=== PATIENT | female | born 1935 | race Caucasian/White ===

== ENCOUNTER 2020-07-18 08:10 | Observation (INO) | payer OTHER ==
--- OUTSIDE RECORDS SUMMARY | 2020-07-18 08:29 | XMS REPORT | Continuity of Care Document ---
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 15 Helio rso of cheek of cheek 00:00: n 00 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 10-28 Anderso 00:00: n 00 Pigmented Pigmented Disease Active skin skin 10-28 Anderso lesion lesion 00:00: n 00 Arrhythmia Arrhythmia Disease Active M D 10-28 Anderso 00:00: n 00 TIA TIA Disease Active 5-04 Anderso 00:00: n 00 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) Sick sinus Sick sinus Disease Active Overview : syndrome syndrome permanent And erso pacemaker n Hypothyroi Hypothyroi Disease Active M D dism dism Anderso n Hypertensi Hypertensi Disease Active D on on Anderso n Hyperlipid Hyperlipid Disease Active D emia emia Anderso n Gastroesop Gastroesop Disease Active D hageal hageal Anderso reflux reflux n disease disease Basal cell Basal cell Disease Active D carcinoma carcinoma Helio rso of other of other n specified specified sites of sites of skin skin Allergic Allergic Disease Active rhinitis rhinitis Mckay o n Presence Presence Disease Active MD of cardiac of cardiac An derso pacemaker pacemaker n Allergies, Adverse Reactions, Alerts This patient has no known allergies or adverse reactions. Family History Family Member Diagnosis Comments Start Date Stop Date Source Maternal grandfather Hypertension MD Bailey Maternal grandmother Hypertension MD Bailey Maternal grandmother Stroke MD Amee cochran Natural mother Hypertension Cuong son Paternal aunt Diabetes MD Bailey Paternal grandfather Hypertension MD Bailey Paternal grandmother Heart disease Edilma Bailey Paternal grandmother Hypertension MD Bailey Paternal grandmother Stroke MD Amee cochran Family member -Melanoma MD Bailey Family member Coronary heart disease MD Bailey (CHD) Family member Venous thrombosis MD Amee cochran Social History Social Habit Start Date Stop Date Quantity Comments Source History of tobacco Current smoker MD Bailey use Sex Assigned At MD Bashir on Cigarettes smoked 2016-12-21 2016-12-21 MD Helio montemayor current (pack per 00:00:00 00:00:00 day) - Reported Cigarette pack-years 2016-12-21 2016-12-21 MD Amee cochran 00:00:00 00:00:00 Tobacco use and 2016-12-21 2016-12-21 Never used MD Bashir on exposure 00:00:00 00:00:00 Alcohol intake 2016-12-21 2016-12-21 Current drinker MD Monica steven 00:00:00 00:00:00 of alcohol (finding) Tobacco Comment 2016-11-02 2016-11-02 1-1.5 ppd MD Bashir on 00:00:00 00:00:00 Alcohol Comment 2016-11-02 2016-11-02 socially MD Bashir on 00:00:00 00:00:00 Smoking Status Start Date Stop Date Source Former smoker 2016-12-21 00:00:00 2016-12-21 00:00:00 Cuong son Medications Ordered Filled Start Stop Current Ordering Indication Dosage Frequency Signature Comments Components Source Medication Medication Date Date Medication? Clinician (SIG) Name Name thyroid Yes 30mg Take 30 mg (ARMOUR 12-30 by mouth Anderso THYROID) 30 19:35: daily. n mg tab 33 tablet cholecalcif Yes 1000U Take 1,000 juni, 12-30 Units by Anderso vitamin D3, 19:35: mouth n 1,000 units 33 daily. tablet Reported on 11/04/2016 VIT A/VIT 2017- Yes 1{tbl} Take 1 MD C/VIT 7-06 tablet by Anderso E/ZINC/MATHEW 19:35: mouth n ER 33 daily. (PRESERVISI Reported ON AREDS on ORAL) 11/04/2016 loratadine 2017- Yes 10mg Take 10 mg M D (CLARITIN) 7-06 by mouth Cuong so 10 mg 19:35: as needed n tablet 33 for allergies. Reported on 12/16/2016 CLOPIDOGREL 2016- Yes 1{tbl} Take 1 MD BISULFATE 7-06 tablet by Cuong so (PLAVIX 19:35: mouth n ORAL) 33 daily. Reported on 12/16/2016 ALPRAZolam Yes .5mg Take 0.5 MD (XANAX) 0.5 5-08 mg by Anderso mg tablet 00:00: mouth n 00 daily as needed for anxiety. Reported on 11/04/2016 pravastatin Yes 1{tbl} Take 1 MD (PRAVACHOL) 4-17 tablet by And erso 40 mg 00:00: mouth n tablet 00 daily. Reported on 11/04/2016 fluticasone Yes 2{spray Inhale 2 MD (FLONASE) 4-17 } sprays Anderso 50 00:00: into each n mcg/spray 00 nostril nasal spray daily. citalopram Yes 1{tbl} Take 1 MD (CeleXA) 40 4-10 tablet by And erso mg tablet 00:00: mouth n 00 daily. amLODIPine 2017 Yes 1{tbl} Take 1 MD (NORVASC) 4-10 tablet by Cuong so 2.5 mg 00:00: mouth n tablet 00 daily. pantoprazol 2017- Yes 1{tbl} Take 1 MD e 4-05 tablet by Anderso (PROTONIX) 00:00: mouth n 40 mg EC 00 daily. tablet metoprolol Yes 1{tbl} Take 1 MD succinate 3-31 tablet by Cuong so (TOPROL XL) 00:00: mouth at n 50 mg 24 hr 00 bedtime. tablet losartan 2017 Yes 1{tbl} Take 1 MD (COZAAR) 2-13 tablet by Mckay o 100 mg 00:00: mouth n tablet 00 daily. Reported on 11/04/2016 mirtazapine 2017-0 Yes 15mg Take 15 mg MD MANCINI) 1-06 by mouth Mckay o 15 mg 00:00: daily as n tablet 00 needed for sleep. Reported on 12/16/2016 Procedures This patient has no known procedures. Encounters Start End Encounter Admission Attending Care Care Encounter Source Date/Time Date/Time Type Type Clinicians Facility Department ID 2020-04-15 2020-04-15 Cell Technician 2, Adc Lab [facility] [id number] 13:42:56 13:57:56 Visit Hugo [id number] [place] [id number] Tony [id number] [address] 2020-04-15 2020-04-15 Orders Doctor CORIE [id number] 00:00:00 00:00:00 Only Unassigned, [place] [id number] [place] [facility] [id number] Results This patient has no known results.
[2020-07-18 08:52] VITALS: BMI 30.4
[2020-07-18] MEDS ORDERED: ALBUTEROL 2.5 MG/3 ML NEB SOL NEB PRN (10:41)
[2020-07-18 10:48] LABS: Protime INR 1.06
[2020-07-18 10:51] LABS: Absolute Lymphocytes (CBC) 1.1 K/uL (0.7-4.9); Basophils % 0.6 % (0-1.3); Lymphocytes % 21.4 % (15.3-44.8); MPV 8.5 fL (7.6-11.3); RBC Red Blood Cell Count 2.21 M/uL (3.86-4.86)
[2020-07-18 10:58] LABS: ALT/SGPT 21 U/L (12-78); AST/SGOT 19 U/L (15-37); Alkaline Phosphatase 54 U/L (45-117); BUN Blood Urea Nitrogen 24 mg/dL (7-18); Bicarbonate 29 mmol/L (21-32); Bilirubin Direct < 0.1 mg/dL (0-0.2); Bilirubin Total 0.2 mg/dL (0.2-1.0); Ferritin 32.6 ng/mL (8-388); Glucose Level 94 mg/dL (74-106); Potassium 4.5 mmol/L (3.5-5.1); Protein, Total 5.8 g/dL (6.4-8.2); Sodium Level 141 mmol/L (136-145); Transferrin 230 mg/dL (200-360)
[2020-07-18] MEDS ORDERED: ACETAMINOPHEN 325 MG TABLET PO PRN (11:00)
[2020-07-18] MEDS ORDERED: NACHLORIDE 0.45% 1,000 ML IV SCH (11:00)
[2020-07-18] MEDS ORDERED: ONDANSETRON 4 MG (ODT) TAB PO PRN (11:00)
[2020-07-18] MEDS ORDERED: POLYETHYL GLY 3350 17 GM/DOSE PO PRN (11:00)
[2020-07-18] MEDS ORDERED: ONDANSETRON 4 MG/2 ML VIAL IV PRN (11:00)
[2020-07-18] MEDS ORDERED: LOPERAMIDE HCL 2 MG CAPSULE PO PRN (11:00)
[2020-07-18] MEDS ORDERED: DIPHENHYDRAMINE 25 MG TAB/CAP PO PRN (11:00)
[2020-07-18] MEDS ORDERED: ALPRAZOLAM 0.5 MG TABLET PO PRN (12:40)
[2020-07-18] MEDS ORDERED: TRAMADOL HCL 50 MG TAB PO PRN (12:40)
[2020-07-18 12:43] LABS: Blood Morphology Comment NOT SEEN (NOT SEEN); Platelet Estimate ADEQ
[2020-07-18] MEDS ORDERED: NA CHLORIDE 0.9% 250 ML ONE ×2 (13:58→17:16)
[2020-07-18] MEDS: LEVALBUTEROL 1.25 MG/3 ML NEB IH SCH ×2 (15:54→20:30)
[2020-07-18] MEDS: IPRATROPIUM BROM 0.5MG/2.5ML IH SCH ×2 (15:54→20:30)
--- NOTE | 2020-07-18 16:15 | P.SSS ---
Patient History Date of Service: 07/18/20 Reason for admission: FATIGUE History of Present Illness: [facility] CALLED ME LAST NIGHT WITH HG REPORT OF 7.1. SHE HAS NO SYMPTOMS OF BLEEDING BUT IS JUST FATIGUED. SHE HAD COVID INFECTION ABOUT A MONTH AGO. SHE HAS FULLY RECOVERED FROM IT. Allergies diazepam [From Valium] Allergy (Verified 12/21/16 14:57) Unknown sulfamethoxazole [From Bactrim] Allergy (Verified 12/21/16 14:57) Hives trimethoprim [From Bactrim] Allergy (Verified 12/21/16 14:57) Hives Home Medications: Alprazolam [Xanax] 0.5 mg PO BEDTIME PRN 07/18/20 Amlodipine Besylate [Norvasc] 2.5 mg PO DAILY 07/18/20 Citalopram Hydrobromide [Celexa] 40 mg PO DAILY 07/18/20 Ferrous Fumarate/Folic Acid [Hematinic-Folic Acid Tablet] 1 tab PO DAILY 07/18/20 Losartan Potassium [Cozaar] 100 mg PO DAILY 07/18/20 Metoprolol Succinate 50 mg PO DAILY 07/18/20 Mirtazapine [Remeron*] 1 tab PO BEDTIME 07/18/20 Pantoprazole [Protonix Tab*] 40 mg PO DAILY 07/18/20 Pravastatin Sodium 40 mg PO DAILY AT SUPPER 07/18/20 Thyroid Tab [[place] Thyroid*] 30 mg PO DAILY 07/18/20 Tizanidine [Zanaflex*] 1 tab PO BEDTIME 07/18/20 Tramadol HCl [Ultram] 50 mg PO BID PRN 07/18/20 - Past Medical/Surgical History Has patient received pneumonia vaccine in the past: Yes Diabetic: No -: emphysema -: arthritis -: hemorrhoids -: pacemaker -: stomach ulcers -: melanoma -: right finger amputation -: HTN -: HYpothyroid -: hernia repair -: thyroid removal -: tonsillectomy -: Pacemaker placement - Family History Mother -: Cancer Notes: Colon Cancer - Social History Smoking Status: Former smoker Alcohol use: No CD- Drugs: No Caffeine use: Yes Place of Residence: Home Review of Systems 10-point ROS is otherwise unremarkable General: Weakness Physical Examination - Vital Signs Temperature: 97.3 F Blood Pressure: 144/65 Pulse: 79 Respirations: 20 Pulse Ox (%): 96 - Physical Exam General: Alert, In no apparent distress HEENT: Atraumatic, PERRLA, Mucous membr. moist/pink, EOMI, Sclerae nonicteric Neck: Supple, 2+ carotid pulse no bruit, No LAD, Without JVD or thyroid abnormality Respiratory: Clear to auscultation bilaterally, Normal air movement Cardiovascular: Regular rate/rhythm, Normal S1 S2 Gastrointestinal: Normal bowel sounds, No tenderness Musculoskeletal: No tenderness Integumentary: No rashes Neurological: Normal gait, Normal speech, Normal strength at 5/5 x4 extr, Normal tone, Normal affect Lymphatics: No axilla or inguinal lymphadenopathy - Studies Laboratory Data (last 24 hrs) 07/18/20 09:55: Sodium 141, Potassium 4.5, BUN 24 H, Creatinine 0.87, Glucose 94, Total Bilirubin 0.2, AST 19, ALT 21, Alkaline Phosphatase 54 07/18/20 09:55: PT 12.5, INR 1.06, APTT 28.0 07/18/20 09:55: WBC 5.0, Hgb 6.8 L*, Hct 21.0 L, Plt Count 195 - Diagnosis (Problem(s)) (1) Acute anemia Current Visit: Yes Status: Acute Plan: SHE HAS NORMAL FERRITIN WILL CHECK GUAIAC START PROTONIX THERE IS NO GI DOCTOR AVAILABLE AT THIS HOSPITAL. PATIENT CAN FGO HOME AFTER HG COOMES UP MORE THAN 8 GM FU WITH HER GI DOCTOR. (2) Fibrotic lung diseases Current Visit: Yes Status: Acute - Disposition Disposition: ROUTINE DISCHARGE
[2020-07-18] MEDS ORDERED: ATORVASTATIN 10 MG TAB PO SCH (17:00)
[2020-07-18] MEDS ORDERED: TIZANIDINE 4 MG TABLET PO SCH (21:00)
[2020-07-18] MEDS ORDERED: MIRTAZAPINE 15 MG TAB PO SCH (21:00)
[2020-07-18 22:01] LABS: Hematocrit 26.2 % (36.0-45.0)
[2020-07-19] MEDS: IPRATROPIUM BROM 0.5MG/2.5ML IH SCH ×2 (02:35→08:35)
[2020-07-19] MEDS: LEVALBUTEROL 1.25 MG/3 ML NEB IH SCH ×2 (02:35→08:35)
[2020-07-19 03:37] LABS: Absolute Lymphocytes (CBC) 2.1 K/uL (0.7-4.9); Basophils % 0.7 % (0-1.3); Lymphocytes % 34.7 % (15.3-44.8); MPV 8.6 fL (7.6-11.3); RBC Red Blood Cell Count 2.93 M/uL (3.86-4.86)
[2020-07-19 03:52] LABS: Magnesium 2.1 mg/dL (1.8-2.4); Potassium 4.6 mmol/L (3.5-5.1)
[2020-07-19 08:20] VITALS: BP 146/67
[2020-07-19 08:58] VITALS: TEMP 98.2
[2020-07-19] MEDS ORDERED: CITALOPRAM 10 MG TABLET PO SCH (09:00)
[2020-07-19] MEDS ORDERED: HOME MED 1 EA UNK (Citalopram Hydrobromide [Celexa] 40 MG Tablet) PO SCH (09:00)
[2020-07-19] MEDS ORDERED: PANTOPRAZOLE 40MG TABLET PO SCH (09:00)
[2020-07-19] MEDS ORDERED: LOSARTAN POTASSIUM 50 MG TABLET PO SCH (09:00)
[2020-07-19] MEDS ORDERED: THYROID 30 MG TAB PO SCH (09:00)
[2020-07-19] MEDS ORDERED: METOPROLOL XL 50 MG TAB PO SCH (09:00)
[2020-07-19] MEDS ORDERED: AMLODIPINE 2.5 MG TAB PO SCH (09:00)
[2020-07-19 11:26] VITALS: O2SAT 94
[2020-07-21 18:38] LABS: Albumin, (SPE) 3.3 g/dL (3.8-4.8); Alpha-1-Globulins 0.3 g/dL (0.2-0.3); Alpha-2-Globulins 0.7 g/dL (0.5-0.9); Gamma Globulins 0.4 g/dL (0.8-1.7); INTERPRETATION Consistent with
== END 2020-07-19 12:20 | disposition home or self-care (01) ==
LOC: 2ND 08:10 → 4TH 13:40
PROVIDERS: ADMIT Internal Medicine; ATTEND Internal Medicine
DX: D64.9 Anemia, unspecified (principal); J84.10 Pulmonary fibrosis, unspecified; I10 Essential (primary) hypertension; J43.9 Emphysema, unspecified; E89.0 Postprocedural hypothyroidism; M19.90 Unspecified osteoarthritis, unspecified site; K25.9 Gastric ulcer, unspecified as acute or chronic, without hemorrhage or perforation; Z86.16 Personal history of COVID-19; Z95.0 Presence of cardiac pacemaker; Z88.2 Allergy status to sulfonamides; Z88.8 Allergy status to other drugs, medicaments and biological substances; Z85.820 Personal history of malignant melanoma of skin; Z87.891 Personal history of nicotine dependence; Z80.0 Family history of malignant neoplasm of digestive organs
CPT/HCPCS: 36430; 85025 ×2; 80048 ×2; 36415 ×2; 86900; 83735; 86850; 85610; 85044; 86901; 80076; 85730; 85018; 85014; 82728; 82607; 83540; 84466; 84165; 94640; U0003; G0378 ×2; P9016 ×2; J7050 ×2

== ENCOUNTER 2021-05-27 06:32 | Day surgery (SDC) | payer OTHER ==
--- NOTE | 2021-05-26 16:30 | RAD REPORT ---
EXAM DESCRIPTION: RAD - Chest Pa And Lat (2 Views) - 05/26/2021 4:00 pm CLINICAL HISTORY: Pre op, pending soft tissue mass removal COMPARISON: March 2020 TECHNIQUE: Frontal and lateral views of the chest were obtained. FINDINGS: The lungs are scattered fibrotic lung change present. No peripheral mass or consolidation. Right-sided diaphragmatic eventration again noted. Pacemaker is in place. No failure or volume overl oad finding. Prominent interstitial pattern is stable. Heart size is normal and central vasculature is within normal limits. No pleural effusion or pneu mothorax seen. No acute bony finding noted. No aortic abnormality. IMPRESSION: No acute cardiopulmonary process. No significant change from comparison study.
[2021-05-26 16:40] LABS: Absolute Lymphocytes (CBC) 1.9 K/uL (0.7-4.9); Basophils % 0.6 % (0-1.3); Hematocrit 33.4 % (36.0-45.0); Lymphocytes % 27.9 % (15.3-44.8); MPV 9.2 fL (7.6-11.3); RBC Red Blood Cell Count 3.64 M/uL (3.86-4.86)
[2021-05-26 16:44] LABS: Potassium 4.1 mmol/L (3.5-5.1)
[2021-05-27] MEDS ORDERED: propofoL 200 MG/20 ML VIAL IV ONE (07:11)
[2021-05-27] MEDS ORDERED: FENTANYL CITR 100 MCG/2 ML ONE (07:11)
[2021-05-27] MEDS ORDERED: LIDOCAINE 2% MPF 5 ML VIAL ONE (07:11)
[2021-05-27] MEDS ORDERED: BUPIVACAINE 0.5% PF 10 ML VIAL ONE (07:13)
[2021-05-27] MEDS ORDERED: CEFAZOLIN/NS 1gm 1 GM/50 ML BAG ONE (07:14)
[2021-05-27] MEDS ORDERED: Ringers Lactate 1,000 ML IV ONE (07:14)
[2021-05-27] MEDS ORDERED: EPHEDRINE SULF 50 MG/ML VIAL ONE (08:01)
[2021-05-27] MEDS ORDERED: ONDANSETRON 4 MG/2 ML VIAL ONE (08:04)
[2021-05-27] MEDS ORDERED: Mastisol Adhesive Liq ONE (08:28)
[2021-05-27] MEDS ORDERED: KETOROLAC 30 MG/ML INJ ONE (08:47)
--- NOTE | 2021-05-27 10:01 | OP ---
Date of Procedure: 05/27/2021 Surgeon: Daniel De La Cruz MD Carbon Paper Coating Machine Setter: Catracho Alvarado, surgical technologist. Preoperative Diagnosis: Bilateral arm masses. Postoperative Diagnosis: Bilateral arm masses. Procedures: 1.Wide excision, left arm mass 6 x 3 cm with layered closure. 2.Wide excision, right arm mass 5 x 2 cm with layered closure. Estimated Blood Loss: Minimal. Specimen: Left arm mass, squamous cell carcinoma, margins free. Right arm mass, actinic keratosis, seborrheic keratosis. Finding: As above. Anesthesia: General. Complications: None. Disposition: The patient tolerated the procedure in stable condition and taken to Recovery in good g eneral condition. Procedure In Detail: The patient was brought to the OR and placed in supine position. General anest hesia was begun. The patient was prepped and draped in the usual sterile fashion. Marcaine 0.5% was infiltrated locally for postop pain control. Then, 15 blade was used to make a 5 x 2 cm incision on the right forearm. Subcutaneous tissue was divided, and entire raised mass which was approximately 1.5 cm was excised and sent to Pathology where a frozen section revealed actinic keratosis and seborr heic keratosis with solar elastosis. No evidence of malignancy. The wound was irrigated and bleedin g controlled with cautery. Flaps created and then 4-0 chromic used to reapproximate the subcutaneous tissue and because the patient's skin was very thin and fragile. I used Dermabond to close the skin and sterile dressing was applied. Then, the left forearm near the elbow a 2.5 cm raised mass was th ere with central ulceration. This was excised with incision 6 x 3 cm. Subcutaneous tissue was divid ed. The entire mass was excised. Frozen section revealed squamous cell carcinoma. Margins were teja e. Wound was irrigated. Bleeding controlled with cautery and 4-0 chromic used to approximate the young bcutaneous tissue, and Dermabond used to close the skin. Sterile dressing was applied. The patient was awakened and taken to Recovery in good general condition. Discharge Note: The patient will go to Day Surgery and home when stable. Disposition: Home. Condition: Stable. Discharge Instructions: Resume home medications and diet. Activity as tolerated. No heavy lifting. Keep dressing clean and dry. Sponge bathe only. Cover dressing with plastic when showering. Tyle nol No. 3 one tablet p.o. q.4 p.r.n. pain. Follow up in my office in a week. Call for appointment. XAVIER/KALEN Voice ID: [id number] Report ID: [id number]
[2021-05-27] MEDS ORDERED: CODEINE 30MG/APAP 300MG TAB PO ONE (10:07)
[2021-05-27 10:47] VITALS: BP 157/57; TEMP 98; O2SAT 95
--- NOTE | 2021-05-27 16:23 | EKG ---
Test Date: 2021-05-26 Test Time: 15:36:39 Sales Performance Manager: TYRONE MEASUREMENT RESULTS: Intervals: Rate: 91 VA: 174 QRSD: 202 QT: 458 QTc: 563 [place]: P: 65 VA: 174 QRS: -68 T: 93 INTERPRETIVE STATEMENTS: Electronic ventricular pacemaker Compared to ECG 12/21/2016 15:56:49 No significant changes Electronically Signed On 05-27-21 16:21:27 CLASSIFICATION INSPECTOR by Colton Mathew
== END 2021-05-27 10:30 | disposition home or self-care (01) ==
LOC: OR 06:32
PROVIDERS: ATTEND Surgery
PROC: 0JBG0ZZ Excision of Right Lower Arm Subcutaneous Tissue and Fascia, Open Approach (ICD-10-PCS; 2021-05-27)
PROC: 0JBH0ZZ Excision of Left Lower Arm Subcutaneous Tissue and Fascia, Open Approach (ICD-10-PCS; principal; 2021-05-27 07:30)
DX: C44.629 Squamous cell carcinoma of skin of left upper limb, including shoulder (principal); L57.0 Actinic keratosis; L82.1 Other seborrheic keratosis; Z20.822 Contact with and (suspected) exposure to COVID-19
CPT/HCPCS: 93005; 85025; 80048; 36415; 88331; 88332; 88305; 71046; 11606; 11406; U0003; J2704; J3010; J0690; J7120; J2405

== ENCOUNTER 2021-12-01 09:07 | Inpatient (IN) | payer OTHER ==
--- OUTSIDE RECORDS SUMMARY | 2021-12-01 09:10 | XMS REPORT | Clinical Summary ---
:1935 Author Organization [facility] Address [address] [place] [address] Care Team Providers Name Role Phone Sudheer Benson MD Unavailable MD Gila Primary Care Provider Allergies Active Allergy Reactions Severity Noted Date Comments Sulfamethoxazole-Trimethoprim Rash Low 10/28/2016 Diazepam Other (See Comments) 10/28/2016 Hyperac tivty Medications Medication Sig Dispensed Refills Start Date End Date Status citalopram (CeleXA) 40 Take 1 tablet by 0 10/04/2016 Active mg tablet mouth daily. amLODIPine (NORVASC) Take 1 tablet by 0 10/04/2016 Active 2.5 mg tablet mouth daily. losartan (COZAAR) 100 Take 1 tablet by 0 08/09/2016 Active mg tablet mouth daily. Reported on 11/04/2016 metoprolol succinate Take 1 tablet by 0 09/24/2016 Active (TOPROL XL) 50 mg 24 mouth at bedtime. hr tablet pantoprazole Take 1 tablet by 0 09/29/2016 Active (PROTONIX) 40 mg EC mouth daily. tablet pravastatin Take 1 tablet by 0 10/11/2016 Active (PRAVACHOL) 40 mg mouth daily. tablet Reported on 11/04/2016 thyroid (ARMOUR Take 30 mg by 0 Active THYROID) 30 mg tab mouth daily. tablet cholecalciferol, Take 1,000 Units 0 Active vitamin D3, 1,000 by mouth daily. units tablet Reported on 11/04/2016 VIT A/VIT C/VIT Take 1 tablet by 0 Active E/ZINC/COPPER mouth daily. (PRESERVISION AREDS Reported on ORAL) 11/04/2016 loratadine (CLARITIN) Take 10 mg by 0 Active 10 mg tablet mouth as needed for allergies. Reported on 12/16/2016 mirtazapine (REMERON) Take 15 mg by 1 07/02/2016 Active 15 mg tablet mouth daily as needed for sleep. Reported on 12/16/2016 ALPRAZolam (XANAX) 0.5 Take 0.5 mg by 0 11/01/2016 Active mg tablet mouth daily as needed for anxiety. Reported on 11/04/2016 fluticasone (FLONASE) Inhale 2 sprays 2 10/11/2016 Active 50 mcg/spray nasal into each nostril spray daily. CLOPIDOGREL BISULFATE Take 1 tablet by 0 Active (PLAVIX ORAL) mouth daily. Reported on 12/16/2016 Active Problems Problem Noted Date Acquired deformity of nose 11/29/2016 Basal cell carcinoma of cheek 11/08/2016 Melanoma in situ 10/28/2016 Pigmented skin lesion 10/28/2016 Arrhythmia 10/28/2016 TIA 10/28/2016 Squamous cell carcinoma of skin (aka Cutaneous squamou s cell carcinoma) Sick sinus syndrome Overview: permanent pacemaker Hypothyroidism Hypertension Hyperlipidemia Gastroesophageal reflux disease Basal cell carcinoma of other specified sites of skin Allergic rhinitis Presence of cardiac pacemaker Surgical History Surgery Date Site/Laterality Comments CARDIAC PACEMAKER 09/01/2011 PLACEMENT FINGER AMPUTATION 11/26/2015 - right 5th digi t 12/25/2015 EGD 09/25/2016 - 10/24/2016 CATARACT EXTRACTION, BILATERAL WI EXC SKIN MALIG <0.5 CM 11/08/2016 Right Proced ure: EXCISION OF FACE,FACIAL MALIGNANT LESION OF NOSE; Surgeon: Sharad Uriostegui MD; Location: MAIN OR; Servic e: HN - HEAD & NECK SURG DEVIN WI REMOVE EYELID LESN (NOT 11/08/2016 Right Proce dure: EXCISION OF CHALAZION) LESION OF CHEEK; Surgeon: Sharad chua MD; Location: MAIN O R; Service: HN - HE AD & NECK SURGERY WI ADJ TISS XFER 11/12/2016 Right Procedure: REAR RANGEMENT HEAD,FAC,HAND <10 SQCM OF ADJACE NT TISSUE FOR REPAIR OF DEFECT OF NOSE; Surgeon: Ney Ovalle MD; Location: [facility]; Service: PLS - P LASTIC SURGERY WI FLAP ISLAND PEDICLE 11/12/2016 Nose/Right Procedure : FORMATION OF ANATOMIC NAMED AXIAL ISLAND PEDI ELYSSA FLAP GRAFT; ARTERY Surgeon: Irlanda Ovalle MD; Location: [facility] OR; Service: PLS - P LAST SURGERY WI REMV TISSUE FOR GRAFT 11/12/2016 Nose/Right Procedu re: EAR CARTILAGE OTHR GRAFT AND FULL T HICKNESS SKIN GRAFT ; Lema rgeon: Edilma Clements; Location: O R; Service: PLS - P LAST SURGERY THYROIDECTOMY, PARTIAL TONSILLECTOMY HERNIA REPAIR x's 2 right groi n OTHER SURGICAL HISTORY ruptured ulcer WI DELAY/SECTN FLAP 12/17/2016 Face/Right Procedure: D IVISION OF LID,NOS,EAR,LIP NASAL FLAP; Darek geon: Edilma Clements; Location: O R; Service: PLS - P LAST SURGERY Medical History Medical History Date Comments Hypothyroidism Allergic rhinitis Sick sinus syndrome 08/2011 pt denies syncope. sp pacemaker. Hypertension 2011 pt does not check BP at home. 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 pt was sta rted on Plavix Deep vein thrombosis of right lower 2007 ques tionable dx. pt reports that extremity she had a "blood dawna t in the vein" of her right leg shayy t caused edema. pt reports that she does not recall being treated on ant icoagulation. Chronic obstructive pulmonary disease pt does not use MDI or nebulizers Family History Medical History Relation Name Comments Hypertension Maternal Grandfather Hypertension Maternal Grandmother Stroke Maternal Grandmother of str iraida at 82 Hypertension Mother Diabetes Paternal Aunt Hypertension Paternal Grandfather Heart disease Paternal Grandmother "heart dise ase" Hypertension Paternal Grandmother Stroke Paternal Grandmother of str iraida at 87 -Melanoma Neg Hx Coronary heart disease (CHD) Neg Hx Venous thrombosis Neg Hx Relation Name Status Comments Maternal Grandfather Maternal Grandmother Mother Paternal Aunt Paternal Grandfather Paternal Grandmother Social History Tobacco Use Types Packs/Day Years Used Date Former Smoker Cigarettes 1.25 40 Quit: 1996 Smokeless Tobacco: Never Used Comments: 1-1.5 ppd Alcohol Use Standard Drinks/Week Comments Yes 0 (1 standard drink = 0.6 oz pure alcoho l) socially Alcohol Habits Answer Date Recorded How often do you have a drink containing alcohol? Not asked How many drinks containing alcohol do you have on a typical Not asked day when you are drinking? How often do you have six or more drinks on one occasion? No t asked Comment: socially 11/02/2016 Sex Assigned at Date Recorded Not on file Obstetrics History Last Filed Vital Signs Not on file Plan of Treatment Health Maintenance Due Date Last Done Comments COVID-19 Vaccination (1) 02/26/1940 Medical Devices Implanted Type Area Staffing Clerk Device Shelf Model / Identifier Expiration Date Ser ial / Lot [employer] Pacemaker Medical Results Not on fileafter 12/01/2020 Insurance Payer Benefit Plan / Subscriber ID Effective Dates Phone Addre ss Type Group MEDICARE MEDICARE PART [id number] 2000-[place] [phone] [place] Medicare A AND B t 2 SOLUTIONS [address] [place] [address] GENERIC GENERIC [id number] 2000-Presen [phone] [phone] [place] [address] Advance Directives Code Status Date Activated Date Inactivated Comments Full Code 12/17/2016 7:14 AM 12/17/2016 12:24 PM Full Code 11/12/2016 1:43 PM 11/12/2016 8:42 PM Care Teams Cotton Gin Yard Supervisor Relationship Specialty Start Date End Date Sudheer Benson MD PCP - External Referring 10/21/16 [facility] [place] [address] Sharad Uriostegui, MARY - General Head and Neck Surgery [facility] [place] [address]
--- OUTSIDE RECORDS SUMMARY | 2021-12-01 09:10 | XMS REPORT | Continuity of Care Document ---
:1935 Author Organization [facility] t Address [facility] [address] [place] [address] Care Team Providers Name Role Phone ATTAR Attending Clinician Unavailable ATTAR Attending Clinician Unavailable 2, Lab Attending Clinician Unavailable Attar MD Attending Clinician Doctor Unassigned, Name Attending Clinician Unavailable ATTAR Admitting Clinician Unavailable Payers Payer Name Policy Type Policy Number Effective Date Expiration Date Chelly he MEDICARE PART A [id number] 2000 \T\ B 00:00:00 Problems This patient has no known problems. Allergies, Adverse Reactions, Alerts Allergy Allergy Status Severity Reaction(s) Onset Inactive Treating Comm ents Source Name Type Date Date Clinician NO KNOWN Drug Active [facility] Social History Social Habit Start Date Stop Date Quantity Comments Source Sex [facility] to [facility]2 [facility] sure [facility] Smoking Status Start Date Stop Date Source Unknown if ever smoked [facility] Medications This patient has no known medications. Procedures Procedure Date / Time Performed Performing Clinician Sour e N-TERMINAL PRO-BNP 2020-04-15 18:47:00 Navin Reyes [facility] PHYSICIAN ORDERS 2020-04-15 05:01:00 Doctor Unassigned, No Unive rsity [facility] Name Medical Branch Encounters Start End Encounter Admission Attending Care Care Encounter Source Date/Time Date/Time Type Type Clinicians Facility Department ID 2020-12-19 2020-12-19 Outpatient RUIZ [facility] [id number] [place] 00:00:00 00:00:[address] 2020-04-15 2020-04-15 Outpatient R [facility] [id number] [facility] 14:45:00 14:45:00 ity [facility] 2020-04-15 2020-04-15 Outpatient R [facility] [id number] Univers 14:45:00 14:45:00 NAVIN itcielo ryan f [facility] 2020-04-15 2020-04-15 Air Control Electronics Operator 2, Adc Lab [facility] [id number] 13:42:56 13:57:56 Visit Hugo [id number] [place] [id number] Professio [id number] [address] 2020-04-15 2020-04-15 Air Control Electronics Operator 2, Adc Lab [facility] [id number] Univers 13:42:56 13:57:56 Visit AttNavin [place] [id number] ity [facility] [id number] [place] Profess[place] [phone] Co dical [address] 2020-04-15 2020-04-15 Orders Doctor CORIE [id number] 00:00:00 00:00:00 Only Unassigned, [place] [id number] [facility] [id number] [facility] 2020-04-15 2020-04-15 Orders Doctor CORIE [id number] Univers 00:00:00 00:00:00 Only Unassigned, [place] [id number] ity of [facility] [id number] Arun as [phone] [address] Results Test Description Test Time Test Comments Results Result Comments Source N-TERMINAL PRO-BNP 2020-04-15 19:25:00 Test Item Value Reference Range Interpretation Comme nts NT-proBNP (test code = 519 pg/mL See_Comment H [Aut omated message] The [id number]) system which ge nerated this result tra nsmitted reference range : <=450. The reference r jeff was not used to int erpret this result as favian l/abnormal. DANAE (test code = DANAE) Biotin has been reported to cause a negative bias, interpret results relative to patient's use of biotin. Lab Interpretation (test Abnormal code = 45310-8) [facility]
[2021-12-01 09:52] LABS: Absolute Lymphocytes (CBC) 1.1 K/uL (0.7-4.9); Hematocrit 21.9 % (36.0-45.0); Lymphocytes % 10.1 % (15.3-44.8); MCV 87.4 fL (80-100); MPV 8.1 fL (7.6-11.3); RBC Red Blood Cell Count 2.51 M/uL (3.86-4.86)
[2021-12-01 09:54] LABS: Protime INR 1.05
--- NOTE | 2021-12-01 10:06 | ER ---
Nurse's Notes [facility] Name: Elsa Mckeon Age: 86 yrs Sex: Female : 1935 Arrival Date: 12/01/2021 Time: 09:08 Bed 13 Private MD: Chato Werner V Diagnosis: GI Bleed/ Gastrointestinal hemorrhage, unspecified;Anemia, unspecified Presentation: 12/01 09:16 Chief complaint: Patient states: she has been having "stomach issues" for a few weeks ap3 now. Patients daughter states that it was initially abdominal pain and diarrhea, but is now abdominal pain and nausea. Patients daughter reports having seen her PCP, and has been trying to get into see Dr. Aviles, however has been getting the run around on cardiac clearance for further testing. Patients daughter reports the patient needs an endoscopy and colonoscopy, but that while waiting for approval and scheduling, the patients symptoms have been getting worse. Coronavirus screen: At this time, the client does not indicate any symptoms associated with coronavirus-19. Ebola Screen: No symptoms or risks identified at this time. Initial Sepsis Screen: Does the patient meet any 2 criteria?. Initial Sepsis Screen: Does the patient have a suspected source of infection? No. Patient's initial sepsis screen is negative. Risk Assessment: Do you want to hurt yourself or someone else? Patient reports no desire to harm self or others. Onset of symptoms was October 2021. 09:16 Method Of Arrival: Ambulatory ap3 09:16 Acuity: TATIANA 3 ap3 Triage Assessment: 09:21 General: Appears uncomfortable, Behavior is calm. Pain: Complains of pain in abdomen. ap3 Neuro: Level of Consciousness is awake, alert, obeys commands, Oriented to person, place, time, situation, Speech is normal. Cardiovascular: Patient's skin is warm and dry. Respiratory: Reports shortness of breath on exertion Airway is patent Respiratory effort is even, unlabored. GI: Reports lower abdominal pain, upper abdominal pain, nausea. Historical: - Allergies: 09:20 Valium; ap3 09:20 Bactrim; ap3 - PMHx: 09:20 Hyperlipidemia; Hypertension; Hypothyroidism; stroke-like episode; ap3 - PSHx: 09:20 pacemaker; ap3 - Immunization history:: Client reports receiving the 2nd dose of the Covid vaccine. - Social history:: Smoking status: Patient denies any tobacco usage or history of. - Family history:: not pertinent. - Hospitalizations: : No recent hospitalization is reported. Screenin:22 Abuse screen: Denies threats or abuse. Nutritional screening: No deficits noted. ap3 Tuberculosis screening: No symptoms or risk factors identified. Assessment: 11:28 General: Appears in no apparent distress. comfortable, Behavior is calm, cooperative. jh6 Pain: Complains of pain in diaphragm Pain currently is 0 out of 10 on a pain scale. Quality of pain is described as burning. GI: Bowel sounds present X 4 quads. Abd is soft and non tender X 4 quads. 12:15 Reassessment: Patient and/or family updated on plan of care and expected duration. Pain jh6 level reassessed. Patient denies pain at this time. Patient states symptoms have improved. Vital Signs: 09:16 Pulse 97; Resp 17; Temp 99(TE); Pulse Ox 99% on R/A; Weight 72.57 kg; Height 5 ft. 1 ap3 in. (154.94 cm); 09:16 BP 117 / 59; ap3 12:15 BP 132 / 49; Pulse 95; Resp 18; Pulse Ox 100% ; Pain 0/10; jh6 09:16 Body Mass Index 30.23 (72.57 kg, 154.94 cm) ap3 ED Course: 09:08 Patient arrived in ED. as 09:09 Chato Werner MD is Private Physician. as 09:12 Abel Harry MD is Attending Physician. rn 09:20 Triage completed. ap3 09:22 Arm band placed on left wrist. ap3 09:23 Pema Schneider RN is Primary Nurse. jh6 10:00 Bed in low position. Call light in reach. Side rails up X 1. Adult w/ patient. jh6 10:05 Chato Werner MD is Hospitalizing Provider. rn 10:44 CT Abd/Pelvis - IV Contrast Only In Process Unspecified. EDMS Administered Medications: 10:50 Drug: Zofran (Ondansetron) 4 mg Route: IVP; Site: right antecubital; jh6 10:50 Drug: ProTONIX (pantoprazole) 40 mg Route: IVP; Site: right antecubital; jh6 12:57 Drug: ProTONIX (pantoprazole) 8 mg/hr Route: IV; Rate: 25 ml/hr; Site: right [facility] antecubital; 13:55 Drug: Zosyn (piperacillin-tazobactam) 3.375 grams Route: IVPB; Infused Over: 60 mins; [facility] Site: left antecubital; Outcome: 10:06 Decision to Hospitalize by Provider. rn 17:27 Admitted to Tele accompanied by tech, via wheelchair, room 206. [facility] 17:27 Condition: good 17:27 Discharge instructions given to patient. 17:28 Patient left the ED. [facility] Signatures: Dispatcher [employer] Sheela Schuster Roman, MD MD rn Prokisch, Amanda, RN RN Pema Nunez RN RN 6
--- NOTE | 2021-12-01 10:07 | EDPHYS ---
Physician Documentation [facility] Name: Elsa Mckeon Age: 86 yrs Sex: Female : 1935 Arrival Date: 12/01/2021 Time: 09:08 Bed 13 Private MD: Chato Werner V ED Physician Abel Harry HPI: 12/01 09:51 This 86 yrs old Female presents to ER via Ambulatory with complaints of Abdominal Pain, rn Back Pain, Nausea, Decreased Appetite. 09:51 The patient presents with abdominal pain in the epigastric area. Onset: The rn symptoms/episode began/occurred 3 week(s) ago. The symptoms do not radiate. Associated signs and symptoms: Pertinent positives: anorexia, nausea, Pertinent negatives: blood in stools, chest pain, fever. The symptoms are described as crampy. Modifying factors: The symptoms are alleviated by nothing, the symptoms are aggravated by food, touching the area. Severity of pain: At its worst the pain was moderate in the emergency department the pain is unchanged. The patient has experienced similar episodes in the past. The patient has been recently seen by a physician:. Pt reports 3 weeks of upper abd pain, nausea, decreased appetite, fatigue, and weight loss. Told to f/u with GI for endoscopy after bloodwork showed anemia and blood in stool with Dr. Werner. Has had GI bleed in past with ulcer, and has had ulcer perforation in past. States compliant with antacids. . Historical: - Allergies: 09:20 Valium; ap3 09:20 Bactrim; ap3 - PMHx: 09:20 Hyperlipidemia; Hypertension; Hypothyroidism; stroke-like episode; ap3 - PSHx: 09:20 pacemaker; ap3 - Immunization history:: Client reports receiving the 2nd dose of the Covid vaccine. - Social history:: Smoking status: Patient denies any tobacco usage or history of. - Family history:: not pertinent. - Hospitalizations: : No recent hospitalization is reported. ROS: 09:51 Constitutional: Negative for fever, chills, + weight loss Eyes: Negative for injury, rn pain, redness, and discharge, Neck: Negative for injury, pain, and swelling, Cardiovascular: Negative for chest pain, palpitations, and edema, Respiratory: Negative for shortness of breath, cough, wheezing, and pleuritic chest pain, Abdomen/GI: + epigastric abd pain and nausea/vomiting MS/Extremity: Negative for injury and deformity, Skin: Negative for injury, rash, and discoloration, Neuro: + generalized weakness and fatigue Exam: 09:51 Constitutional: This is a well developed, well nourished patient who is awake, alert, return agent to bed without assistance from walker Head/Face: Normocephalic, atraumatic. Cardiovascular: Regular rate and rhythm. No pulse deficits. Respiratory: No increased work of breathing, no retractions or nasal flaring. Abdomen/GI: soft, + epigastric tenderness, no rebound, no distension Skin: Warm, dry MS/ Extremity: Pulses equal, no cyanosis. Neuro: Awake and alert, GCS 15 Vital Signs: 09:16 Pulse 97; Resp 17; Temp 99(TE); Pulse Ox 99% on R/A; Weight 72.57 kg; Height 5 ft. 1 ap3 in. (154.94 cm); 09:16 BP 117 / 59; ap3 12:15 BP 132 / 49; Pulse 95; Resp 18; Pulse Ox 100% ; Pain 0/10; jh6 09:16 Body Mass Index 30.23 (72.57 kg, 154.94 cm) ap3 MDM: 09:12 Patient medically screened. rn 10:05 Differential diagnosis: diverticulitis, gastritis, gastroesophageal reflux disease, GI rn Bleed, Peptic Ulcer Disease, Perf. Duodenal Ulcer, Perf. Gastric Ulcer. Data reviewed: vital signs, nurses notes, lab test result(s), and as a result, I will admit patient. Counseling: I had a detailed discussion with the patient and/or guardian regarding: the historical points, exam findings, and any diagnostic results supporting the discharge/admit diagnosis, lab results, the need for further work-up and treatment in the hospital. Admission orders: after a detailed discussion of the patient's condition and case, the admit orders are written by me. 11:31 ED course: Consulted with Dr. Pritchard, will consult on patient when admitted, rn recommends abx, GI consult, and colonoscopy for now, does not recommend surgery at this point.. 12/01 09:33 Order name: CBC with Diff; Complete Time: 10:03 rn 12/01 09:33 Order name: CMP; Complete Time: 10:25 rn 12/01 09:33 Order name: Lipase; Complete Time: 10:25 rn 12/01 09:33 Order name: Protime (+inr); Complete Time: 10:03 rn 12/01 09:33 Order name: Ptt, Activated; Complete Time: 10:03 rn 12/01 09:33 Order name: Type And Screen rn 12/01 09:33 Order name: CT Abd/Pelvis - IV Contrast Only; Complete Time: 11:19 rn 12/01 10:06 Order name: SARS-COV-2 RT PCR (Document "Date of Onset" if Symptomatic); Complete Time: rn 11:12/01 10:10 Order name: Bb Add On bd 12/01 10:22 Order name: Packed RBC Leukored EDMS 12/01 09:33 Order name: IV Saline Lock; Complete Time: 09:49 rn 12/01 09:33 Order name: Labs collected and sent; Complete Time: 09:50 rn Administered Medications: 10:50 Drug: Zofran (Ondansetron) 4 mg Route: IVP; Site: right antecubital; [facility] 10:50 Drug: ProTONIX (pantoprazole) 40 mg Route: IVP; Site: right antecubital; [facility] 12:57 Drug: ProTONIX (pantoprazole) 8 mg/hr Route: IV; Rate: 25 ml/hr; Site: right 6 antecubital; 13:55 Drug: Zosyn (piperacillin-tazobactam) 3.375 grams Route: IVPB; Infused Over: 60 mins; [facility] Site: left antecubital; Disposition Summary: 12/01/21 10:06 Hospitalization Ordered Hospitalization Status: Inpatient Admission rn Provider: Chato Werner rn Location: Telemetry/[facility] (Inpatient) rn Condition: Stable rn Problem: new rn Symptoms: have worsened rn Bed/Room Type: Standard rn Room Assignment: 206(12/01/21 15:47) dw Diagnosis - GI Bleed/ Gastrointestinal hemorrhage, unspecified rn - Anemia, unspecified rn Forms: - Medication Reconciliation Form rn - SBAR form rn Signatures: Dispatcher [employer] Tamara Pace RN RN dw Nieto, Roman, MD MD rn Prokisch, Amanda, RN RN 3 Pema Schneider RN RN 6 Corrections: (The following items were deleted from the chart) 15:47 10:06 rn dw
[2021-12-01 10:11] LABS: Albumin 3.1 g/dL (3.4-5.0); Bilirubin Total 0.2 mg/dL (0.2-1.0); Potassium 4.1 mmol/L (3.5-5.1); Protein, Total 6.8 g/dL (6.4-8.2)
[2021-12-01] MEDS ORDERED: PANTOPRAZOLE 40 MG INJ ONE (10:40)
[2021-12-01] MEDS ORDERED: ONDANSETRON 4 MG/2 ML VIAL ONE ×2 (10:40→13:36)
--- NOTE | 2021-12-01 11:15 | RAD REPORT ---
EXAM DESCRIPTION: CT - Abdomen Pelvis W Contrast - 12/01/2021 10:43 am CLINICAL HISTORY: abdominal pain, not localized, vomiting COMPARISON: Abdomen Pelvis W Contrast dated 12/20/2016 TECHNIQUE: Biphasic, helical CT imaging of the abdomen and pelvis was performed following 100 ml non -ionic IV contrast. No oral contrast administered. All CT scans are performed using dose optimization technique as appropriate and may include automated exposure control or mA/KV adjustment according to patient size. FINDINGS: No suspicious findings in the lung bases. No pericardial thickening or effusion. A 2 centi meter diameter low-density or fluid attenuation perispinal mass is present at T9. This is unchanged f rom 2017. The liver and spleen show no suspicious findings. No portal vein abnormality. No gallbladder or bilia ry tree abnormality seen. Numerous calcifications are present within or along the peripheral margins of the pancreatic head an d uncinate process. A few calcifications are seen adjacent to the body of the pancreas. No active per ipancreatic fat stranding seen. No discrete pancreatic mass or adjacent abnormal lymphadenopathy. Symmetric renal function is seen with no hydronephrosis or suspicious renal mass. No pyelonephritis o r acute parenchymal process. A 2.8 centimeter lateral simple cyst mid right kidney a 12 millimeter lo w-density capsular mass anterior mid left kidney unchanged from 2017. No adrenal abnormalities. Parti ally filled urinary bladder shows no suspicious findings. Uterus and ovaries show no suspicious findi ngs. No gastric dilatation or gastric wall thickening. No small bowel abnormality identifiable. Tortuous a nd redundant sigmoid colon is seen with minimal diverticulosis. No acute diverticulitis findings. In the right-side mesenteries a right lower quadrant a 3.7 centimeter diameter rounded masses present with central low density (27 Hounsfield units) and irregular or spiculated margins. No air or calcif ication in this mass. There is a minimal amount of stranding or edema in the adjacent fat. The termin al ileum and ileocecal valve along the right lateral margin of this mass are unremarkable. A normal a ppendix is not identified. There is a tubular structure that is believed to be the appendix that exte nds towards this mass. No other central mesenteric mass or abnormal lymphadenopathy. The mass is potentially an abscess related to contained perforated appendicitis. Appendix origin is t he primary consideration. An appendix related malignancy is possible. A non appendiceal mesenteric ma lignant process is possible. Due to surrounding bowel, the mass is not amenable to percutaneous drain age or tissue sampling. There is no free air or pneumatosis. No other area of inflammatory stranding. Left-side fat filled he rnia is unchanged. No suspicious bony findings. IMPRESSION: Irregularly marginated 3.7 centimeter low-density mass in the right lower quadrant in pr oximity to the tip of the cecum and expected location of the appendix. Abscess from contained perforated appendicitis would be a consideration. Appendix or mesenteric malig nant process also considerations. The right lower quadrant mass is surrounded by bowel and is not amenable to percutaneous drainage or tissue sampling. Chronic pancreatitis changes are evident with no acute pancreatic process.
[2021-12-01] MEDS ORDERED: PANTOPRAZOLE INJ 80 MG in NA CHLORIDE 0.9% 250 ML IV ONE (12:45)
[2021-12-01] MEDS ORDERED: PIPERACIL/TAZO 3.375 GM VIAL IV ONE (13:13)
[2021-12-01] MEDS ORDERED: NA CHLORIDE 0.9% 100 ML ONE (13:13)
[2021-12-01] MEDS: D5.45NS W/KCL 20MEQ 1,000 ML IV SCH ×2 (13:24→23:24)
[2021-12-01] MEDS ORDERED: MORPHINE 2 MG/ML SYR ONE (13:35)
[2021-12-01] MEDS ORDERED: D5 0.45 NS 1,000 ML IV ONE (13:36)
[2021-12-01] MEDS: MORPHINE 2 MG/ML SYR IV PRN ×2 (13:58→21:23)
[2021-12-01] MEDS: ONDANSETRON 4 MG/2 ML VIAL IV PRN (13:59)
[2021-12-01 18:57] VITALS: BMI 30.2
[2021-12-01] MEDS: PIPER TAZO 3.375 GM in NA CHLORIDE 0.9% 100 ML IV SCH (21:08)
[2021-12-01] MEDS ORDERED: ALPRAZOLAM 0.5 MG TABLET PO PRN (21:44)
--- NOTE | 2021-12-01 21:55 | P.HP ---
Certification for Inpatient Patient admitted to: Inpatient With expected LOS: >2 Midnights Practitioner: I am a practitioner with admitting privileges, knowledge of patient current condition, hospital course, and medical plan of care. Services: Services provided to patient in accordance with Admission requirements found in Title 42 Section 412.3 of the Code of Federal Regulations Patient History Date of Service: 12/01/21 Reason for admission: WEAKNESS History of Present Illness: MICHAEL IS 86 YEARS OLD PATIENT WITH COPD, HAD ANEMIA OF 9 GM IN OCTOBER. I DID GUAIAC STOOL AND IT WAS POSITIVE. SHE SAW DR. MORGAN BUT WAITING FOR DR. MELCHOR'S APPROVAL FOR EGD AND COLONOSCOPY TOOK 3 WEEKS. DAUGHTER CALLED ME TO ADMIT HER. I ASKED HER TO GO TO ER IF SHE IS WORSE AND IF HG IS LOW WE CAN ADMIT HER. HER HG IS DOWN TO 6.9. ON CT SCAN THERE IS A LESION NEAR APPENDIX AND CECUM ABOUT3 CM. THIS CAN BE INFECTION OR MASS PER RADIOLOGIST. SHE DOES NOT HAVE MUCH PAIN IN ABDOMEN. Allergies diazepam [From Valium] Allergy (Verified 05/27/21 08:13) Hyperactive sulfamethoxazole [From Bactrim] Allergy (Verified 05/27/21 08:13) Hives trimethoprim [From Bactrim] Allergy (Verified 05/27/21 08:13) Hives Home Medications: Alprazolam [Xanax] 0.5 mg PO PRN PRN 07/18/20 Losartan Potassium [Cozaar] 100 mg PO DAILY 07/18/20 Metoprolol Succinate 50 mg PO DAILY 07/18/20 Mirtazapine [Remeron*] 1 tab PO BEDTIME 07/18/20 Pantoprazole [Protonix Tab*] 40 mg PO DAILY 07/18/20 Pravastatin Sodium 40 mg PO DAILY 07/18/20 Tizanidine [Zanaflex*] 1 tab PO BEDTIME 07/18/20 Aspirin [Aspirin EC 81 MG] 81 mg PO BEDTIME 05/26/21 Ferrous Sulfate [Feosol] 325 mg PO BEDTIME 05/26/21 Levothyroxine [Synthroid] 50 mcg PO [id number] 05/26/21 Loratadine [Claritin] 10 mg PO DAILY 05/26/21 - Past Medical/Surgical History Has patient received pneumonia vaccine in the past: Yes Diabetic: No -: emphysema -: arthritis -: hemorrhoids -: pacemaker -: stomach ulcers -: melanoma -: right finger amputation -: HTN -: HYpothyroid -: hernia repair -: thyroid removal -: tonsillectomy -: Pacemaker placement - Family History Mother -: Cancer Notes: Colon Cancer - Social History Smoking Status: Former smoker Alcohol use: No CD- Drugs: No Caffeine use: No Place of Residence: Home Review of Systems 10-point ROS is otherwise unremarkable General: Weakness Physical Examination - Vital Signs Temperature: 99 F Blood Pressure: 132/49 Pulse: 95 Respirations: 17 Pulse Ox (%): 99 - Physical Exam General: Alert, Mild distress HEENT: Atraumatic, PERRLA, Mucous membr. moist/pink, EOMI, Sclerae nonicteric Neck: Supple, 2+ carotid pulse no bruit, No LAD, Without JVD or thyroid abnormality Respiratory: Clear to auscultation bilaterally, Normal air movement Cardiovascular: Regular rate/rhythm, Normal S1 S2 Gastrointestinal: Normal bowel sounds, No tenderness, Tenderness (MILD DIFFUSE MORE ON R SIDE. NO REBOUND. ) Musculoskeletal: No tenderness Integumentary: No rashes Neurological: Normal gait, Normal speech, Normal strength at 5/5 x4 extr, Normal tone, Normal affect Lymphatics: No axilla or inguinal lymphadenopathy - Studies Laboratory Data (last 24 hrs) 12/01/21 09:30: PT 11.6, INR 1.05, APTT 27.8 12/01/21 09:30: Sodium 135 L, Potassium 4.1, BUN 23 H, Creatinine 1.00, Glucose 148 H, Total Bilirubin 0.2, AST 10 L, ALT 16, Alkaline Phosphatase 66, Lipase 379 12/01/21 09:30: WBC 10.8, Hgb 6.9 L*, Hct 21.9 L, Plt Count 394 Assessment and Plan - Problems (Diagnosis) (1) Severe anemia Current Visit: Yes Status: Acute Plan: AGREE WITH IV PROTONIX. EGD AND DR. OTERO CONSULTED FOR APPENDIX REGION LESION. I CALLED DR. MORGAN TO GET EGD DONEIN AM SO WE DO NOT HAVE EXCESSIVE DELAY. 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 IT IS NEAR APPENDIX. RADIOLOGIST SAYS IT MAY BE CONCEALED APPENDIX PERFORATION OR MASS. DR. OTERO MAY HAVE TO DO SURGERY. SHE IS COPD WITH CAD AND MODERATE TO HIGH RISK FOR SURGERY. - Advance Directives Does patient have a Living Will: Yes Does patient have a Durable POA for Healthcare: Yes
[2021-12-01] MEDS: METOCLOPRAMIDE 10 MG/2mL INJ IV SCH (22:18)
[2021-12-01] MEDS ORDERED: PANTOPRAZOLE INJ 80 MG in NA CHLORIDE 0.9% 250 ML IV SCH (23:00)
[2021-12-01] MEDS ORDERED: GOLYTELY 4000 ML PO SCH (23:00)
[2021-12-01] MEDS ORDERED: MAGNESIUM CITRATE 300 ML BOT PO SCH (23:00)
[2021-12-02] MEDS ORDERED: NA CHLORIDE 0.9% 250 ML ONE (00:25)
[2021-12-02] MEDS: PIPER TAZO 3.375 GM in NA CHLORIDE 0.9% 100 ML IV SCH ×3 (01:50→20:03)
[2021-12-02] MEDS: METOCLOPRAMIDE 10 MG/2mL INJ IV SCH ×2 (06:24→12:20)
[2021-12-02] MEDS: LEVOTHYROXINE SOD 0.05 MG TABLET PO SCH (06:24)
[2021-12-02 07:19] LABS: Absolute Lymphocytes (CBC) 1.2 K/uL (0.7-4.9); Hematocrit 24.6 % (36.0-45.0); MCV 82.4 fL (80-100); MPV 7.7 fL (7.6-11.3); RBC Red Blood Cell Count 2.99 M/uL (3.86-4.86)
[2021-12-02 07:28] LABS: Potassium 3.8 mmol/L (3.5-5.1)
[2021-12-02] MEDS ORDERED: Ringers Lactate 1,000 ML IV ONE (08:35)
[2021-12-02] MEDS ORDERED: propofoL 200 MG/20 ML VIAL IV ONE ×3 (10:25→11:07)
[2021-12-02] MEDS ORDERED: LIDOCAINE 1% MPF 5 ML VIAL ONE (10:26)
--- NOTE | 2021-12-02 10:49 | ENDO RPT ---
[address], [address] EGD PROCEDURE REPORT EXAM DATE: 12/02/2021 PATIENT NAME: Elsa Mckeon MR#: [id number] BIRTHDATE: 1935 ATTENDING: Fish [address] STATUS: inpatient - [facility] SIMULATION SOFTWARE ENGINEER: Kathryn Quintanlila RN and Fay White INDICATIONS: The patient is a 86 yr old Female here for an EGD due to anemia, melenic bleeding, mid epigastric abdominal pain, nausea, and chronic unexplained diarrhea PROCEDURE PERFORMED: EGD with biopsy MEDICATIONS: Per Anesthesia. TOPICAL ANESTHETIC: none CONSENT: The patient understands the risks and benefits of the procedure and understands that these risks include, but are not limited to: sedation, allergic reaction, infection, perforation and/or bleeding. Alternative means of evaluation and treatment include, among others: physical exam, x-rays, and/or surgical intervention. The patient elects to proceed with this endoscopic procedure. DESCRIPTION OF PROCEDURE: During intra-op preparation period all mechanical medical equipment was checked for proper function. Hand hygiene and appropriate measures for infection prevention was taken. Procedure, possible complications, and alternatives including but not limited to the possibility of bleeding, perforation, tear, infection, sepsis, need for surgery, need for blood transfusion, and anesthesia related complications were explained to the patient. After the risks, benefits and alternatives of the procedure were thoroughly explained, Informed consent was verified, confirmed and timeout was successfully executed by the treatment team. The patient was placed in the left lateral position. The patient was anesthetized with topical anesthesia. Through the anesthetized oropharyngeal area, the scope was passed without any difficulty. The EC-3890Li ([id number]), EC-[id number] ([id number]), and EG-[id number] ([id number]) endoscope was introduced through the mouth and advanced to the third portion of the duodenum. Retroflexed views revealed a small hiatal hernia. The gastroscope was then slowly withdrawn and removed. 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 Mild gastritis was found in the antrum. Multiple biopsies were obtained and sent to pathology. Multiple erosions were found in the antrum. 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 ADVERSE EVENTS: There were no complications. IMPRESSIONS: 1. 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 Mild gastritis in the antrum, s/p biopsies 4. Multiple (3) erosions were found in the antrum 5. 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 await biopsy results 2. acid suppression therapy 3. endoscopy unit with functional APC REPEAT EXAM: Return in 1 week(s) for EGD. Fish [address] eSigned: Fish Orte[address] Dr 12/02/2021 10:49 AM cc: Chato Werner CPT CODES: ICD9 CODES: PATIENT NAME: Elsa Mckeon MR#: [id number]
[2021-12-02] MEDS ORDERED: SIMETHICONE 40 MG/ 0.6 ML ONE (11:07)
--- NOTE | 2021-12-02 11:22 | ENDO RPT ---
[facility] [address] [facility], [address] COLONOSCOPY PROCEDURE REPORT EXAM DATE: 12/02/2021 PATIENT NAME: Elsa Mckeon MR #: [id number] BIRTHDATE: 1935 ATTENDING: Fish [address] STATUS: inpatient - 7 ASSOC[employer]ATE PRODUCT INTEGRITY ENGINEER: Kathryn Quintanilla RN and Fay White INDICATIONS: The patient is a 86 yr old Female here for a colonoscopy due to hematochezia, RLQ/LLQ abdominal pain, anemia, hgb 6.9, and abnormal CT of abdomen -> revealing possible cecal mass 3.7 cm PROCEDURE PERFORMED: Colonoscopy MEDICATIONS: Per Anesthesia. ESTIMATED BLOOD LOSS: None CONSENT: The patient understands the risks and benefits of the procedure and understands that these risks include, but are not limited to: sedation, allergic reaction, infection, perforation and/or bleeding. Alternative means of evaluation and treatment include, among others: physical exam, x-rays, and/or surgical intervention. The patient elects to proceed with this endoscopic procedure. DESCRIPTION OF PROCEDURE: During intra-op preparation period all mechanical medical equipment was checked for proper function. Hand hygiene and appropriate measures for infection prevention was taken. Procedure, possible complications, alternatives including, but not limited to possibility of bleeding, perforation, tear, infection, sepsis, need for surgery, need for blood transfusion, were explained to the patient. After the risks, benefits and alternatives of the procedure were thoroughly explained, Informed consent was verified, confirmed and timeout was successfully executed by the treatment team. The patient was placed in the left lateral position. A digital rectal exam was performed and revealed several skin tags. After appropriate level of anesthesia, the scope was passed. The EC-[id number] ([id number]) endoscope was introduced through the anus and advanced to the cecum, which was identified by both the appendix and ileocecal valve. The quality of the prep was fair. The instrument was then slowly withdrawn as the colon was fully examined. Scope withdrawal time was 7 minutes. COLON FINDINGS: No mass identified in the cecum. Mild diverticulosis was noted in the sigmoid colon. No bleeding was noted from the diverticulosis. Small internal hemorrhoids were found. Retroflexed views revealed small hemorrhoids. The scope was then completely withdrawn from the patient and the procedure terminated. ADVERSE EVENTS: There were no complications. IMPRESSIONS: 1. No mass in the cecum 2. Mild diverticulosis in the sigmoid colon 2. Small internal hemorrhoids 3. Intubation to cecum RECOMMENDATIONS: surgery for evaluation of extraluminal RLQ 3.7 cm mass (noted on CT abdomen/pelvis) RECALL: None scheduled due to age 86 y[address] eSigned: Fish [address] Dr 12/02/2021 11:22 AM cc: Chato Werner CPT CODES: ICD9 CODES: PATIENT NAME: Elsa Mckeon MR#: [id number]
[2021-12-02] MEDS: D5.45NS W/KCL 20MEQ 1,000 ML IV SCH (12:18)
[2021-12-02] MEDS: PANTOPRAZOLE INJ 80 MG in NA CHLORIDE 0.9% 250 ML IV SCH (12:19)
[2021-12-02] MEDS: ATORVASTATIN 10 MG TAB PO SCH (12:21)
[2021-12-02] MEDS: LORATADINE 10 MG TAB PO SCH (12:21)
[2021-12-02] MEDS: METOPROLOL XL 50 MG TAB PO SCH (12:21)
[2021-12-02] MEDS: LOSARTAN POTASSIUM 50 MG TABLET PO SCH (12:22)
--- NOTE | 2021-12-02 12:52 | CON ---
Date of Consultation: 12/02/2021 Reason For Service: Intraabdominal mass. History Of Present Illness: This is the case of a female, who comes with history of guaiac positive and also anemia. Workup has been done. She is due for EGD and colonoscopy. They have been working for the last 3 weeks, trying to get her cardiac stable enough and clearance to proceed, but they have not done that yet. Now, she comes once again referred by the primary doctor, admitted to the [facility] and a workup has been done at this moment. She has chronic diarrhea. No dysuria, hematuria, mirian tochezia recently. The patient is not in distress at this moment. She has history of GI bleed in th e past with gastric ulcers and perforation. Allergies: VALIUM AND BACTRIM. Past Medical History: Hyperlipidemia, hypertension, hypothyroidism, stroke, also peptic ulcer diseas e. Past Surgical History: Includes pacemaker. Social History: She does not smoke at this moment. She does not drink alcohol. Family History: Noncontributory. Physical Examination: General: The patient is awake, alert. HEENT: Pupils are equal and reactive, anicteric. Neck: Supple. Chest: Clear. Abdomen: Soft and depressible. No guarding or rebound. No peritoneal signs. No tenderness at this moment. Extremities: Good capillary refill. Rectal: Deferred. Laboratory Data: CAT scan of the abdomen and pelvis interpreted by Dr. Jacobson as irregularly margin ated 3.7 cm low-density mass in the right lower quadrant in proximity to the tip of the cecum. Absce ss versus mass cannot be ruled out. Blood work shows a hemoglobin of 6.9, now 8.4 at this moment. W BC count of 11.8. INR is 1.05. Potassium 3.8. Assessment: This is an 86-year-old patient with anemia of unknown origin, now we have this mass on t he right lower quadrant, etiology of that is unknown. She is getting workup done to rule out a malig neeta as a source of that. If this is a malignancy, then she may need surgical intervention in that area. We are waiting for the GI evaluation to trying to get an idea where we are heading. From the surgical standpoint, we are going to keep her n.p.o. and checked H and H. HM/MODL Voice ID: [id number] Report ID: [id number]
[2021-12-02] MEDS: ACETAMINOPHEN 325 MG TABLET PO PRN (15:29)
--- NOTE | 2021-12-02 17:44 | P.PN ---
Subjective Date of Service: 12/02/21 Chief Complaint: WEAKNESS Subjective: Improving SHE GOT PACKED RBCS. I CALLED DR. MORGAN TO GET HER ON SCHEDULE FOR TODAY. AFTER SCOPE SHE HAD FEVER. NURSE CALLED. SHE IS ALREADY ON ZOSYN. SHE MAY HAVE ASPIRATION AT TIMES. Physical Examination - Vital Signs Temperature: 101.8 F Blood Pressure: 163/74 Pulse: 101 Respirations: 16 Pulse Ox (%): 96 - Physical Exam General: Oriented x3, Mild distress HEENT: Atraumatic, PERRLA, EOMI Neck: Supple, JVD not distended Respiratory: Clear to auscultation bilaterally, Normal air movement Cardiovascular: Regular rate/rhythm, Normal S1 S2 Gastrointestinal: Normal bowel sounds, No tenderness Musculoskeletal: No tenderness Integumentary: No rashes Neurological: Normal speech, Normal tone, Normal affect Lymphatics: No axilla or inguinal lymphadenopathy - Studies Medications List Reviewed: Yes Assessment And Plan - Current Problems (Diagnosis) (1) Severe anemia Current Visit: Yes Status: Acute Plan: AGREE WITH IV PROTONIX. EGD AND DR. OTERO CONSULTED FOR APPENDIX REGION LESION. I CALLED DR. MORGAN TO GET EGD DONEIN AM SO WE DO NOT HAVE EXCESSIVE DELAY. EGD A V MALFORMATION. COLONOSCOPY NEGATIVE. 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 IT IS NEAR APPENDIX. RADIOLOGIST SAYS IT MAY BE CONCEALED APPENDIX PERFORATION OR MASS. DR. OTERO MAY HAVE TO DO SURGERY. SHE IS COPD WITH CAD AND MODERATE TO HIGH RISK FOR SURGERY. DR. OTERO ON CASE. COLONOSCOPY NEG. GIVE ABX SOME TIME AND DO CT AGAIN.
[2021-12-02] MEDS: ONDANSETRON 4 MG/2 ML VIAL IV PRN (20:54)
[2021-12-02] MEDS ORDERED: TIZANIDINE 4 MG TABLET PO SCH (21:00)
[2021-12-02] MEDS ORDERED: MIRTAZAPINE 15 MG TAB PO SCH (21:00)
[2021-12-02] MEDS ORDERED: FERROUS SULFATE 325 MG TAB PO SCH (21:00)
[2021-12-03] MEDS: D5.45NS W/KCL 20MEQ 1,000 ML IV SCH (01:27)
[2021-12-03] MEDS: PANTOPRAZOLE INJ 80 MG in NA CHLORIDE 0.9% 250 ML IV SCH (01:28)
[2021-12-03] MEDS: PIPER TAZO 3.375 GM in NA CHLORIDE 0.9% 100 ML IV SCH ×2 (01:34→10:33)
[2021-12-03] MEDS: ACETAMINOPHEN 325 MG TABLET PO PRN ×2 (03:11→12:46)
--- NOTE | 2021-12-03 06:30 | EKG ---
Test Date: 2021-12-02 Test Time: 08:21:59 Compounding Scaler: ANUPAMA MEASUREMENT RESULTS: Intervals: Rate: 92 MA: 172 QRSD: 202 QT: 460 QTc: 568 [place]: P: 79 MA: 172 QRS: -61 T: 100 INTERPRETIVE STATEMENTS: Electronic ventricular pacemaker Compared to ECG 05/26/2021 15:36:39 No significant changes Electronically Signed On 12-03-21 06:27:46 CDT by Colton Mathew
[2021-12-03] MEDS: LEVOTHYROXINE SOD 0.05 MG TABLET PO SCH (07:40)
[2021-12-03 10:13] LABS: Absolute Lymphocytes (CBC) 1.4 K/uL (0.7-4.9); Hematocrit 26.7 % (36.0-45.0); Lymphocytes % 10.4 % (15.3-44.8); MPV 8.1 fL (7.6-11.3); RBC Red Blood Cell Count 3.18 M/uL (3.86-4.86)
[2021-12-03 10:29] LABS: Potassium 4.2 mmol/L (3.5-5.1)
[2021-12-03] MEDS: METOPROLOL XL 50 MG TAB PO SCH (10:32)
[2021-12-03] MEDS: LORATADINE 10 MG TAB PO SCH (10:32)
[2021-12-03] MEDS: ATORVASTATIN 10 MG TAB PO SCH (10:32)
[2021-12-03] MEDS: LOSARTAN POTASSIUM 50 MG TABLET PO SCH (10:32)
[2021-12-03 12:19] VITALS: BP 182/77
[2021-12-03 12:47] VITALS: TEMP 99.1
[2021-12-03 21:02] VITALS: O2SAT 98
--- NOTE | 2021-12-03 22:25 | P.DS ---
Admission Date: 12/01/21 Discharge Date: 12/03/21 Disposition: ROUTINE DISCHARGE Reason for Admission: WEAKNESS - Problems (1) Severe anemia Status: Acute (2) Fibrotic lung diseases Status: Chronic (3) Lesion of colon Status: Acute Brief History of Present Illness: MICHAEL IS 86 YEARS OLD PATIENT WITH COPD, HAD ANEMIA OF 9 GM IN OCTOBER. I DID GUAIAC STOOL AND IT WAS POSITIVE. SHE SAW DR. MORGAN BUT WAITING FOR DR. MELCHOR'S APPROVAL FOR EGD AND COLONOSCOPY TOOK 3 WEEKS. DAUGHTER CALLED ME TO ADMIT HER. I ASKED HER TO GO TO ER IF SHE IS WORSE AND IF HG IS LOW WE CAN ADMIT HER. HER HG IS DOWN TO 6.9. ON CT SCAN THERE IS A LESION NEAR APPENDIX AND CECUM ABOUT3 CM. THIS CAN BE INFECTION OR MASS PER RADIOLOGIST. SHE DOES NOT HAVE MUCH PAIN IN ABDOMEN. Hospital Course: MS WATT HAS SEVERE ANEMIA, SHE GOT TWO UNITS OF PACKED RBCS. HAD EGD THAT SHOWED ANGIODYSPLASIAS AND COLONOSCOPY WAS NEGATIVE. SHE IS STABLE TO GO HOME ON ABX. SHE WILL FU WITH DR. OTERO TO CHECK ON APPENDICULAR REGION LESION THAT IS ASYMPTOMATIC. SHE NEVER HAD ANY PAIN HERE AND MAY BE SHE WAS SLIGHTLY TENDER. THIS CAN BE A MASS BUT AGAIN SHEIS 86 WITH COMORBIDITIES AND HAS HIGH RISK OF SURGERY. DR. OTERO WILL DECIDE FURTHER WITH HER AFTER A FOLLOW UP CT SCAN. Vital Signs/Physical Exam: Temp Pulse Resp BP Pulse Ox 99.1 F 95 H 18 182/77 H 98 12/03/21 12:46 12/03/21 12:00 12/03/21 12:00 12/03/21 12:00 12/03/21 12:00 Laboratory Data at Discharge: WBC 13.8 K/uL (4.3-10.9) H D 12/03/21 09:57 Hgb 8.4 g/dL (12.0-15.0) L 12/03/21 09:57 Hct 26.7 % (36.0-45.0) L 12/03/21 09:57 Plt Count 299 K/uL (152-406) 12/03/21 09:57 PT 11.6 SECONDS (9.5-12.5) 12/01/21 09:30 INR 1.05 12/01/21 09:30 APTT 27.8 SECONDS (24.3-36.9) 12/01/21 09:30 Sodium 139 mmol/L (136-145) 12/03/21 09:57 Potassium 4.2 mmol/L (3.5-5.1) 12/03/21 09:57 BUN 6 mg/dL (7-18) L 12/03/21 09:57 Creatinine 0.87 mg/dL (0.55-1.3) 12/03/21 09:57 Glucose 109 mg/dL (74-106) H 12/03/21 09:57 Total Bilirubin 0.2 mg/dL (0.2-1.0) 12/01/21 09:30 AST 10 U/L (15-37) L 12/01/21 09:30 ALT 16 U/L (12-78) 12/01/21 09:30 Alkaline Phosphatase 66 U/L (45-117) 12/01/21 09:30 Lipase 379 U/L (73-393) 12/01/21 09:30 Home Medications: Alprazolam [Xanax] 0.5 mg PO PRN PRN 07/18/20 Losartan Potassium [Cozaar] 100 mg PO DAILY 07/18/20 Metoprolol Succinate 50 mg PO DAILY 07/18/20 Mirtazapine [Remeron*] 1 tab PO BEDTIME 07/18/20 Pantoprazole [Protonix Tab*] 40 mg PO DAILY 07/18/20 Pravastatin Sodium 40 mg PO DAILY 07/18/20 Tizanidine [Zanaflex*] 1 tab PO BEDTIME 07/18/20 Aspirin [Aspirin EC 81 MG] 81 mg PO BEDTIME 05/26/21 Ferrous Sulfate [Feosol] 325 mg PO BEDTIME 05/26/21 Levothyroxine [Synthroid] 50 mcg PO [id number] 05/26/21 Loratadine [Claritin] 10 mg PO DAILY 05/26/21 Ciprofloxacin HCl [Cipro] 250 mg PO BID 10 Days #20 tablet 12/03/21 metroNIDAZOLE [Flagyl] 500 mg PO Q8H 10 Days #30 tablet 12/03/21 New Medications: Ciprofloxacin HCl [Cipro] 250 mg PO BID 10 Days #20 tablet metroNIDAZOLE [Flagyl] 500 mg PO Q8H 10 Days #30 tablet Followup: Chato Werner MD [Primary Care Provider] - 1-2 Weeks (call to schedule an appointment ) To Otero MD [ACTIVE - CAN ADMIT] - 1-2 Weeks (call to schedule an a ppointment) Fish Morgan MD [ASSOCIATE-ACTIVE - CAN ADMIT] - 1-2 Weeks (call to schedule an appointment to follow up on need for another EGD.)
[2021-12-04] MEDS ORDERED: PANTOPRAZOLE 40MG TABLET PO SCH (06:30)
== END 2021-12-03 16:29 | disposition home or self-care (01) | DRG 378 ==
LOC: ER 09:07 → ERHOLD 12:53 → 2ND 16:02
PROVIDERS: ADMIT Internal Medicine; ATTEND Internal Medicine
PROC: 30233N1 Transfusion of Nonautologous Red Blood Cells into Peripheral Vein, Percutaneous Approach (ICD-10-PCS; 2021-12-02)
PROC: 0DB68ZX Excision of Stomach, Via Natural or Artificial Opening Endoscopic, Diagnostic (ICD-10-PCS; principal; 2021-12-02 09:45)
PROC: 0DJD8ZZ Inspection of Lower Intestinal Tract, Via Natural or Artificial Opening Endoscopic (ICD-10-PCS; 2021-12-02 09:45)
DX: K31.811 Angiodysplasia of stomach and duodenum with bleeding (principal); D62 Acute posthemorrhagic anemia; K25.4 Chronic or unspecified gastric ulcer with hemorrhage; K29.71 Gastritis, unspecified, with bleeding; J44.9 Chronic obstructive pulmonary disease, unspecified; J84.10 Pulmonary fibrosis, unspecified; K63.9 Disease of intestine, unspecified; I25.10 Atherosclerotic heart disease of native coronary artery without angina pectoris; E78.5 Hyperlipidemia, unspecified; I10 Essential (primary) hypertension; K64.8 Other hemorrhoids; E03.9 Hypothyroidism, unspecified; K57.30 Diverticulosis of large intestine without perforation or abscess without bleeding; Q27.39 Arteriovenous malformation, other site; K44.9 Diaphragmatic hernia without obstruction or gangrene; Z95.0 Presence of cardiac pacemaker; Z86.73 Personal history of transient ischemic attack (TIA), and cerebral infarction without residual deficits; Z20.822 Contact with and (suspected) exposure to COVID-19
CPT/HCPCS: 36415; 74177; 80048; 80053; 83690; 85025; 85610; 85730; 86850; 86900; 86901; 88305; 88312; 93005; 99285; C9113; J2270; J2405; J2543; J2704; J2765; J7050; J7120; J7799; P9016; Q9967; U0003

== ENCOUNTER 2024-02-29 10:19 | Inpatient (IN) | payer OTHER ==
--- OUTSIDE RECORDS SUMMARY | 2024-02-29 10:23 | XMS REPORT | Clinical Summary ---
Author Name Unknown Organization [facility] [place] Address [address] [place] [address] Care Team Providers Care Grease Packer Name Role Phone Sudheer Benson MD Unavailable [phone] Sharad Uriostegui MD Primary Care Provider [email or web address] Leobardo Ovalle MD Unavailable [phone] King Mccoy MD Unavailable Allergies Active Allergy Reactions Criticality Noted Date Comments Sulfamethoxazole-Trimethop rim Rash Low 10/28/2016 Diazepam Other (See Comments) 10/28/2016 Hyperactivty Medications Medication Sig Dispensed Refills Start Date End Date Status citalopram (CeleXA) 40 mg tablet Take 1 tablet by mouth daily. 10/04/2016 Active amLODIPine (NORVASC) 2.5 mg tablet Take 1 tablet by mouth daily. 10/04/2016 Active losartan (COZAAR) 100 mg tablet Take 1 tablet by mouth daily. Reported on 11/04/2016 08/09/2016 Active metoprolol succinate (TOPROL XL) 50 mg 24 hr tablet Take 1 tablet by mouth at bedtime. 09/24/2016 Active pantoprazole (PROTONIX) 40 mg EC tablet Take 1 tablet by mouth daily. 09/29/2016 Active pravastatin (PRAVACHOL) 40 mg tablet Take 1 tablet by mouth daily. Reported on 11/04/2016 10/11/2016 Active thyroid (ARMOUR THYROID) 30 mg tab tablet Take 30 mg by mouth daily. Active cholecalciferol, vitamin D3, 1,000 units tablet Take 1,000 Units by mouth daily. Reported on 11/04/2016 Active VIT A/VIT C/VIT E/ZINC/COPPER (PRESERVISION AREDS ORAL) Take 1 tablet by mouth daily. Reported on 11/04/2016 Active loratadine (CLARITIN) 10 mg tablet Take 10 mg by mouth as needed for allergies. Reported on 12/16/2016 Active mirtazapine (REMERON) 15 mg tablet Take 15 mg by mouth daily as needed for sleep. Reported on 12/16/2016 1 07/02/2016 Active ALPRAZolam (XANAX) 0.5 mg tablet Take 0.5 mg by mouth daily as needed for anxiety. Reported on 11/04/2016 11/01/2016 Active fluticasone (FLONASE) 50 mcg/spray nasal spray Inhale 2 sprays into each nostril daily. 2 10/11/2016 Active CLOPIDOGREL BISULFATE (PLAVIX ORAL) Take 1 tablet by mouth daily. 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) Sick sinus syndrome Overview: permanent pacemaker Hypothyroidism Hypertension Hyperlipidemia Gastroesophageal reflux disease Basal cell carcinoma of other specified sites of skin Allergic rhinitis Presence of cardiac pacemaker Surgical History Surgery Date Site/Laterality Comments CARDIAC PACEMAKER PLACEMENT 09/01/2011 FINGER AMPUTATION 11/26/2015 - 12/25/2015 right 5th digit EGD 09/25/2016 - 10/24/2016 CATARACT EXTRACTION, BILATERAL IL EXCISION MALIGNANT LESION F/E/E/N/L 0.5 CM/< 11/08/2016 Right Procedure: EXCISION OF MALIGNANT LESION OF NOSE; Surgeon: Sharad Uriostegui MD; Location: MAIN OR; Service: HN - HEAD & NECK SURGERY IL EXC LESION EYELID W/O CLSR/W/SIMPLE DIR CLOSURE 11/08/2016 Right Procedure: EXCISION OF LESION OF CHEEK; Surgeon: Sharad Uriostegui MD; Location: MAIN OR; Service: HN - HEAD & NECK SURGERY IL ADJT TIS TRNS/REARGMT F/C/C/M/N/A/G/H/F 10SQCM/< 11/12/2016 Right Procedure: REARRANGEMENT OF ADJACENT TISSUE FOR REPAIR OF DEFECT OF NOSE; Surgeon: Leobardo Ovalle MD; Location: [facility]; Service: PLS - PLASTIC SURGERY IL FLAP ISLAND PEDICLE ANATOMIC NAMED AXIAL ARTERY 11/12/2016 Nose/Right Procedure: FORMATION OF ISLAND PEDICLE FLAP GRAFT; Surgeon: Leobardo Ovalle MD; Location: [facility]; Service: PLS - PLASTIC SURGERY IL REMV TISSUE FOR GRAFT OTHR 11/12/2016 Nose/Right Procedure: EAR CARTILAGE GRAFT AND FULL THICKNESS SKIN GRAFT ; Surgeon: Leobardo Ovalle MD; Location: [facility]; Service: PLS - PLASTIC SURGERY THYROIDECTOMY, PARTIAL TONSILLECTOMY HERNIA REPAIR x's 2 right groin OTHER SURGICAL HISTORY ruptured ulcer IL DELAY FLAP/SCTJ FLAP EYELIDS NOSE EARS/LIPS 12/17/2016 Face/Right Procedure: DIVISION OF NASAL FLAP; Surgeon: Leobardo Ovalle MD; Location: [facility]; Service: PLS - PLASTIC SURGERY Medical History Medical History Date Comments Hypothyroidism Allergic rhinitis Sick sinus syndrome 08/2011 pt denies sy ncope. sp pacemaker. Hypertension 2011 pt does not chec k BP at home. 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 pt was started on Plavix Deep vein thrombosis of righ t lower extremity 2006 questionable dx. pt reports that she had a "blood clot in the vein" of her right leg that caused edema. pt reports that she does not recall being treated on anticoagulation. Chronic obstructive pulmonary disease pt does not use MDI or nebulizers Family History Medical History Relation Name Comments Hypertension Maternal Grandfather Hypertension Maternal Grandmother Stroke Maternal Grandmother of stroke at 82 Hypertension Mother Diabetes Paternal Aunt Hypertension Paternal Grandfather Heart disease Paternal Grandmother "heart disease" Hypertension Paternal Grandmother Stroke Paternal Grandmother of stroke at 87 -Melanoma Neg Hx Coronary heart disease (CHD) Neg Hx Venous thrombosis Neg Hx Relation Name Status Comments Maternal Grandfather Maternal Grandmother Mother Paternal Aunt Paternal Grandfather Paternal Grandmother Social History Tobacco Use Types Packs/Day Years Used Date Smoking Tobacco: Former Cigarettes 1.3 40 1 957 - 1996 Smokeless Tobacco: Never Comments:1-1.5 ppd Alcohol Use Standard Drinks/Week Comments Yes 0 (1 standard drink = 0.6 oz pur e alcohol) socially Sex and Gender Information Value Date Recorded Sex Assigned at Not on file Gender Identity Not on file Sexual Orientation Not on file Obstetrics History Plan of Treatment Health Maintenance Due Date Last Done Comments Pneumococcal Vaccine: 65+ Years (1 of 1 - PCV) 000 COVID-19 Vaccine (2022- season) 2024 Retired Influenza Vaccine 02/26/2024 Medical Devices Implanted Type Area Field Supervisor Seed Production Device Identifier Shelf Expiration Date Model / Serial / Lot [employer] Pacemaker Advance Directives * Full Code (Latest Code Status on File) Date Activated Date Inactivated Comments 12/17/2016 7:14 AM 12/17/2016 12:24 PM * Full Code Date Activated Date Inactivated Comments 11/12/2016 1:43 PM 11/12/2016 8:42 PM Care Teams Grease Packer Relationship Specialty Start Date End Date Sudheer Benson MD [address] [place] [place] [address] PCP - External Referring 10/21/16 Sharad Uriostegui MD [address] [place] [address] [place] [address] [email or web address] PCP - General Head and Neck Surgery 10/22/16 Leobardo Ovalle MD [address] [place] [email or web address] [email or web address] Physician Plastic and Reconstructive Surgery 11/04/16 King Mccoy MD [address] [place] [phone] [email or web address] Consulting Physician Internal Medicine 11/02/16
[2024-02-29 10:58] LABS: Absolute Eosinophils 0.1 K/uL (0-0.5); Absolute Lymphocytes (CBC) 0.6 K/uL (0.7-4.9); Absolute Monocytes 0.6 K/uL (0.1-1.3); Basophils % 0.3 % (0-1.3); Eosinophils % 0.4 % (0-4.4); Hematocrit 31.7 % (36.0-45.0); Hemoglobin 10.3 g/dL (12.0-15.0); Lymphocytes % 3.8 % (15.3-44.8); MCH 28.4 pg (27.0-35.0); MCHC 32.5 g/dL (32.0-36.0); MCV 87.3 fL (80-100); MPV 8.5 fL (7.6-11.3); Monocytes % 3.8 % (3.3-12.3); Neutrophils % 91.7 % (41.7-73.7); Platelets 254 thou/uL (152-406); RBC Red Blood Cell Count 3.63 M/uL (3.86-4.86); Red Cell Distribution Width 15.2 % (12.1-15.2)
[2024-02-29 11:08] LABS: SARS-CoV-2 Antigen CONTROL BLUE LINE VIS/BG OK; SARS-CoV-2 Antigen Rapid Res Negative (Negative)
[2024-02-29] MEDS ORDERED: LORazepam 2 MG/ML VIAL ONE (11:11)
[2024-02-29 11:14] LABS: Albumin 3.8 g/dL (3.4-5.0); Albumin/Globulin Ratio 1.3 (1.1-1.8); Anion Gap 13.6 mEq/L (5.0-15.0); Bilirubin Total 0.5 mg/dL (0.2-1.0); Magnesium 1.9 mg/dL (1.6-2.4); Potassium 3.6 mEq/L (3.5-5.1); Protein, Total 6.8 g/dL (6.4-8.2)
[2024-02-29 11:16] LABS: Troponin High Sensitivity 496.9 pg/mL (<58.9)
[2024-02-29] MEDS ORDERED: ASPIRIN 81 MG CHEWABLE TABLET ONE (11:56)
[2024-02-29] MEDS ORDERED: FUROSEMIDE 40 MG/4 ML VIAL ONE (11:57)
--- NOTE | 2024-02-29 12:05 | EDPHYS ---
Physician Documentation [facility] Name: Elsa Mckeon Age: 89 yrs Sex: Female : 1935 Arrival Date: 02/29/2024 Time: 10:19 Bed 6 Private MD: ED Physician Edel Wyman HPI: 02/28 10:33 This 89 yrs old Female presents to ER via Wheelchair with complaints of Shortness Of sd2 Breath, Anxiety. 10:33 89 yo F presents with CC of SOB and anxiety. Reports SOB ongoing for the past few weeks sd2 that she has been seeing her doctors for and anxiety since last night which she is on medication for. Reports she was at the lab today to have blood work drawn and urine testing and had to urinate very badly and they would not call her back to give her sample which made her have a panic attack causing her to come to the ER. Reports SOB and difficulty talking. No CP, fevers but reports a small cough and has been on steroids to help stimulate her appetite.. Historical: - Allergies: 10:33 Bactrim; kc6 10:33 Valium; kc6 - PMHx: 10:33 GI Bleed; Hyperlipidemia; Hypertension; Hypothyroidism; stroke-like episode; Anxiety; kc6 Congestive heart failure; Chronic obstructive lung disease; - PSHx: 10:33 pacemaker; kc6 - Immunization history:: Adult Immunizations up to date. - Infectious Disease History:: Denies. - Social history:: Smoking status: Patient/guardian denies using tobacco, but has a distant history of tobacco abuse, Smoking status: . ROS: 10:33 Constitutional: Negative for fever, chills, and weight loss, Eyes: Negative for injury, sd2 pain, redness, and discharge, Cardiovascular: Negative for chest pain, palpitations, and edema, 10:33 Abdomen/GI: Negative for abdominal pain, nausea, vomiting, diarrhea. MS/Extremity: Negative for injury and deformity, Skin: Negative for injury, rash, and discoloration, Neuro: Negative for headache, numbness and tingling. 10:33 Respiratory: Positive for cough, shortness of breath, Negative for wheezing, 10:33 Psych: Positive for anxiety, Negative for depression, suicidal ideation, Exam: 10:33 Constitutional: This is a well developed, well nourished patient who is awake, alert, sd2 and in no acute distress. Head/Face: Normocephalic, atraumatic. Eyes: EOMI, normal conjunctiva bilaterally Chest/axilla: Normal chest wall appearance and motion. Nontender with no deformity. Cardiovascular: Tachycardic rate and regular rhythm with a normal S1 and S2. No gallops, murmurs, or rubs. 2+ distal pulses. Respiratory: Lungs have equal breath sounds bilaterally, clear to auscultation and percussion. No rales, rhonchi or wheezes noted. No increased work of breathing, no retractions or nasal flaring. Abdomen/GI: Soft, non-tender, with normal bowel sounds. No guarding or rebound. No evidence of tenderness throughout. Skin: Warm, dry with normal turgor. Normal color with no rashes, no lesions, and no evidence of cellulitis. MS/ Extremity: Pulses equal, no cyanosis. Neurovascular intact. Full, normal range of motion. Psych: Awake, alert, with orientation to person, place and time. Behavior, mood, and affect are within normal limits. 13:37 ECG was reviewed by the Attending Physician. Ventricular paced rhythm, rate 110, no sd2 STEMI or Sgarbossa criteria Vital Signs: 10:32 BP 118 / 92; Pulse 118; Resp 25 S; Temp 98.4(O); Pulse Ox 98% on R/A; Weight 69.85 kg kc6 (M); Height 5 ft. 1 in. (R); 11:15 BP 140 / 70; Pulse 105; Resp 19; Pulse Ox 98% ; dd2 13:00 BP 156 / 81; Pulse 91; Resp 17; Pulse Ox 100% ; dd2 14:30 BP 146 / 75; Pulse 89; Resp 18; Pulse Ox 99% ; dd2 16:00 BP 140 / 69; Pulse 91; Resp 16; Pulse Ox 97% ; dd2 10:32 Body Mass Index 29.10 (69.85 kg, 154.94 cm) kc6 MDM: 10:24 Patient medically screened. sd2 10:33 Differential diagnosis: anxiety attack, ACS, CHF, COPD, PNA, URI among others. Data sd2 reviewed: vital signs, nurses notes, lab test result(s), EKG, radiologic studies. Historians other than the Patient: Daughter/Son: Daughter at reports HPI. Care significantly affected by the following chronic conditions: Hypertension, Congestive Heart Failure, Chronic Obstructive Pulmonary Disease. 12:04 Counseling: I had a detailed discussion with the patient and/or guardian regarding the sd2 historical points, exam findings, and any diagnostic results supporting the discharge/admit diagnosis, lab results, radiology results, the need for further work-up and treatment in the hospital. ED course: Discussed case with Dr. Werner, patient's PCP, who will admit the patient to the hospital. Requests Lasix 40 mg BID, potassium supplementation and Lovenox 40 mg daily as well. Will place orders and admit at this time.. 02/28 10:33 Order name: CBC with Diff; Complete Time: 16:34 sd2 02/28 10:33 Order name: CMP; Complete Time: 11:16 sd2 02/28 10:33 Order name: Magnesium; Complete Time: 11:16 sd2 02/28 10:33 Order name: Troponin High Sensitivity; Complete Time: 11:16 sd2 02/28 10:33 Order name: BNP; Complete Time: 11:16 sd2 02/28 10:33 Order name: SARS RAPID; Complete Time: 11:16 sd2 02/28 12:12 Order name: Basic Metabolic Panel EDMS 02/28 12:12 Order name: Basic Metabolic Panel EDMS 02/28 12:12 Order name: CBC with Automated Diff EDMS 02/28 12:12 Order name: CBC with Automated Diff EDMS 02/28 13:19 Order name: CBC Smear Scan; Complete Time: 16:34 EDMS 02/28 10:33 Order name: XRAY Chest (1 view); Complete Time: 16:34 sd2 02/28 17:02 Order name: CT; Complete Time: 19:39 EDMS 02/28 12:12 Order name: CONS Physician Consult EDMS 02/28 12:12 Order name: EKG Electrocardiogram EDMS 02/28 12:12 Order name: EKG Electrocardiogram EDMS 02/28 10:33 Order name: EKG - Nurse/Tech; Complete Time: 10:48 sd2 Administered Medications: 11:06 CANCELLED (Physician Discretion): ondansetron 4 mg IVP once; over 2 minutes sd2 11:13 Drug: Ativan IVP 0.5 mg IVP once Route: IVP; Site: left antecubital; dd2 11:28 Follow up: Response: No adverse reaction dd2 11:45 Drug: Aspirin PO Chewable Tablet 324 mg PO once; 81 mg tablets x 4 Route: PO; dd2 12:15 Follow up: Response: No adverse reaction dd2 11:45 Drug: Furosemide IVP 60 mg IVP once; give over 2 minutes Route: IVP; Site: left dd2 antecubital; 12:00 Follow up: Response: No adverse reaction dd2 Disposition Summary: 02/29/24 12:05 Hospitalization Ordered Notes: Hospitalization Status: Inpatient Admission sd2 Provider: Chato Werner sd2 Location: Telemetry/MedSurg (Inpatient) sd2 Condition: Stable sd2 Problem: an acute exacerbation sd2 Symptoms: have improved sd2 Bed/Room Type: Standard az2 Room Assignment: 203(02/29/24 16:24) ty Diagnosis - CHF Exacerbation sd2 - Elevated Troponin sd2 - Anxiety sd2 Forms: - Medication Reconciliation Form sd2 - SBAR form sd2 - Leadership Thank You Letter sd2 Signatures: Dispatcher [employer] EDMS Edel Wyman MD MD sd2 Shaina Mcfarland RN RN [id number] Bruno Munroe DIANA, RN RN dd2 Corrections: (The following items were deleted from the chart) 10:34 10:34 CBC+H.LAB.BRZ ordered. EDMS EDMS 10:34 10:34 COMPREHENSIVE METABOLIC PANEL+C.LAB.BRZ ordered. EDMS EDMS 10:34 10:34 MAGNESIUM+C.LAB.BRZ ordered. EDMS EDMS 10:34 10:34 Troponin High Sensitivity+C.LAB.BRZ ordered. EDMS EDMS 10:34 10:34 PROBNP+C.LAB.BRZ ordered. EDMS EDMS 10:34 10:34 SARS-COV-2 Antigen Rapid+I.LAB.BRZ ordered. EDMS EDMS 11:06 11:01 Ondansetron IVP 4 mg IVP once; over 2 minutes ordered. sd2 sd2 16:24 12:05 sd2 ty
--- NOTE | 2024-02-29 12:05 | ER ---
Nurse's Notes [facility] Name: Elsa Mckeon Age: 89 yrs Sex: Female : 1935 Arrival Date: 02/29/2024 Time: 10:19 Bed 6 Private MD: Diagnosis: CHF Exacerbation;Elevated Troponin;Anxiety Presentation: 02/28 10:32 Chief complaint: Patient's son or daughter states: anxiety since yesterday with SOB kc6 today. pt states she took her antianxiety medication this AM but can't remember the name of it. Coronavirus screen: At this time, the client does not indicate any symptoms associated with coronavirus-19. Ebola Screen: No symptoms or risks identified at this time. Initial Sepsis Screen: Does the patient meet any 2 criteria? RR > 20 per min. HR > 90 bpm. Does the patient have a suspected source of infection? No. Patient's initial sepsis screen is negative. Risk Assessment: Do you want to hurt yourself or someone else? Patient reports no desire to harm self or others. Onset of symptoms was February 28, 2024. 10:32 Method Of Arrival: Wheelchair kc6 10:32 Acuity: TATIANA 2 kc6 Triage Assessment: 10:33 General: Appears in no apparent distress. uncomfortable, well groomed, well developed, kc6 Behavior is anxious, restless. Pain: Denies pain. Respiratory: Reports shortness of breath at rest on exertion Airway is patent Trachea midline Respiratory effort is even, labored, with nasal flaring, pursed lip, using tripod position, Respiratory pattern is symmetrical, tachypnea Breath sounds with wheezes bilaterally. Onset: The symptoms/episode began/occurred this morning, the patient has moderate shortness of breath. Historical: - Allergies: 10:33 Bactrim; kc6 10:33 Valium; kc6 - PMHx: 10:33 GI Bleed; Hyperlipidemia; Hypertension; Hypothyroidism; stroke-like episode; Anxiety; kc6 Congestive heart failure; Chronic obstructive lung disease; - PSHx: 10:33 pacemaker; kc6 - Immunization history:: Adult Immunizations up to date. - Infectious Disease History:: Denies. - Social history:: Smoking status: Patient/guardian denies using tobacco, but has a distant history of tobacco abuse, Smoking status: . Screenin:15 [facility] ED Fall Risk Assessment (Adult) History of falling in the last 3 months, dd2 including since admission No falls in past 3 months (0 pts) Confusion or Disorientation No (0 pts) Intoxicated or Sedated No (0 pts) Impaired Gait Yes (1 pt) Mobility Assist Device Used No (0 pt) Altered Elimination No (0 pt) Score/Fall Risk Level 0 - 2 = Low Risk Oriented to surroundings, Maintained a safe environment, Educated pt \\T\\ family on fall prevention, incl call for assistance when getting out of bed, Hourly rounding (assess needs \\T\\ fall precautionary measures) done. Abuse screen: Denies threats or abuse. Nutritional screening: No deficits noted. Tuberculosis screening: No symptoms or risk factors identified. Assessment: 11:15 General: Appears uncomfortable, Behavior is cooperative, appropriate for age, anxious. dd2 Pain: Denies pain. Neuro: Level of Consciousness is awake, alert, obeys commands, Oriented to person, place, time, situation, Appropriate for age. Cardiovascular: Reports shortness of breath, Denies chest pain, Patient's skin is warm and dry. Rhythm is Respiratory: Reports shortness of breath at rest on exertion Airway is patent Respiratory effort is even, pursed lip, Respiratory pattern is regular, Breath sounds are clear bilaterally. GI: No deficits noted. No signs and/or symptoms were reported involving the gastrointestinal system. : No deficits noted. No signs and/or symptoms were reported regarding the genitourinary system. EENT: No deficits noted. No signs and/or symptoms were reported regarding the EENT system. Derm: No deficits noted. No signs and/or symptoms reported regarding the dermatologic system. Musculoskeletal: No deficits noted. No signs and/or symptoms reported regarding the musculoskeletal system. Vital Signs: 10:32 BP 118 / 92; Pulse 118; Resp 25 S; Temp 98.4(O); Pulse Ox 98% on R/A; Weight 69.85 kg kc6 (M); Height 5 ft. 1 in. (R); 11:15 BP 140 / 70; Pulse 105; Resp 19; Pulse Ox 98% ; dd2 13:00 BP 156 / 81; Pulse 91; Resp 17; Pulse Ox 100% ; dd2 14:30 BP 146 / 75; Pulse 89; Resp 18; Pulse Ox 99% ; dd2 16:00 BP 140 / 69; Pulse 91; Resp 16; Pulse Ox 97% ; dd2 10:32 Body Mass Index 29.10 (69.85 kg, 154.94 cm) 6 ED Course: 10:22 Patient arrived in ED. im 10:24 Edel Wyman MD is Attending Physician. sd2 10:24 RAFAELA IVEY, RN is Primary Nurse. dd2 10:33 Triage completed. kc6 10:33 Arm band placed on. kc6 10:48 EKG done, by ED staff, reviewed by Edel Wyman MD. ph 10:56 XRAY Chest (1 view) In Process Unspecified. EDMS 10:57 SARS RAPID Sent. dd2 10:57 BNP Sent. dd2 10:57 Troponin High Sensitivity Sent. dd2 10:57 Magnesium Sent. dd2 10:57 CMP Sent. dd2 10:57 CBC with Diff Sent. dd2 11:15 Patient has correct armband on for positive identification. Bed in low position. Call dd2 light in reach. Side rails up X 1. Provided Education on: Call light, labs, medications. Client placed on continuous cardiac and pulse oximetry monitoring. NIBP monitoring applied. vehicle monitor technician on. Door closed. Pillow given. Verbal reassurance given. 11:15 No provider procedures requiring assistance completed. Inserted saline lock: 20 gauge dd2 in left antecubital area, using aseptic technique. Blood collected. Flushed with 10 mL NS. 11:15 Initial lab(s) drawn, by me, sent to lab. COVID swab sent to lab. dd2 11:17 Notified ED physician of a critical lab result(s). Troponin 496.9. No verbal orders ll1 given. 12:05 Chato Werner MD is Hospitalizing Provider. sd2 13:05 CM met with patient at bedside in ED exam room. Patient identified by name and ane .Demographic sheet confirmed. Patient states she lives alone in a trailer but the trailer is in back of her daughter Jing's home. She also states her son lives next door. Dr. Werner is her PCP and she states she has an MPOA in place. Mrs Mueller reports prior to admission, she typically uses a walker to get around but right before admission, she became increasingly weak and SOB where she could not even use the walker to ambulate. She states she does not have HH, home oxygen or other DME in her home. When asked about HH, she mentioned that in the summer of 2022, she was diagnosed with "stomach cancer" and placed on Hospice, and states " ...and didn't ." and was taken off hospice. Mrs Mueller does not recall the name of the hospice service. Her preferred plan is to return home upon discharge and states her daughter Jing is able to transport her home. CM team will continue to follow and coordinate care. 16:44 Patient admitted, IV remains in place. dd2 Administered Medications: 11:06 CANCELLED (Physician Discretion): ondansetron 4 mg IVP once; over 2 minutes sd2 11:13 Drug: Ativan IVP 0.5 mg IVP once Route: IVP; Site: left antecubital; dd2 11:28 Follow up: Response: No adverse reaction dd2 11:45 Drug: Aspirin PO Chewable Tablet 324 mg PO once; 81 mg tablets x 4 Route: PO; dd2 12:15 Follow up: Response: No adverse reaction dd2 11:45 Drug: Furosemide IVP 60 mg IVP once; give over 2 minutes Route: IVP; Site: left dd2 antecubital; 12:00 Follow up: Response: No adverse reaction dd2 Medication: 11:15 VIS not applicable for this client. dd2 Outcome: 12:05 Decision to Hospitalize by Provider. sd2 16:00 Admitted to Med/surg accompanied by nurse, via wheelchair, with chart, dd2 16:00 Condition: stable 16:00 Instructed on the need for admit, 17:27 Patient left the ED. ko1 Signatures: Dispatcher [employer] EDMS Fay Otoole RN Danii Smith ph, RN RN ll1 Edel Wyman MD MD sd2 Shaina Mcfarland RN RN kc6 Baylee Vera RN RN ko1 Monse Brennan Andie, RN RN ane DAVIS, DIANA RN BLAISE dd2
[2024-02-29] MEDS ORDERED: ACETAMINOPHEN 500 MG TAB PO PRN (12:06)
[2024-02-29 13:05] VITALS: BMI 28.9
--- NOTE | 2024-02-29 13:10 | P.HP ---
Patient History Date of Service: 02/29/24 Reason for admission: DYSPNEA, ANXIETY History of Present Illness: MICHAEL CAME TO OFFICE FOR LABWORK. SHE WAS VISIBLY PANTING AND ANXIOUS. I ASKED HER TO GO TO ER. DR. KRISHNA FOUND HER TO HAVE CHF AND TROP ELEVATION. SHE IS ALSO VERY ANXIOUS. SHE IS NOW ADMITTED. Allergies diazepam [From Valium] Allergy (Verified 05/27/21 08:13) Hyperactive sulfamethoxazole [From Bactrim] Allergy (Verified 05/27/21 08:13) Hives trimethoprim [From Bactrim] Allergy (Verified 05/27/21 08:13) Hives Home medications list reviewed: Yes Home Medications: Alprazolam [Xanax] 0.5 mg PO DAILY PRN 07/18/20 Losartan Potassium [Cozaar] 100 mg PO DAILY 07/18/20 Metoprolol Succinate 50 mg PO DAILY 07/18/20 Mirtazapine [Remeron*] 1 tab PO BEDTIME 07/18/20 Pantoprazole [Protonix Tab*] 40 mg PO DAILY 07/18/20 Pravastatin Sodium 40 mg PO DAILY 07/18/20 Tizanidine [Zanaflex*] 1 tab PO BEDTIME 07/18/20 Aspirin [Aspirin EC 81 MG] 81 mg PO BEDTIME 05/26/21 Ferrous Sulfate [Ferrous Sulfate*] 325 mg PO BEDTIME 05/26/21 Levothyroxine [Synthroid*] 50 mcg PO [id number] 05/26/21 Loratadine [Claritin*] 10 mg PO DAILY 05/26/21 Venlafaxine HCl [Venlafaxine HCl ER] 75 mg PO BEDTIME 12/20/21 Vit A/Vit C/Vit E/Zinc/Copper [Preservision Areds Softgel] 1 tab PO BEDTIME 12/20/21 Albuterol Sulfate [Ventolin Hfa] 8 gm IH TID #1 hfa.aer.ad 12/25/21 levoFLOXacin [Levaquin*] 750 mg PO Q48H #5 tab 12/25/21 - Past Medical/Surgical History Diabetic: No -: emphysema -: arthritis -: hemorrhoids -: pacemaker Dual chamber RV/RA -: stomach ulcers -: melanoma -: right finger amputation -: HTN -: HYpothyroid -: hernia repair -: thyroid removal -: tonsillectomy -: Pacemaker placement - Family History Mother -: Cancer Notes: Colon Cancer - Social History Alcohol use: No CD- Drugs: No Caffeine use: No Review of Systems 10-point ROS is otherwise unremarkable General: Weakness Physical Examination - Physical Exam General: Oriented x3, Moderate distress HEENT: Atraumatic, PERRLA, Mucous membr. moist/pink, EOMI, Sclerae nonicteric Neck: Supple, 2+ carotid pulse no bruit, No LAD, Without JVD or thyroid abnormality Respiratory: Diminished Cardiovascular: Regular rate/rhythm, Normal S1 S2 Gastrointestinal: Normal bowel sounds, No tenderness Musculoskeletal: No tenderness Integumentary: No rashes Neurological: Normal gait, Normal speech, Normal strength at 5/5 x4 extr, Normal tone, Normal affect Lymphatics: No axilla or inguinal lymphadenopathy - Studies Laboratory Data (last 24 hrs) 02/29/24 02/29/24 10:46 10:46 WBC 16.40 H Hgb 10.3 L Hct 31.7 L Plt Count 254 Sodium 136 Potassium 3.6 BUN 36 H Creatinine 1.43 H Glucose 184 H Magnesium 1.9 Total Bilirubin 0.5 AST 21 ALT 26 Alkaline Phosphatase 69 Assessment and Plan - Problems (Diagnosis) (1) Diastolic heart failure Current Visit: Yes Status: Acute Plan: MOST LIKLEY BLAIR HEA FAILURE LASIX IV BID KCL PO BID. ECHO WITH DOPP CONSULT CARD TROP IS HIGH. MEDICAL MX. (2) Elevated troponin Current Visit: Yes Status: Acute Plan: ABOVE. (3) Anxiety disorder Current Visit: Yes Status: Acute Plan: SHE IS OXANAX AT HOME. SSRI IF NOT TAKEN. - Advance Directives Does patient have a Living Will: No Does patient have a Durable POA for Healthcare: No
[2024-02-29 13:19] LABS: Blood Morphology Comment NOT SEEN (NOT SEEN); Platelet Estimate ADEQ; White Blood Cell Scan OK (OK)
--- NOTE | 2024-02-29 16:33 | P.CNS ---
Date of Consult: 02/29/24 Chief Complaint: DYSPNEA, ANXIETY History of Present Illness: Patient with PMH of HTN, Pacemaker placement, heart murmur presented with worsening SOB for the last two weeks, she also mention having some chest pain but no pressure, abdominal pain and dizziness, no syncope. Allergies diazepam [From Valium] Allergy (Verified 05/27/21 08:13) Hyperactive sulfamethoxazole [From Bactrim] Allergy (Verified 05/27/21 08:13) Hives trimethoprim [From Bactrim] Allergy (Verified 05/27/21 08:13) Hives Home medications list reviewed: Yes Home Medications: Alprazolam [Xanax] 0.5 mg PO DAILY PRN 07/18/20 Losartan Potassium [Cozaar] 100 mg PO DAILY 07/18/20 Metoprolol Succinate 50 mg PO DAILY 07/18/20 Mirtazapine [Remeron*] 1 tab PO BEDTIME 07/18/20 Pantoprazole [Protonix Tab*] 40 mg PO DAILY 07/18/20 Pravastatin Sodium 40 mg PO DAILY 07/18/20 Tizanidine [Zanaflex*] 1 tab PO BEDTIME 07/18/20 Aspirin [Aspirin EC 81 MG] 81 mg PO BEDTIME 05/26/21 Ferrous Sulfate [Ferrous Sulfate*] 325 mg PO BEDTIME 05/26/21 Levothyroxine [Synthroid*] 50 mcg PO [id number] 05/26/21 Loratadine [Claritin*] 10 mg PO DAILY 05/26/21 Venlafaxine HCl [Venlafaxine HCl ER] 75 mg PO BEDTIME 12/20/21 Vit A/Vit C/Vit E/Zinc/Copper [Preservision Areds Softgel] 1 tab PO BEDTIME 12/20/21 Albuterol Sulfate [Ventolin Hfa] 8 gm IH TID #1 hfa.aer.ad 12/25/21 levoFLOXacin [Levaquin*] 750 mg PO Q48H #5 tab 12/25/21 - Past Medical/Surgical History Diabetic: No -: emphysema -: arthritis -: hemorrhoids -: pacemaker Dual chamber RV/RA -: stomach ulcers -: melanoma -: right finger amputation -: HTN -: HYpothyroid -: hernia repair -: thyroid removal -: tonsillectomy -: Pacemaker placement - Family History Mother Medical History: Cancer Notes: Colon Cancer - Social History Smoking Status: Unknown if ever smoked Alcohol use: No CD- Drugs: No Caffeine use: No Review of Systems 10-point ROS is otherwise unremarkable Physical Examination General: Alert, In no apparent distress HEENT: Atraumatic, PERRLA, Mucous membr. moist/pink, EOMI, Sclerae nonicteric Neck: Supple, 2+ carotid pulse no bruit, No LAD, Without JVD or thyroid abnormality Respiratory: Diminished, Crackles/rales Cardiovascular: Regular rate/rhythm, Normal S1 S2, Edema, Systolic murmur, Diastolic murmur Gastrointestinal: Normal bowel sounds, No tenderness Musculoskeletal: No tenderness Integumentary: No rashes Neurological: Normal gait, Normal speech, Normal tone, Normal affect Lymphatics: No axilla or inguinal lymphadenopathy Laboratory Data (last 24 hrs) 02/29/24 02/29/24 10:46 10:46 WBC 16.40 H Hgb 10.3 L Hct 31.7 L Plt Count 254 Sodium 136 Potassium 3.6 BUN 36 H Creatinine 1.43 H Glucose 184 H Magnesium 1.9 Total Bilirubin 0.5 AST 21 ALT 26 Alkaline Phosphatase 69 - Problems (1) Acute on chronic diastolic heart failure Current Visit: Yes Status: Acute Plan: Patient echo shows severe pulmonary hypertension and mild elevated RA filling pressure. Lasix 40 mg IV BID Continue to monitor input and output Monitor and correct electrolytes. (2) Mitral stenosis Current Visit: Yes Status: Acute Plan: explained to patient in details options of surgery vs medical management and she is not interested in any kind of intervention at this time and prefer medical management. start patient on metoprolol 25 mg po BID lower down losartan if BP is an issue. (3) Aortic stenosis Current Visit: Yes Status: Acute Plan: explained to patient in details options of surgery vs medical management and she is not interested in any kind of intervention at this time and prefer medical management. (4) NSTEMI (non-ST elevated myocardial infarction) Current Visit: Yes Status: Acute Plan: explained to patient in details options of coronary angiogram vs medical management and she is not interested in any kind of intervention at this time and prefer medical management. continue to trend cardiac enzymes, most likely type 2 CO from CHF, BERNARDO ASA 81 mg daily Lipitor 40 mg daily.
--- NOTE | 2024-02-29 16:33 | RAD REPORT ---
EXAM DESCRIPTION: RAD - Chest Single View - 02/29/2024 10:54 am CLINICAL HISTORY: SOB Chest pain. COMPARISON: Chest Pa And Lat (2 Views) dated 02/09/2024; Chest Single View dated 12/20/2021; Chest Pa And Lat (2 Views) dated 05/26/2021; Chest Pa And Lat (2 Views) dated 03/27/2020 FINDINGS: Portable technique limits examination quality. The lungs are grossly clear. Moderate cardiomegaly. Dual lead pacer device. No displaced fractures.Ao rtic atherosclerosis. IMPRESSION: No acute intrathoracic process suspected.
--- NOTE | 2024-02-29 17:02 | RAD REPORT ---
EXAM DESCRIPTION: CT - Chest For Pe Angio - 02/29/2024 1:31 pm CLINICAL HISTORY: Chest pain COMPARISON: 2010 TECHNIQUE: Dynamically enhanced axial 3 mm thick images of the chest were obtained during administra tion of 100 mL Isovue 370 IV contrast. Coronal and oblique reconstruction images were generated and r eviewed. Exam utilizes a protocol for optimal evaluation of pulmonary arterial tree. Maximum intensity projections 3D imaging was utilized All CT scans are performed using dose optimization technique as appropriate and may include automated exposure control or mA/KV adjustment according to patient size. FINDINGS: A pulmonary embolus is not seen. A thoracic aortic aneurysm is not noted. A pleural effusion is not seen. A pericardial effusion is not seen. Mild chronic area of atelectasis right middle lobe 2.3 centimeter mass right neural foramina lower thoracic spine mildly enlarged from 2010 Due to technical issues this exam could not dictated until now IMPRESSION: Negative for a pulmonary embolism. 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 Further e valuation with an enhanced MRI would be helpful for further evaluation
[2024-02-29] MEDS: FUROSEMIDE 40 MG/4 ML VIAL IV SCH (17:50)
[2024-02-29] MEDS ORDERED: ALPRAZOLAM 0.5 MG TABLET PO PRN ×2 (21:01→21:26)
[2024-02-29] MEDS: TIZANIDINE 4 MG TABLET PO SCH (21:03)
[2024-02-29] MEDS: VENLAFAXINE HCL XR 75 MG CAP PO SCH (21:03)
[2024-02-29] MEDS: POTASSIUM CL SA 10 MEQ TAB PO SCH (21:03)
[2024-02-29] MEDS: MIRTAZAPINE 15 MG TAB PO SCH (21:03)
[2024-03-01 04:37] LABS: Absolute Eosinophils 0.3 K/uL (0-0.5); Absolute Lymphocytes (CBC) 1.9 K/uL (0.7-4.9); Absolute Monocytes 1.3 K/uL (0.1-1.3); Absolute Neutrophil 9.4 K/uL (1.8-8.0); Basophils % 0.2 % (0-1.3); Hematocrit 30.6 % (36.0-45.0); Hemoglobin 10.1 g/dL (12.0-15.0); Lymphocytes % 14.4 % (15.3-44.8); MCH 28.6 pg (27.0-35.0); MCHC 33.1 g/dL (32.0-36.0); MCV 86.4 fL (80-100); Monocytes % 10.3 % (3.3-12.3); Neutrophils % 73.1 % (41.7-73.7); Platelets 250 thou/uL (152-406); RBC Red Blood Cell Count 3.54 M/uL (3.86-4.86); Red Cell Distribution Width 15.3 % (12.1-15.2)
[2024-03-01 04:54] LABS: Anion Gap 11.3 mEq/L (5.0-15.0); Potassium 3.3 mEq/L (3.5-5.1)
[2024-03-01] MEDS: LEVOTHYROXINE SOD 0.05 MG TABLET PO SCH (05:51)
--- NOTE | 2024-03-01 07:46 | ECHO ---
HEIGHT: 5 ft 1 in WEIGHT: 153 lb 0 oz DATE OF STUDY: 02/29/[address]: Chato Werner MD 2-DIMENSIONAL: YES M.MODE: YES DOPPLER: YES COLOR FLOW: YES TDS: PORTABLE: YES DEFINITY: BUBBLE STUDY: DIAGNOSIS: EDEMA/ DYSPNEA CARDIAC HISTORY: CATHERIZATION: SURGERY: PROSTHETIC VALVE: PACEMAKER: YES MEASUREMENTS (cm) DIASTOLIC (NORMALS) SYSTOLIC (NORMALS) IVSd 1.2 (0.6-1.2) LA Diam 4.8 (1.9-4.0) LVEF 60% LVIDd 6.2 (3.5-5.7) LVIDs 3.7 (2.0-3.5) %FS LVPWd 1.3 (0.6-1.2) Ao Diam 2.8 (2.0-3.7) 2 DIMENSIONAL ASSESSMENT: RIGHT ATRIUM: NORMAL LEFT ATRIUM: SEVERELY DILATED RIGHT VENTRICLE: NORMAL LEFT VENTRICLE: MODERATE DILATED TRICUSPID VALVE: MILD TO MODERATE TRICUSPID REGURGITATION MITRAL VALVE: SEVERE MITRAL ANNULAR CALCIFICATION PULMONIC VALVE: NORMAL AORTIC VALVE: SEVERELY CALCIFIED PERICARDIAL EFFUSION: NONE AORTIC ROOT: NORMAL LEFT VENTRICULAR WALL MOTION: NORMAL DOPPLER/COLOR FLOW: DIASTOLIC DYSFUNCTION COMMENTS: 1. MODERATELY DILATED LEFT VENTRICULAR CAVITY, MILD LEFT VENTRICULAR HYPERTROPHY 2. NORMAL LEFT VENTRICULAR SYSTOLIC FUNCTION, EJECTION FRACTION 60%. PARADOXICAL SEPTAL MOTION CONSISTENT WITH PACING. 3. DIASTOLIC DYSFUNCTION. 4. SEVERE MITRAL CALCIFICATION. SEVERE MITRAL STENOSIS WITH SEVERE MITRAL REGURGITATION. 5. SEVERE CALCIFIED AORTIC STENOSIS. AORTIC VALVE AREA 0.7 CENTIMETERS SQUARED. MEAN GRADIENT 50 mmHg. 6. SEVERELY DILATED LEFT ATRIUM. 7. SEVERE PULMONARY HYPERTENSION. RIGHT VENTRICULAR SYSTOLIC PRESSURE GREATER THAN 60 mmHg. 8. MILDLY ELEVATED FILLING PRESSURE. RIGHT ATRIUM 5-10 mmHg. TECHNOLOGIST: JOSE SWIFT [facility]
[2024-03-01 08:47] VITALS: BP 152/80; TEMP 97.5
[2024-03-01] MEDS ORDERED: predniSONE 20 MG TAB PO SCH (09:00)
[2024-03-01] MEDS ORDERED: PANTOPRAZOLE 40MG TABLET PO SCH (09:00)
[2024-03-01] MEDS ORDERED: HYDROXYZINE HCL 10 MG/5 ML SYRUP UD PO PRN (09:00)
[2024-03-01] MEDS ORDERED: SUCRALFATE 1 GM TABLET PO SCH (09:00)
[2024-03-01] MEDS ORDERED: LOSARTAN POTASSIUM 50 MG TABLET PO SCH (09:00)
[2024-03-01] MEDS ORDERED: SPIRONOLACTONE 25 MG TABLET PO SCH (09:00)
[2024-03-01] MEDS ORDERED: ENOXAPARIN 30 MG/0.3 ML SQ SCH (09:00)
[2024-03-01] MEDS ORDERED: METOPROLOL XL 50 MG TAB PO SCH (09:00)
[2024-03-01] MEDS ORDERED: levoFLOXacin 250 MG TAB PO SCH (09:00)
[2024-03-01 09:16] VITALS: O2SAT 98
--- NOTE | 2024-03-01 09:46 | P.PN ---
Subjective Date of Service: 03/01/24 Chief Complaint: DYSPNEA, ANXIETY Subjective: No new changes, No C/O voiced, Tolerating diet, Ambulating, Improving Review of Systems 10-point ROS is otherwise unremarkable Physical Examination - Vital Signs Temperature: 97.5 F Blood Pressure: 152/80 Pulse: 109 Respirations: 17 Pulse Ox (%): 96 - Physical Exam General: Alert, In no apparent distress HEENT: Atraumatic, PERRLA, EOMI Neck: Supple, JVD not distended Respiratory: Clear to auscultation bilaterally, Normal air movement Cardiovascular: Regular rate/rhythm, Normal S1 S2 Gastrointestinal: Normal bowel sounds, No tenderness Musculoskeletal: No tenderness Integumentary: No rashes Neurological: Normal speech, Normal tone, Normal affect Lymphatics: No axilla or inguinal lymphadenopathy - Studies Laboratory Data (last 24 hrs) 02/29/24 02/29/24 10:46 10:46 WBC 16.40 H Hgb 10.3 L Hct 31.7 L Plt Count 254 Sodium 136 Potassium 3.6 BUN 36 H Creatinine 1.43 H Glucose 184 H Magnesium 1.9 Total Bilirubin 0.5 AST 21 ALT 26 Alkaline Phosphatase 69 Medications List Reviewed: Yes Assessment And Plan - Current Problems (Diagnosis) (1) Acute on chronic diastolic heart failure Current Visit: Yes Status: Acute Plan: Patient echo shows severe pulmonary hypertension and mild elevated RA filling pressure. Patient wants to go home Toprol XL 50 mg daily Spirnolactone 25 mg daily Losartan 100 mg daily (2) Mitral stenosis Current Visit: Yes Status: Acute Plan: explained to patient in details options of surgery vs medical management and she is not interested in any kind of intervention at this time and prefer medical management. continue medications as above. (3) Aortic stenosis Current Visit: Yes Status: Acute Plan: explained to patient in details options of surgery vs medical management and she is not interested in any kind of intervention at this time and prefer medical management. (4) NSTEMI (non-ST elevated myocardial infarction) Current Visit: Yes Status: Acute Plan: explained to patient in details options of coronary angiogram vs medical management and she is not interested in any kind of intervention at this time and prefer medical management. continue to trend cardiac enzymes, most likely type 2 [place] from CHF, BERNARDO ASA 81 mg daily Lipitor 40 mg daily.
[2024-03-01] MEDS ORDERED: TIZANIDINE 4 MG TABLET PO SCH (21:00)
[2024-03-01] MEDS ORDERED: MIRTAZAPINE 15 MG TAB PO SCH (21:00)
--- NOTE | 2024-03-01 22:10 | P.DS ---
Admission Date: 02/29/24 Discharge Date: 03/01/24 Disposition: ROUTINE DISCHARGE Discharge Condition: FAIR Reason for Admission: DYSPNEA, ANXIETY - Problems (1) Diastolic heart failure Status: Acute (2) Elevated troponin Status: Acute (3) Anxiety disorder Status: Acute Brief History of Present Illness: MICHAEL CAME TO OFFICE FOR LABWORK. SHE WAS VISIBLY PANTING AND ANXIOUS. I ASKED HER TO GO TO ER. DR. KRISHNA FOUND HER TO HAVE CHF AND TROP ELEVATION. SHE IS ALSO VERY ANXIOUS. SHE IS NOW ADMITTED. Hospital Course: MICHAEL IS LOT BETTER SHE WANTS NOTHING DONE FOR POSSIBLE CAD SHE HAS NO SYMPTOMS ANXIETY IS LOT BETTER. SHE IS STABLE TO GO HOME. Vital Signs/Physical Exam: Temp Pulse Resp BP Pulse Ox 97.5 F 109 H 17 152/80 H 96 03/01/24 09:46 03/01/24 09:46 03/01/24 09:46 03/01/24 09:46 03/01/24 09:46 Laboratory Data at Discharge: WBC 12.90 thou/uL (4.3-10.9) H 03/01/24 04:21 Hgb 10.1 g/dL (12.0-15.0) L 03/01/24 04:21 Hct 30.6 % (36.0-45.0) L 03/01/24 04:21 Plt Count 250 thou/uL (152-406) 03/01/24 04:21 Sodium 137 mEq/L (136-145) 03/01/24 04:21 Potassium 3.3 mEq/L (3.5-5.1) L 03/01/24 04:21 BUN 42 mg/dL (7-18) H 03/01/24 04:21 Creatinine 1.64 mg/dL (0.55-1.02) H 03/01/24 04:21 Glucose 126 mg/dL (74-106) H 03/01/24 04:21 Magnesium 1.9 mg/dL (1.6-2.4) 02/29/24 10:46 Total Bilirubin 0.5 mg/dL (0.2-1.0) 02/29/24 10:46 AST 21 U/L (15-37) 02/29/24 10:46 ALT 26 U/L (13-56) 02/29/24 10:46 Alkaline Phosphatase 69 U/L (45-117) 02/29/24 10:46 Home Medications: Alprazolam [Xanax] 0.5 mg PO DAILY PRN 07/18/20 Metoprolol Succinate 50 mg PO DAILY 07/18/20 Mirtazapine [Remeron*] 15 mg PO BEDTIME 07/18/20 Pantoprazole [Protonix Tab*] 40 mg PO DAILY 07/18/20 Tizanidine [Zanaflex*] 4 mg PO BEDTIME 07/18/20 Levothyroxine [Synthroid*] 75 mcg PO [id number] 05/26/21 Venlafaxine HCl [Venlafaxine HCl ER] 75 mg PO DAILY 12/20/21 Vit A/Vit C/Vit E/Zinc/Copper [Preservision Areds Softgel] 1 tab PO BEDTIME 12/20/21 Curaphen 1 cap PO DAILY 02/29/24 Furosemide [Lasix*] 40 mg PO DAILY 02/29/24 Hydroxyzine HCl [Atarax] 10 mg PO DIRECTED PRN 02/29/24 Mitochondrial Energy Booster 1 tab PO DAILY 02/29/24 Spironolactone [Aldactone*] 25 mg PO DAILY 02/29/24 Sucralfate [Carafate] 1 gm PO DAILY 02/29/24 predniSONE [Prednisone*] 20 mg PO DAILY 02/29/24 Sertraline [Zoloft*] 25 mg PO DAILY #30 tab 03/01/24 New Medications: Sertraline [Zoloft*] 25 mg PO DAILY #30 tab Followup: Chato Werner MD [Primary Care Provider] - 1-2 Weeks
--- NOTE | 2024-03-02 14:13 | EKG ---
Test Date: 2024-02-29 Test Time: 10:45:27 Technician Telecommunication Systems: PH MEASUREMENT RESULTS: Intervals: Rate: 110 VT: QRSD: 212 QT: 486 QTc: 657 Nora: P: VT: QRS: -65 T: 104 INTERPRETIVE STATEMENTS: Ventricular-paced rhythm Abnormal ECG Compared to ECG 12/20/2021 12:08:25 No significant changes Electronically Signed On 03-02-24 14:08:14 CDT by Nasir Brock
== END 2024-03-01 10:21 | disposition home or self-care (01) | DRG 280 ==
LOC: ER 10:19 → ERHOLD 12:11 → 2ND 16:49
PROVIDERS: ADMIT Internal Medicine; ATTEND Internal Medicine
DX: I11.0 Hypertensive heart disease with heart failure (principal); I50.33 Acute on chronic diastolic (congestive) heart failure; I21.A1 Myocardial infarction type 2; J18.9 Pneumonia, unspecified organism; J44.0 Chronic obstructive pulmonary disease with (acute) lower respiratory infection; N17.9 Acute kidney failure, unspecified; E78.5 Hyperlipidemia, unspecified; F41.9 Anxiety disorder, unspecified; E03.9 Hypothyroidism, unspecified; I35.0 Nonrheumatic aortic (valve) stenosis; I05.0 Rheumatic mitral stenosis; I27.20 Pulmonary hypertension, unspecified; I25.10 Atherosclerotic heart disease of native coronary artery without angina pectoris; R79.89 Other specified abnormal findings of blood chemistry; Z95.0 Presence of cardiac pacemaker; Z88.1 Allergy status to other antibiotic agents; Z79.82 Long term (current) use of aspirin; Z89.021 Acquired absence of right finger(s); Z79.899 Other long term (current) drug therapy
CPT/HCPCS: 36415; 71045; 71275; 80048; 80053; 83735; 83880; 84484; 85025; 87811; 93005; 93306; 96374; 96375; 97161; 99285; J1650; J1940; J7512; Q9967

== ENCOUNTER 2024-06-28 12:38 | Emergency (ER) | payer OTHER ==
--- OUTSIDE RECORDS SUMMARY | 2024-06-28 12:41 | XMS REPORT | Clinical Summary ---
Author Name Unknown Organization [facility] Address [address] [place] [address] Care Team Providers Care Seat Nailer Name Role Phone Sudheer Benson MD Unavailable [phone] Sharad Uriostegui MD Primary Care Provider [email or web address] Leobardo Ovalle MD Unavailable [phone] King Mccoy MD Unavailable Allergies Active Allergy Reactions Criticality Noted Date Comments Sulfamethoxazole-Trimethop rim Rash Low 10/28/2016 Diazepam Other (See Comments) 10/28/2016 Hyperactivty Medications * This document contains information received from the source organization and may not represent a complete record from that organization. citalopram (CeleXA) 40 mg tablet Take 1 [...] Take 30 mg by mouth daily. Active cholecalciferol , vitamin D3, 1,000 units tablet Take 1,000 [...] Cutaneous squamous cell carcinoma) Sick sinus syndrome Overview (10/28/2016): permanent pacemaker Hypothyroidism Hypertension Hyperlipidemia Gastroesophageal reflux disease Basal cell carcinoma of other specified sites of skin Allergic rhinitis Presence of cardiac pacemaker Surgical History Surgery Date Site/Laterality Comments CARDIAC PACEMAKER PLACEMENT 09/01/2011 FINGER AMPUTATION 11/26/2015 - 12/25/2015 right 5th digit EGD 09/25/2016 - 10/24/2016 CATARACT EXTRACTION, BILATERAL WI EXCISION MALIGNANT LESION F/E/E/N/L 0.5 CM/< 11/08/2016 Right Procedure: EXCISION OF MALIGNANT LESION OF NOSE; Surgeon: Sharad Uriostegui MD; Location: MAIN OR; Service: HN - HEAD & NECK SURGERY WI EXC LESION EYELID W/O CLSR/W/SIMPLE DIR CLOSURE 11/08/2016 Right Procedure: EXCISION OF LESION OF CHEEK; Surgeon: Sharad Uriostegui MD; Location: MAIN OR; Service: HN - HEAD & NECK SURGERY WI ADJT TIS TRNS/REARGMT F/C/C/M/N/A/G/H/F 10SQCM/< 11/12/2016 Right Procedure: REARRANGEMENT OF ADJACENT TISSUE FOR REPAIR OF DEFECT OF NOSE; Surgeon: Leobardo Ovalle MD; Location: [facility]; Service: PLS - PLASTIC SURGERY WI FLAP ISLAND PEDICLE ANATOMIC NAMED AXIAL ARTERY 11/12/2016 Nose/Right Procedure: FORMATION OF ISLAND PEDICLE FLAP GRAFT; Surgeon: Leobardo Ovalle MD; Location: [facility]; Service: PLS - PLASTIC SURGERY WI REMV TISSUE FOR GRAFT OTHR 11/12/2016 Nose/Right Procedure: EAR CARTILAGE GRAFT AND FULL THICKNESS SKIN GRAFT ; Surgeon: Leobardo vOalle MD; Location: [facility]; Service: PLS - PLASTIC SURGERY THYROIDECTOMY, PARTIAL TONSILLECTOMY HERNIA REPAIR x's 2 right groin OTHER SURGICAL HISTORY ruptured ulcer WI DELAY FLAP/SCTJ FLAP EYELIDS NOSE EARS/LIPS 12/17/2016 [...] Former Cigarettes 1.3 40 1 957 - 1997 Smokeless Tobacco: Never Comments:1-1.5 ppd Alcohol Use Standard Drinks/Week Comments Yes 0 (1 standard drink = 0.6 oz pur e alcohol) socially Comments No Sex and Gender Information Value Date Recorded Sex Assigned at Not on file Legal Sex Female 3:14 PM CDT Gender Identity Not on file Sexual Orientation Not on file Occupation Industry Job Start Date Job End Date 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 Pacemaker Insurance GENERIC MEDICARE PART A AND B GENERIC GENERIC Advance Directives * Full Code (Latest Code Status on File) Date Activated Date Inactivated Comments 12/17/2016 7:14 AM 12/17/2016 12:24 PM * Full Code Date Activated Date Inactivated Comments 11/12/2016 1:43 PM 11/12/2016 8:42 PM Care Teams Seat Nailer Relationship Specialty Start Date End Date Sudheer Benson MD [address] [place] [address] PCP - External Referring 10/21/16 Sharad Uriostegui MD [address] [place] [address] [email or web address] PCP - General Head and Neck Surgery 10/22/16 Leobardo Ovalle MD [address] [place] [id number] [email or web address] Consulting Physician Plastic and Reconstructive Surgery 11/04/16 King Mccoy MD [address] [place] [phone] [email or web address] Consulting Physician Internal Medicine 11/02/16
--- NOTE | 2024-06-28 13:06 | RAD REPORT ---
EXAMINATION: ONE VIEW CHEST XR CLINICAL INDICATION: COUGH TECHNIQUE: Frontal chest projection is submitted. Examination is limited by patient positioning and t echnique. COMPARISON: 06/12/2024 FINDINGS: Moderate bilateral pulmonary opacities, greater on the right, potentially pneumonia or pulmonary riya a. The heart is moderately enlarged with dual lead pacer device. No displaced fractures identified. Aortic atherosclerosis.
[2024-06-28] MEDS ORDERED: ONDANSETRON 4 MG/2 ML VIAL ONE (13:25)
[2024-06-28] MEDS ORDERED: NA CHLORIDE 0.9% 1,000 ML ONE (13:25)
[2024-06-28] MEDS ORDERED: BISACODYL 10 MG RECTAL SUPP ONE (13:25)
[2024-06-28] MEDS ORDERED: LACTULOSE 20 GM/30 ML UCUP ONE ×2 (13:26→16:45)
[2024-06-28 13:29] LABS: Absolute Lymphocytes (CBC) 0.5 K/uL (0.7-4.9); Absolute Monocytes 0.7 K/uL (0.1-1.3); Absolute Neutrophil 9.4 K/uL (1.8-8.0); Basophils % 0.4 % (0-1.3); Eosinophils % 0.2 % (0-4.4); Hematocrit 26.8 % (36.0-45.0); Hemoglobin 8.8 g/dL (12.0-15.0); Lymphocytes % 4.6 % (15.3-44.8); MCH 28.9 pg (27.0-35.0); MCHC 32.9 g/dL (32.0-36.0); MCV 87.8 fL (80-100); MPV 7.5 fL (7.6-11.3); Monocytes % 6.3 % (3.3-12.3); Neutrophils % 88.5 % (41.7-73.7); Platelets 327 thou/uL (152-406); RBC Red Blood Cell Count 3.05 M/uL (3.86-4.86); Red Cell Distribution Width 14.2 % (12.1-15.2)
[2024-06-28 13:31] LABS: PT Prothrombin Time 11.9 SECONDS (9.4-12.5); Protime INR 1.06
[2024-06-28 13:49] LABS: Albumin 3.5 g/dL (3.4-5.0); Albumin/Globulin Ratio 1.3 (1.1-1.8); Anion Gap 12.2 mEq/L (5.0-15.0); Bilirubin Direct 0.2 mg/dL (0-0.2); Bilirubin Indirect, Calculated 0.5 mg/dL (0.2-0.8); Bilirubin Total 0.7 mg/dL (0.2-1.0); Globulin 2.8 g/dL (2.3-3.5); Potassium 3.2 mEq/L (3.5-5.1); Protein, Total 6.3 g/dL (6.4-8.2); Troponin High Sensitivity 54.4 pg/mL (<58.9)
[2024-06-28 14:03] LABS: Blood Morphology Comment NOT SEEN (NOT SEEN); Platelet Estimate ADEQ; White Blood Cell Scan OK (OK)
[2024-06-28 14:49] LABS: Sqamous Epithelial <5 /HPF (None Seen); Urine Bacteria <20 /HPF (<20); Urine Crystals Unidentified Few /HPF (None Seen); Urine Culture Reflex Order NOT NEEDED; Urine Microscopic Reflex YN ORDER UMIC; Urine Mucus Slight /HPF (None Seen); Urine RBC <5 /HPF (None Seen); Urine WBC <5 /HPF (<5); Urine WBC Clump Rare /HPF (None Seen); Urine Yeast (Budding) Trace /HPF (None Seen)
[2024-06-28 14:50] LABS: Specific Gravity 1.007 (1.005-1.030); Urine Bilirubin Negative (Negative); Urine Blood 1+ (Negative); Urine Clarity Turbid (Clear); Urine Color Yellow (Yellow); Urine Glucose Negative (Negative); Urine Ketones Negative (Negative); Urine pH 6.5 (5.0-7.0)
[2024-06-28 14:51] LABS: Urine Nitrite Negative (Negative); Urine Protein Negative (Negative); Urine Urobilinogen Normal (Normal)
--- NOTE | 2024-06-28 14:57 | RAD REPORT ---
EXAMINATION: CT ABDOMEN AND PELVIS WITHOUT CONTRAST CLINICAL INDICATION: ABD PAIN TECHNIQUE: CT abdomen and pelvis was performed, without IV contrast, as per department protocol. Axia l, sagittal and coronal reconstructions were obtained. One or more of the following dose reduction techniques were used: Automated exposure control, adjustment of the mA and kV according to the patien t size, and iterative reconstruction. Unless otherwise specified, incidental findings do not require dedicated imaging follow-up. COMPARISON: 02/29/2024, 12/23/2021 FINDINGS: The lack of intravenous contrast limits the sensitivity of this exam for evaluation of solid visceral organs, vascular structures, and retroperitoneum. LOWER CHEST: Irregular cavitary lesions are present in the right lower lobe, measuring 21 mm, 17 mm i n size. Additional groundglass nodular lesion in the right lower lung measures 19 mm without cavitation. Trace right pleural fluid. LIVER:Normal in size and contour. No focal lesion. Grossly unremarkable gallbladder. SPLEEN: Normal size. No focal lesion. PANCREAS: Calcifications involving the pancreatic parenchyma particularly in the head of the pancreas likely represents chronic pancreatitis. ADRENALS: Thickening of the left adrenal gland is noted. Normal right adrenal gland. KIDNEYS AND URETERS: Normal size and contour. No hydronephrosis. URINARY BLADDER: Normal contour. GASTROINTESTINAL TRACT: No evidence of bowel obstruction, significant free fluid, free air or abscess . Moderate stool is seen throughout the colon. Moderate retention of fecal material in the rectum. APPENDIX: Normal appendix. LYMPH NODES: No lymphadenopathy. MUSCULOSKELETAL: Mild degenerative levoscoliosis of lumbar spine. ADDITIONAL FINDINGS: Significant atherosclerosis of the aorta and branch vessels. IMPRESSION: Moderate stool is retained in the rectosigmoid colon. No obstructing lesion is evident. Cavitary nodular lesions seen in the right lung base with trace right pleural effusion may be infecti ous or less likely neoplastic in origin.
--- NOTE | 2024-06-28 16:27 | EDPHYS ---
Physician Documentation [facility] Name: Elsa Mckeon Age: 89 yrs Sex: Female : 1935 Arrival Date: 06/28/2024 Time: 12:38 Bed 5 Private MD: ED Physician To Bailey HPI: 06/28 16:17 This 89 yrs old Female presents to ER via Wheelchair with complaints of shorty Vomiting, Constipation. 16:17 The patient presents to the emergency department with nausea, vomiting, that is shorty intermittent, abdominal pain, of the right lower quadrant and left lower quadrant, and does not radiate. Onset: The symptoms/episode began/occurred 3 day(s) ago. Possible causes: unknown, CONSTIPATION. The symptoms are aggravated by nothing. The symptoms are alleviated by nothing. Associated signs and symptoms: The patient has no apparent associated signs or symptoms. Severity of symptoms: in the emergency department the symptoms have improved mildly. The patient has experienced similar episodes in the past, multiple times. Historical: - Allergies: 12:57 Bactrim; bp 12:57 Valium; bp - PMHx: 12:57 Anxiety; GI Bleed; stroke-like episode; Hyperlipidemia; Hypothyroidism; Hypertension; bp Congestive heart failure; Chronic obstructive lung disease; - PSHx: 12:57 pacemaker; bp - Immunization history:: Adult Immunizations up to date. - Infectious Disease History:: Denies. - Social history:: Smoking status: Patient denies any tobacco usage or history of. ROS: 16:18 Constitutional: Negative for fever, chills, and weight loss, Eyes: Negative for injury, shorty pain, redness, and discharge, ENT: Negative for injury, pain, and discharge, Neck: Negative for injury, pain, and swelling, Cardiovascular: Negative for chest pain, palpitations, and edema, Respiratory: Negative for shortness of breath, cough, wheezing, and pleuritic chest pain, Back: Negative for injury and pain, : Negative for injury, bleeding, discharge, and swelling, MS/Extremity: Negative for injury and deformity, Skin: Negative for injury, rash, and discoloration, Neuro: Negative for headache, weakness, numbness, tingling, and seizure, Psych: Negative for depression, anxiety, suicide ideation, homicidal ideation, and hallucinations, Allergy/Immunology: Negative for hives, rash, and allergies, Endocrine: Negative for neck swelling, polydipsia, polyuria, polyphagia, and marked weight changes, Hematologic/Lymphatic: Negative for swollen nodes, abnormal bleeding, and unusual bruising, 16:18 Abdomen/GI: Positive for abdominal pain, constipation, Exam: 16:18 Constitutional: This is a well developed, well nourished patient who is awake, alert, shorty and in no acute distress. Head/Face: Normocephalic, atraumatic. Eyes: Pupils equal round and reactive to light, extra-ocular motions intact. Lids and lashes normal. Conjunctiva and sclera are non-icteric and not injected. Cornea within normal limits. Periorbital areas with no swelling, redness, or edema. ENT: Nares patent. No nasal discharge, no septal abnormalities noted. Tympanic membranes are normal and external auditory canals are clear. Oropharynx with no redness, swelling, or masses, exudates, or evidence of obstruction, uvula midline. Mucous membranes moist. Neck: Trachea midline, no thyromegaly or masses palpated, and no cervical lymphadenopathy. Supple, full range of motion without nuchal rigidity, or vertebral point tenderness. No Meningismus. Chest/axilla: Normal chest wall appearance and motion. Nontender with no deformity. No lesions are appreciated. Cardiovascular: Regular rate and rhythm with a normal S1 and S2. No gallops, murmurs, or rubs. Normal PMI, no JVD. No pulse deficits. Respiratory: Lungs have equal breath sounds bilaterally, clear to auscultation and percussion. No rales, rhonchi or wheezes noted. No increased work of breathing, no retractions or nasal flaring. Back: No spinal tenderness. No costovertebral tenderness. Full range of motion. Female : Normal external genitalia. Skin: Warm, dry with normal turgor. Normal color with no rashes, no lesions, and no evidence of cellulitis. MS/ Extremity: Pulses equal, no cyanosis. Neurovascular intact. Full, normal range of motion., bilateral aka Neuro: Awake and alert, GCS 15, oriented to person, place, time, and situation. Cranial nerves II-XII grossly intact. Motor strength 5/5 in all extremities. Sensory grossly intact. Cerebellar exam normal. Normal gait. Psych: Awake, alert, with orientation to person, place and time. Behavior, mood, and affect are within normal limits. 16:18 ECG was reviewed by the Attending Physician. 16:18 Abdomen/GI: Inspection: abdomen appears normal, Bowel sounds: normal, Palpation: mild abdominal tenderness, in all quadrants, Liver: no appreciated palpable abnormalities, Hernia: not appreciated, Vital Signs: 12:55 BP 112 / 77; Pulse 86; Resp 16; Temp 98; Pulse Ox 97% ; Weight 68.04 kg; Height 5 ft. 1 bp in. ; 14:15 BP 131 / 63; Pulse 90; Resp 16; Pulse Ox 94% on R/A; cm10 16:54 BP 128 / 78; Pulse 91; Resp 15; Pulse Ox 94% ; bp 12:55 Body Mass Index 28.34 (68.04 kg, 154.94 cm) bp MDM: 12:46 Medical Screening Exam initiated shorty 16:20 Differential diagnosis: Nonspecific abd pain, gastritis, pancreatitis, diverticulitis, shorty viral gastroenteritis, gastroenteritis, appendicitis, bowel obstruction, diverticulitis, Hepatitis, non-specific abd pain, Peptic Ulcer Disease. Data reviewed: vital signs, nurses notes, EMS record, lab test result(s), EKG, radiologic studies, CT scan, plain films. Consideration of Admission/Observation Escalation of care including admission/observation considered. I considered the following discharge prescriptions or medication management in the emergency department Medications were administered in the Emergency Department. See MAR. Independent interpretation of the following test(s) in the Emergency Department EKG: See my EKG interpretation above. Test considered but Not performed: Ultrasound NO ABD USG. Care significantly affected by the following chronic conditions: Hypertension, Congestive Heart Failure, Obesity, HIGH LIPIDS, GI BLEED, ANXIETY , VALVE PROBLEMS. 06/28 12:48 Order name: Basic Metabolic Panel; Complete Time: 16: [facility] 06/28 12:48 Order name: CBC with Diff; Complete Time: 16: [facility] 06/28 12:48 Order name: LFT's; Complete Time: 16: [facility] 06/28 12:48 Order name: Magnesium; Complete Time: 16: [facility] 06/28 12:48 Order name: NT PRO-BNP; Complete Time: 16: [facility] 06/28 12:48 Order name: PT-INR; Complete Time: 16: [facility] 06/28 12:48 Order name: Troponin HS; Complete Time: 16: [facility] 06/28 12:48 Order name: Lipase; Complete Time: 16:09 [facility] 06/28 12:48 Order name: Urinalysis w/ reflexes; Complete Time: 16: [facility] 06/28 13:33 Order name: CBC Smear Scan; Complete Time: 16: [facility] 06/28 12:48 Order name: XRAY Chest (1 view); Complete Time: 16:09 [facility] 06/28 13:06 Order name: Abdomen ; Complete Time: 16: [facility] 06/28 12:48 Order name: EKG; Complete Time: 12:48 [facility] 06/28 12:48 Order name: Cardiac monitoring; Complete Time: 13:40 [facility] 06/28 12:48 Order name: EKG - Nurse/Tech; Complete Time: 13:12 [facility] 06/28 12:48 Order name: IV Saline Lock; Complete Time: 13:40 [facility] 06/28 12:48 Order name: Labs collected and sent; Complete Time: 13:40 [facility] 06/28 12:48 Order name: O2 Per Protocol; Complete Time: 13:40 [facility] 06/28 12:48 Order name: O2 Sat Monitoring; Complete Time: 13:40 [facility] EC:18 Rate is 87 beats/min. Rhythm is regular. QRS [place] is Normal. [place] interval is normal. QRS shorty interval is normal. QT interval is normal. No Q waves. T waves are Normal. No ST changes noted. Clinical impression: Abnormal EKG without significant change and No evidence of ischemia. Interpreted by me. Reviewed by me. Administered Medications: 13:48 Drug: NS 0.9% IV 500 ml 500 ml IV at 125 ml/hr once Volume: 500 ml; Route: IV; Rate: bp 125 ml/hr; Site: left antecubital; 16:55 Follow up: IV Status: Completed infusion bp 13:48 Drug: Lactulose PO 30 grams 45 ml PO once Volume: 45 ml; Route: PO; bp 14:45 Follow up: Response: No adverse reaction cm10 13:49 Drug: Ondansetron IVP 4 mg IVP once; over 2 minutes Route: IVP; Site: left antecubital; bp 14:45 Follow up: Response: No adverse reaction cm10 13:49 Drug: Dulcolax TX Suppository 10 mg TX once Route: TX; bp 14:45 Follow up: Response: No adverse reaction cm10 13:49 Drug: NS 0.9% IV 500 ml 500 ml IV at 1 bolus once; to be given as a bolus over 30 bp minutes Volume: 500 ml; Route: IV; Rate: 1 bolus; Site: left antecubital; 16:55 Follow up: IV Status: Completed infusion bp 16:53 Drug: Lactulose PO 30 grams 45 ml PO once Volume: 45 ml; Route: PO; bp 16:53 Follow up: Response: No adverse reaction bp Disposition Summary: 06/28/24 16:27 Discharge Ordered Notes: Location: Home shorty Problem: new shorty Symptoms: have improved shorty Condition: Stable shorty Diagnosis - Vomiting shorty - Abdominal pain, Generalized shorty - Constipation shorty - Constipation, unspecified shorty - COPD/ Chronic obstructive pulmonary disease, unspecified shorty - Presence of cardiac pacemaker shorty Followup: shorty - With: Private Physician - When: 2 - 3 days - Reason: Recheck today's complaints, Continuance of care, Re-evaluation by your physician Followup: shorty - With: Chato Werner MD - When: 2 - 3 days - Reason: Recheck today's complaints, Re-evaluation by your physician Followup: shorty - With: Diamond Garcia MD - When: 2 - 3 days - Reason: Recheck today's complaints, Re-evaluation by your physician Followup: shorty - With: Javi Concepcion MD - When: 2 - 3 days - Reason: Recheck today's complaints, Re-evaluation by your physician Discharge Instructions: - Discharge Summary Sheet shorty - Abdominal Pain, Adult shorty - Chronic Obstructive Pulmonary Disease shorty - Constipation, Adult shorty - Constipation, Adult, [id number] shorty - Chronic Obstructive Pulmonary Disease, [id number] shorty - Abdominal Pain, Adult, Oxqj-[id number]-Rwek shorty Forms: - Medication Reconciliation Form shorty - Antibiotic Education shorty - Prescription Opioid Use shorty - Patient Portal Instructions [facility] - Leadership Thank You Letter [facility] Prescriptions: - Dulcolax (bisacodyl) 10 mg Rectal suppository - insert 1 suppository RECTAL route every 12 hours; 10 suppository; Refills: 0, shorty Product Selection Permitted - Lactulose 10 gram/15 mL Oral solution - take 30 milliliters ORAL route every 12 hours PRN CONSTIPATION; 300 milliliter; shorty Refills: 0, Product Selection Permitted Signatures: Dispatcher [employer] To Sears MD MD shorty Ella, Hema, RN RN bp Makayla Pritchard RN cm10 Corrections: (The following items were deleted from the chart) 13:06 12:49 Abdomen Pelvis W Con+CT.RAD.BRZ ordered. JAY THOMPSON
--- NOTE | 2024-06-28 16:27 | ER ---
Nurse's Notes [facility] Name: Elsa Mckeon Age: 89 yrs Sex: Female : 1935 Arrival Date: 06/28/2024 Time: 12:38 Bed 5 Private MD: Diagnosis: Vomiting;Abdominal pain, Generalized;Constipation;Constipation, unspecified;COPD/ Chronic obstructive pulmonary disease, unspecified;Presence of cardiac pacemaker Presentation: 06/28 12:55 Chief complaint: Patient states: 2 DAYS CONSTIPATION WITH PAINFUL HEMORRHOIDS FROM bp STRAINING. Coronavirus screen: At this time, the client does not indicate any symptoms associated with coronavirus-19. Ebola Screen: No symptoms or risks identified at this time. Initial Sepsis Screen: Does the patient meet any 2 criteria? No. Patient's initial sepsis screen is negative. Does the patient have a suspected source of infection? No. Patient's initial sepsis screen is negative. Risk Assessment: Do you want to hurt yourself or someone else? Patient reports no desire to harm self or others. Onset of symptoms is unknown. 12:55 Method Of Arrival: Wheelchair bp 12:55 Acuity: TATIANA 3 bp Triage Assessment: 12:57 General: Appears in no apparent distress. Behavior is cooperative, appropriate for age, bp anxious. Pain: Complains of pain in abdomen. EENT: No deficits noted. Neuro: No deficits noted. Cardiovascular: No deficits noted. Respiratory: No deficits noted. GI: Reports constipation. : No signs and/or symptoms were reported regarding the genitourinary system. Derm: No deficits noted. Musculoskeletal: No deficits noted. Historical: - Allergies: 12:57 Bactrim; bp 12:57 Valium; bp - PMHx: 12:57 Anxiety; GI Bleed; stroke-like episode; Hyperlipidemia; Hypothyroidism; Hypertension; bp Congestive heart failure; Chronic obstructive lung disease; - PSHx: 12:57 pacemaker; bp - Immunization history:: Adult Immunizations up to date. - Infectious Disease History:: Denies. - Social history:: Smoking status: Patient denies any tobacco usage or history of. Screenin:50 [facility] ED Fall Risk Assessment (Adult) History of falling in the last 3 months, bp including since admission No falls in past 3 months (0 pts) Confusion or Disorientation No (0 pts) Intoxicated or Sedated No (0 pts) Impaired Gait No (0 pts) Mobility Assist Device Used No (0 pt) Altered Elimination No (0 pt) Score/Fall Risk Level 0 - 2 = Low Risk Oriented to surroundings. Abuse screen: Denies threats or abuse. Denies injuries from another. Nutritional screening: No deficits noted. Tuberculosis screening: No symptoms or risk factors identified. Assessment: 13:00 General: Appears in no apparent distress. Behavior is cooperative, appropriate for age, bp anxious. Pain: Complains of pain in buttocks. Neuro: No deficits noted. Cardiovascular: No deficits noted. Respiratory: No deficits noted. GI: Abdomen is non-distended. : No signs and/or symptoms were reported regarding the genitourinary system. EENT: No deficits noted. Derm: No deficits noted. Musculoskeletal: No deficits noted. 13:49 Reassessment: PO CONTRAST COMPLETE, CT NOTIFIED. bp 15:05 Reassessment: Pt noted to have BM. Pt changed and clean linen placed. cm10 15:34 Reassessment: Pt having BM at this time. cm10 Vital Signs: 12:55 BP 112 / 77; Pulse 86; Resp 16; Temp 98; Pulse Ox 97% ; Weight 68.04 kg; Height 5 ft. 1 bp in. ; 14:15 BP 131 / 63; Pulse 90; Resp 16; Pulse Ox 94% on R/A; cm10 16:54 BP 128 / 78; Pulse 91; Resp 15; Pulse Ox 94% ; bp 12:55 Body Mass Index 28.34 (68.04 kg, 154.94 cm) bp ED Course: 12:41 Patient arrived in ED. al6 12:44 Hema Jaramillo, RN is Primary Nurse. bp 12:46 To Bailey MD is Attending Physician. shorty 12:56 Triage completed. bp 12:59 Arm band placed on. bp 13:01 XRAY Chest (1 view) In Process Unspecified. EDMS 13:40 Initial lab(s) drawn, by me, sent to lab. EKG done, by ED staff, reviewed by To Bailey MD. Inserted saline lock: 20 gauge in left antecubital area, using aseptic technique. Blood collected. Flushed with 10 mL NS. 13:50 Patient has correct armband on for positive identification. bp 14:42 Abdomen In Process Unspecified. EDMS 16:26 Chato Werner MD is Referral Physician. [facility] 16:30 Diamond Garcia MD is Referral Physician. [facility] 16:30 Javi Concepcion MD is Referral Physician. shorty 16:54 No provider procedures requiring assistance completed. IV discontinued, intact, bp bleeding controlled, No redness/swelling at site. Pressure dressing applied. Administered Medications: 13:48 Drug: NS 0.9% IV 500 ml 500 ml IV at 125 ml/hr once Volume: 500 ml; Route: IV; Rate: bp 125 ml/hr; Site: left antecubital; 16:55 Follow up: IV Status: Completed infusion bp 13:48 Drug: Lactulose PO 30 grams 45 ml PO once Volume: 45 ml; Route: PO; bp 14:45 Follow up: Response: No adverse reaction cm10 13:49 Drug: Ondansetron IVP 4 mg IVP once; over 2 minutes Route: IVP; Site: left antecubital; bp 14:45 Follow up: Response: No adverse reaction cm10 13:49 Drug: Dulcolax KS Suppository 10 mg KS once Route: KS; bp 14:45 Follow up: Response: No adverse reaction cm10 13:49 Drug: NS 0.9% IV 500 ml 500 ml IV at 1 bolus once; to be given as a bolus over 30 bp minutes Volume: 500 ml; Route: IV; Rate: 1 bolus; Site: left antecubital; 16:55 Follow up: IV Status: Completed infusion bp 16:53 Drug: Lactulose PO 30 grams 45 ml PO once Volume: 45 ml; Route: PO; bp 16:53 Follow up: Response: No adverse reaction bp Outcome: 16:27 Discharge ordered by . shorty 16:54 Discharged to home via wheelchair, with family, bp 16:54 Condition: stable 16:54 Discharge instructions given to patient, family, Instructed on discharge instructions, follow up and referral plans. medication usage, Demonstrated understanding of instructions, follow-up care, medications, Prescriptions given X 2, 16:55 Patient left the ED. bp Signatures: Dispatcher [employer] EDIL To Bailey MD MD cha Peltier, Brian, RN RN bp Makayla Pritchard RN RN cm10 Afshan Royal al6 Antonette Paul kb4
[2024-06-28 19:15] VITALS: TEMP 98
[2024-06-28 19:18] VITALS: O2SAT 94
[2024-06-28 19:20] VITALS: BP 128/78
--- NOTE | 2024-06-29 12:43 | EKG ---
Test Date: 2024-06-28 Test Time: 13:08:35 Winemaker: TYRONE MEASUREMENT RESULTS: Intervals: Rate: 87 SD: 176 QRSD: 242 QT: 532 QTc: 640 Spickard: P: 94 SD: 176 QRS: -70 T: 98 INTERPRETIVE STATEMENTS: Electronic ventricular pacemaker Compared to ECG 02/29/2024 10:45:27 No significant changes Electronically Signed On 06-29-24 12:40:44 ASSEMBLY OPERATOR by Edy Schroeder
== END 2024-06-28 16:55 | disposition home or self-care (01) ==
LOC: ER 12:38
DX: R11.10 Vomiting, unspecified (principal); R10.84 Generalized abdominal pain; K59.00 Constipation, unspecified; J44.9 Chronic obstructive pulmonary disease, unspecified; I10 Essential (primary) hypertension; E03.9 Hypothyroidism, unspecified; E78.5 Hyperlipidemia, unspecified; Z95.0 Presence of cardiac pacemaker
CPT/HCPCS: 96361; 93005; 85025; 81001; 80048; 36415; 83735; 85610; 80076; 84484; 83690; 83880; 74176; 71045; 96374; 99284; J2405; J7030

== ENCOUNTER 2024-07-27 19:56 | Inpatient (IN) | payer OTHER ==
--- OUTSIDE RECORDS SUMMARY | 2024-07-27 19:58 | XMS REPORT | Clinical Summary ---
Author Name Unknown Organization [facility] Address [address] [place] [address] Care Team Providers Care Coffee Machine Technician Name Role Phone Sudheer Benson MD Unavailable [phone] Sharad Uriostegui MD Primary Care Provider [email or web address] Leobardo Ovalle MD Unavailable [phone] King Mccoy MD Unavailable Allergies Active [...] EGD 09/25/2016 - 10/24/2016 CATARACT EXTRACTION, BILATERAL MS EXCISION MALIGNANT LESION F/E/E/N/L 0.5 CM/< 11/08/2016 Right Procedure: EXCISION OF MALIGNANT LESION OF NOSE; Surgeon: Sharad Uriostegui MD; Location: MAIN OR; Service: HN - HEAD & NECK SURGERY MS EXC LESION EYELID W/O CLSR/W/SIMPLE DIR CLOSURE 11/08/2016 Right Procedure: EXCISION OF LESION OF CHEEK; Surgeon: Sharad Uriostegui MD; Location: MAIN OR; Service: HN - HEAD & NECK SURGERY MS ADJT TIS TRNS/REARGMT F/C/C/M/N/A/G/H/F 10SQCM/< 11/12/2016 Right Procedure: REARRANGEMENT OF ADJACENT TISSUE FOR REPAIR OF DEFECT OF NOSE; Surgeon: Leobardo Ovalle MD; Location: [facility]; Service: PLS - PLASTIC SURGERY MS FLAP ISLAND PEDICLE ANATOMIC NAMED AXIAL ARTERY 11/12/2016 Nose/Right Procedure: FORMATION OF ISLAND PEDICLE FLAP GRAFT; Surgeon: Leobardo Ovalle MD; Location: [facility]; Service: PLS - PLASTIC SURGERY MS REMV TISSUE FOR GRAFT OTHR 11/12/2016 Nose/Right Procedure: EAR CARTILAGE GRAFT AND FULL THICKNESS SKIN GRAFT ; Surgeon: Leobardo Ovalel MD; Location: [facility]; Service: PLS - PLASTIC SURGERY THYROIDECTOMY, PARTIAL TONSILLECTOMY HERNIA REPAIR x's 2 right groin OTHER SURGICAL HISTORY ruptured ulcer MS DELAY FLAP/SCTJ FLAP EYELIDS NOSE EARS/LIPS 12/17/2016 [...] Job Start Date Job End Date 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 Pacemaker Insurance GENERIC MEDICARE PART A AND B GENERIC MEDICARE PART A AND B GENERIC Advance Directives * Full Code (Latest Code Status on File) Date Activated Date Inactivated Comments 12/17/2016 7:14 AM 12/17/2016 12:24 PM * Full Code Date Activated Date Inactivated Comments 11/12/2016 1:43 PM 11/12/2016 8:42 PM Care Teams Coffee Machine Technician Relationship Specialty Start Date End Date Sudheer Benson MD [address] [place] [address] PCP - External Referring 10/21/16 Sharad Uriostegui MD [address] [place] [address] [email or web address] PCP - General Head and Neck Surgery 10/22/16 Leobardo Ovalle MD [address] [place] [id number] [email or web address] Consulting Physician Plastic and Reconstructive Surgery 11/04/16 King Mccoy MD [address] [place] [id number] [email or web address] Consulting Physician Internal Medicine 11/02/16
[2024-07-27] MEDS ORDERED: NA CHLORIDE 0.9% 500 ML ONE (20:58)
[2024-07-27 21:00] LABS: Absolute Lymphocytes (CBC) 0.7 K/uL (0.7-4.9); Absolute Monocytes 1.3 K/uL (0.1-1.3); Absolute Neutrophil 7.6 K/uL (1.8-8.0); Basophils % 0.3 % (0-1.3); Eosinophils % 0.1 % (0-4.4); Hemoglobin 7.8 g/dL (12.0-15.0); Lymphocytes % 6.9 % (15.3-44.8); MCH 23.3 pg (27.0-35.0); MCHC 31.1 g/dL (32.0-36.0); MPV 8.1 fL (7.6-11.3); Monocytes % 13.1 % (3.3-12.3); Neutrophils % 79.6 % (41.7-73.7); Nucleated Red Blood Cells % 0.4 % (0-0); Platelets 247 thou/uL (152-406); RBC Red Blood Cell Count 3.34 M/uL (3.86-4.86); Red Cell Distribution Width 19.1 % (12.1-15.2)
[2024-07-27 21:11] LABS: PT Prothrombin Time 16.9 SECONDS (9.4-12.5); Protime INR 1.62
[2024-07-27 21:13] LABS: D-Dimer 1.517 FEUug/mL (0-0.500)
--- NOTE | 2024-07-27 21:13 | RAD REPORT ---
EXAM: Chest Single View HISTORY: DYSPNEA COMPARISON: 06/28/2024 FINDINGS: LUNGS/PLEURA: Hazy bilateral opacities with central vascular prominence. Small pleural effusions susp ected. MEDIASTINUM: The mediastinal silhouette is within normal limits. CARDIAC: Cardiomegaly. UPPER ABDOMEN: No significant abnormality. BONES: No acute abnormality. LINES/TUBES/OTHER: Pacemaker present. IMPRESSION: Findings most consistent with mild pulmonary edema.
[2024-07-27 21:18] LABS: Anion Gap 13.2 mEq/L (5.0-15.0); Potassium 3.2 mEq/L (3.5-5.1)
[2024-07-27 21:22] LABS: Troponin High Sensitivity 67.9 pg/mL (<58.9)
[2024-07-27 22:43] LABS: Arterial Blood Carboxyhemoglob 2.4 % (0-1.5); Blood Gas Oxyhemoglobin 90.2 % (94-97); Blood Gas THB 7.9 g/dl (12-18); Blood O2 Saturation 94.2 % (92-98.5)
[2024-07-28] MEDS ORDERED: ALBUTEROL 2.5 MG/3 ML NEB SOL NEB PRN ×2 (00:34→07:27)
[2024-07-28] MEDS: FUROSEMIDE 40 MG/4 ML VIAL IV SCH (00:34)
[2024-07-28] MEDS ORDERED: IPRATROPIUM BROM 0.5MG/2.5ML NEB PRN (00:34)
--- NOTE | 2024-07-28 00:52 | P.HP ---
Certification for Inpatient Patient admitted to: Inpatient With expected LOS: >2 Midnights Practitioner: I am a practitioner with admitting privileges, knowledge of patient current condition, hospital course, and medical plan of care. Services: Services provided to patient in accordance with Admission requirements found in Title 42 Section 412.3 of the Code of Federal Regulations Patient History Date of Service: 07/28/24 Reason for admission: Decompensated CHF History of Present Illness: Patient is a 89-year-old female who was brought in by family due to concern for environmental exposure. During a routine visit by son, there was a smell of gas in the house. It is unknown how long patient was exposed to the gas. Patient was unable to smell anything abnormal. They have a propane tank and suspects that the valve might have been turned on by accident. Patient was having mild shortness of breath on site. Her shortness of breath has been ongoing for a few days. She had a televisit during which her Lasix dose was doubled. Workup in the ER revealed pulmonary edema on chest x-ray. During my evaluation, patient was more alert and awake. As per chart review, she has a history of diastolic CHF with severe mitral stenosis. She has nonpitting edema of both lower extremities. Patient workup revealed a creatinine 1.6, BNP of more than 34,000 and elevated troponin at 67.9. Allergies diazepam [From Valium] Allergy (Verified 05/27/21 08:13) Hyperactive sulfamethoxazole [From Bactrim] Allergy (Verified 05/27/21 08:13) Hives trimethoprim [From Bactrim] Allergy (Verified 05/27/21 08:13) Hives Home Medications: Alprazolam [Xanax] 0.5 mg PO DAILY PRN 07/18/20 Metoprolol Succinate 50 mg PO DAILY 07/18/20 Mirtazapine [Remeron*] 15 mg PO BEDTIME 07/18/20 Pantoprazole [Protonix Tab*] 40 mg PO DAILY 07/18/20 Tizanidine [Zanaflex*] 4 mg PO BEDTIME 07/18/20 Levothyroxine [Synthroid*] 75 mcg PO [id number] 05/26/21 Venlafaxine HCl [Venlafaxine HCl ER] 75 mg PO DAILY 12/20/21 Vit A/Vit C/Vit E/Zinc/Copper [Preservision Areds Softgel] 1 tab PO BEDTIME 12/20/21 Curaphen 1 cap PO DAILY 02/29/24 Furosemide [Lasix*] 40 mg PO DAILY 02/29/24 Hydroxyzine HCl [Atarax] 10 mg PO DIRECTED PRN 02/29/24 Mitochondrial Energy Booster 1 tab PO DAILY 02/29/24 Spironolactone [Aldactone*] 25 mg PO DAILY 02/29/24 Sucralfate [Carafate] 1 gm PO DAILY 02/29/24 predniSONE [Prednisone*] 20 mg PO DAILY 02/29/24 Sertraline [Zoloft*] 25 mg PO DAILY #30 tab 03/01/24 - Past Medical/Surgical History Diabetic: No -: emphysema -: arthritis -: hemorrhoids -: pacemaker Dual chamber RV/RA -: stomach ulcers -: melanoma -: right finger amputation -: HTN -: HYpothyroid -: hernia repair -: thyroid removal -: tonsillectomy -: Pacemaker placement - Family History Mother -: Cancer Notes: Colon Cancer - Social History Alcohol use: No CD- Drugs: No Caffeine use: No Physical Examination - Physical Exam General: In no apparent distress, Other (Frail) HEENT: Atraumatic, Normocephalic Respiratory: Crackles/rales Cardiovascular: Normal S1 S2, Edema, Diastolic murmur Neurological: Normal speech - Studies Laboratory Data (last 24 hrs) 07/27/24 07/27/24 07/27/24 20:45 20:45 20:45 WBC 9.60 Hgb 7.8 L Hct 25.0 L Plt Count 247 PT 16.9 H INR 1.62 Sodium 136 Potassium 3.2 L BUN 55 H Creatinine 1.61 H Glucose 140 H Assessment and Plan - Problems (Diagnosis) (1) Acute on chronic diastolic heart failure Current Visit: No Status: Acute (2) Elevated troponin Current Visit: No Status: Acute (3) Mitral stenosis Current Visit: No Status: Acute (4) NSTEMI (non-ST elevated myocardial infarction) Current Visit: No Status: Acute (5) CAD (coronary artery disease) Current Visit: No Status: Chronic (6) GERD (gastroesophageal reflux disease) Current Visit: No Status: Chronic (7) Hyperlipidemia Current Visit: No Status: Chronic Qualifiers: (8) Hypertension Current Visit: No Status: Chronic (9) Hypothyroidism Current Visit: No Status: Chronic Qualifiers: - Plan Assessment This is a 89-year-old female brought in for evaluation of of a environmental gas exposure with propane. Patient remained in the area for unknown amount of time, was unable to smell the gas. She is on room air in the ER. Chest x-ray shows pulmonary edema, she has a BNP of more than 34,000 and elevated troponin of 67.9. She has mild shortness of breath. She is being admitted for decompensated CHF Acute on chronic diastolic CHF Severe mitral stenosis Severe aortic stenosis Severe pulmonary hypertension BERNARDO Hypokalemia Elevated troponin Generalized weakness Plan: Will admit inpatient with telemetry Start patient on scheduled IV Lasix for decompensated CHF Potassium replacement Check magnesium and phosphorus Monitor ins and out Repeat 2D echo Cardiology has been consulted Monitor renal function closely Patient is DNR - Advance Directives Does patient have a Living Will: No Does patient have a Durable POA for Healthcare: No
[2024-07-28] MEDS ORDERED: POTASSIUM CL 40 MEQ in NA CHLORIDE 0.9% 500 ML IV SCH (01:00)
[2024-07-28] MEDS: KCL 20 MEQ/100 mL IVPB 100 ML IV SCH (01:00)
[2024-07-28] MEDS: HEPARIN 5000 UNIT/ML 1 ML VIAL SQ SCH (01:00)
--- NOTE | 2024-07-28 01:35 | ER ---
Nurse's Notes [facility] Name: Elsa Mckeon Age: 89 yrs Sex: Female : 1935 Arrival Date: 07/27/2024 Time: 19:56 Bed 19 Private MD: Diagnosis: Chronic combined systolic (congestive) and diastolic (congestive) heart failure;Shortness of breath Presentation: 07/27 19:55 Chief complaint: EMS states: smelled gas, o2 sats on 86% on room air. kj2 19:55 Method Of Arrival: EMS: [facility] kj2 19:55 Coronavirus screen: Client denies travel out of the [place] in the last 14 days. Ebola kj2 Screen: No symptoms or risks identified at this time. Initial Sepsis Screen: Does the patient meet any 2 criteria? No. Patient's initial sepsis screen is negative. Does the patient have a suspected source of infection? No. Patient's initial sepsis screen is negative. Risk Assessment: Do you want to hurt yourself or someone else? Patient reports no desire to harm self or others. Onset of symptoms was July 27, 2024. 19:55 Acuity: TATIANA 3 kj2 Triage Assessment: 19:55 General: Appears in no apparent distress. Behavior is calm, cooperative. Pain: Denies kj2 pain. Neuro: Level of Consciousness is awake, alert, Oriented to person, place, time, situation. Cardiovascular: Patient's skin is warm and dry. Respiratory: Airway is patent Respiratory effort is even, unlabored. GI: No signs and/or symptoms were reported involving the gastrointestinal system. : No signs and/or symptoms were reported regarding the genitourinary system. Historical: - Allergies: 20:34 Bactrim; kj2 20:34 Valium; kj2 - Immunization history:: Adult Immunizations unknown. - Infectious Disease History:: Denies. - Social history:: Smoking status: unknown. Screenin:55 [facility] ED Fall Risk Assessment (Adult) History of falling in the last 3 months, kj2 including since admission No falls in past 3 months (0 pts) Confusion or Disorientation No (0 pts) Intoxicated or Sedated No (0 pts) Impaired Gait No (0 pts) Mobility Assist Device Used No (0 pt) Altered Elimination No (0 pt) Score/Fall Risk Level 0 - 2 = Low Risk Maintained a safe environment, Hourly rounding (assess needs \T\ fall precautionary measures) done. Abuse screen: Denies threats or abuse. Denies injuries from another. Nutritional screening: No deficits noted. Tuberculosis screening: No symptoms or risk factors identified. Assessment: 19:55 General: see triage assessment. kj2 21:03 Reassessment: Patient appears in no apparent distress at this time. Patient and/or kj2 family updated on plan of care and expected duration. Pain level reassessed. Patient is alert, oriented x 3, equal unlabored respirations, skin warm/dry/pink. 22:00 Reassessment: Patient appears in no apparent distress at this time. Patient and/or kj2 family updated on plan of care and expected duration. Pain level reassessed. Patient is alert, oriented x 3, equal unlabored respirations, skin warm/dry/pink. 22:57 Reassessment: Patient appears in no apparent distress at this time. Patient and/or kj2 family updated on plan of care and expected duration. Pain level reassessed. Patient is alert, oriented x 3, equal unlabored respirations, skin warm/dry/pink. 23:58 Reassessment: Patient appears in no apparent distress at this time. Patient and/or kj2 family updated on plan of care and expected duration. Pain level reassessed. Patient is alert, oriented x 3, equal unlabored respirations, skin warm/dry/pink. 07/28 00:50 General: Appears in no apparent distress. comfortable, Behavior is calm, cooperative. al5 Pain: Complains of pain in neck and posterior aspect of right shoulder Pain began chronic. Neuro: Level of Consciousness is awake, alert, obeys commands, Oriented to person, place, time, situation. Cardiovascular: Capillary refill < 3 seconds Patient's skin is warm and dry. Respiratory: Airway is patent Respiratory effort is even, unlabored, Respiratory pattern is regular, symmetrical. GI: No signs and/or symptoms were reported involving the gastrointestinal system. : No signs and/or symptoms were reported regarding the genitourinary system. EENT: No signs and/or symptoms were reported regarding the EENT system. Derm: Skin is intact, is healthy with good turgor, Skin is pink, warm \T\ dry. normal. Musculoskeletal: No signs and/or symptoms reported regarding the musculoskeletal system. 02:00 Reassessment: Patient appears in no apparent distress at this time. No changes from al5 previously documented assessment. Patient and/or family updated on plan of care and expected duration. Pain level reassessed. Patient is alert, oriented x 3, equal unlabored respirations, skin warm/dry/pink. patient resting comfortably at this time. 03:00 Reassessment: Patient appears in no apparent distress at this time. No changes from al5 previously documented assessment. Patient and/or family updated on plan of care and expected duration. Pain level reassessed. Patient is alert, oriented x 3, equal unlabored respirations, skin warm/dry/pink. patient resting comfortably at this time. Vital Signs: 07/27 19:55 BP 90 / 48; Pulse 66; Resp 18; Temp 97.8; Pulse Ox 98% on R/A; kj2 19:55 Weight 66.22 kg; Height 5 ft. 2 in. ; kj2 21:04 BP 93 / 56; Pulse 59; Resp 18; Temp 97.9; Pulse Ox 99% on R/A; kj2 22:00 BP 91 / 54; Pulse 63; Resp 18; Pulse Ox 96% on R/A; kj2 22:57 BP 117 / 52; Pulse 69; Resp 20; Pulse Ox 96% on R/A; kj2 23:59 BP 90 / 48; Pulse 67; Resp 18; Pulse Ox 98% on R/A; kj2 07/28 00:00 BP 111 / 43; Pulse 68; Resp 16; Pulse Ox 97% on R/A; al5 00:30 BP 114 / 55; Pulse 70; Resp 16; Pulse Ox 98% on R/A; al5 01:00 BP 107 / 62; Pulse 66; Resp 17; Pulse Ox 98% on R/A; al5 01:30 BP 115 / 68; Pulse 71; Resp 19; Pulse Ox 100% on R/A; al5 02:00 BP 109 / 54; Pulse 66; Resp 19; Pulse Ox 98% on R/A; al5 02:30 BP 106 / 53; Pulse 61; Resp 19; Pulse Ox 99% on R/A; al5 03:00 BP 112 / 53; Pulse 65; Resp 16; Pulse Ox 98% on R/A; al5 07/27 19:55 Body Mass Index 26.70 (66.22 kg, 157.48 cm) kj2 ED Course: 07/27 19:55 Arm band placed on Patient placed in an exam room, on a stretcher. kj2 19:55 Patient has correct armband on for positive identification. Bed in low position. Call kj2 light in reach. Provided Education on: call light. 20:09 Patient arrived in ED. lg3 20:12 Fredrick Green MD is Attending Physician. bo1 20:26 Cindy Holland, BLAISE is Primary Nurse. kj2 20:34 Triage completed. kj2 20:50 Inserted saline lock: 22 gauge in right antecubital area, using aseptic technique. kj2 Blood collected. Flushed with 10 mL NS. 21:09 XRAY Chest (1 view) In Process Unspecified. EDMS 21:41 EKG done, by ED staff, reviewed by Fredrick Green MD. sa1 22:53 Assisted to bedside commode. kj2 07/28 00:22 Report given to Mirtha Reid RN. kj2 01:34 Prince Luna MD is Hospitalizing Provider. bo1 01:42 Assisted to bedside commode. sa1 03:09 No provider procedures requiring assistance completed. Patient admitted, IV remains in al5 place. Administered Medications: 07/27 21:03 Drug: NS 0.9% IV 500 ml 500 ml IV at 1 bolus once; to be given as a bolus over 30 kj2 minutes Volume: 500 ml; Route: IV; Rate: 1 bolus; Site: right antecubital; 22:57 Follow up: IV Status: Completed infusion; IV Intake: 500ml kj2 Medication: 20:36 VIS not applicable for this client. kj2 Intake: 22:57 IV: 500ml; Total: 500ml. kj2 Outcome: 07/28 01:35 Decision to Hospitalize by Provider. bo1 03:28 Admitted to Med/surg room 430, al5 03:28 Condition: stable 03:28 Instructed on the need for admit, 03:28 Patient left the ED. al5 Signatures: Dispatcher [employer] EDMS Lacy Peace RN RN lg3 Fredrick Green MD MD bo1 Mirtha Ambrosio RN RN al5 Sultan Bradley sa1 Cindy Holland RN RN kj2 Corrections: (The following items were deleted from the chart) 03:08 00:51 BP 114 / 55; Pulse 70bpm; Resp 16bpm; Pulse Ox 98% RA; al5 al5
--- NOTE | 2024-07-28 01:35 | EDPHYS ---
Physician Documentation [facility] Name: Elsa Mckeon Age: 89 yrs Sex: Female : 1935 Arrival Date: 07/27/2024 Time: 19:56 Bed 19 Private MD: ED Physician Fredrick Green HPI: 07/27 21:04 This 89 yrs old Female presents to ER via EMS with complaints of smelled gas. bo1 21:04 Pt states she has "SOB." Gas smell at the house per the daughter. Fire dept confirmed bo1 natural gas exposure and thoughts are "gas" exposure.. Onset: The symptoms/episode began/occurred gradually, today. Severity of symptoms: At their worst the symptoms were mild. Pt has had SOB in the past, unrelated to possible "gas" exposure. Per daughter, the stove burner was "on." And not lit or burning.. Historical: - Allergies: 20:34 Bactrim; kj2 20:34 Valium; kj2 - Immunization history:: Adult Immunizations unknown. - Infectious Disease History:: Denies. - Social history:: Smoking status: unknown. ROS: 21:07 Constitutional: Negative for fever, chills, and weight loss bo1 21:07 Constitutional: Negative for fever, 21:07 Cardiovascular: Negative for chest pain, palpitations, 21:07 Respiratory: Positive for shortness of breath, 21:07 Abdomen/GI: Negative for abdominal pain, nausea and vomiting, 21:07 MS/extremity: Positive for swelling, 21:07 Skin: Negative for erythema, rash, 21:07 Neuro: Negative for headache, 21:07 All other systems are negative, Exam: 21:08 Constitutional: This is a well developed, well nourished patient who is awake, alert, bo1 and in no acute distress. 21:08 Constitutional: The patient appears alert, awake, comfortable, non-toxic, frail, 21:08 Neck: External neck: is normal, no acute changes, 21:08 Cardiovascular: Rate: bradycardic, Rhythm: regular, Pulses: no pulse deficits are appreciated, 21:08 Respiratory: the patient does not display signs of respiratory distress, Respirations: normal, no acute changes, Breath sounds: are clear throughout, 21:08 Abdomen/GI: Inspection: abdomen appears normal, Palpation: abdomen is soft and non-tender, 21:08 Musculoskeletal/extremity: DVT Exam: no pain, no tenderness, negative Homans' sign noted on exam, swelling, that is mild, of the right leg, of the left leg, Mild non-pitting edema BLE, 21:08 Skin: no rash present. Turgor: tenting is noted, 22:06 ECG was reviewed by the Attending Physician. bo1 Vital Signs: 19:55 BP 90 / 48; Pulse 66; Resp 18; Temp 97.8; Pulse Ox 98% on R/A; kj2 19:55 Weight 66.22 kg; Height 5 ft. 2 in. ; kj2 21:04 BP 93 / 56; Pulse 59; Resp 18; Temp 97.9; Pulse Ox 99% on R/A; kj2 22:00 BP 91 / 54; Pulse 63; Resp 18; Pulse Ox 96% on R/A; kj2 22:57 BP 117 / 52; Pulse 69; Resp 20; Pulse Ox 96% on R/A; kj2 23:59 BP 90 / 48; Pulse 67; Resp 18; Pulse Ox 98% on R/A; kj2 07/28 00:00 BP 111 / 43; Pulse 68; Resp 16; Pulse Ox 97% on R/A; al5 00:30 BP 114 / 55; Pulse 70; Resp 16; Pulse Ox 98% on R/A; al5 01:00 BP 107 / 62; Pulse 66; Resp 17; Pulse Ox 98% on R/A; al5 01:30 BP 115 / 68; Pulse 71; Resp 19; Pulse Ox 100% on R/A; al5 02:00 BP 109 / 54; Pulse 66; Resp 19; Pulse Ox 98% on R/A; al5 02:30 BP 106 / 53; Pulse 61; Resp 19; Pulse Ox 99% on R/A; al5 03:00 BP 112 / 53; Pulse 65; Resp 16; Pulse Ox 98% on R/A; al5 07/27 19:55 Body Mass Index 26.70 (66.22 kg, 157.48 cm) kj2 MDM: 07/27 20:12 Medical Screening Exam initiated bo1 07/28 01:35 Differential Diagnosis CHF vs natural gas exposure, edema from the CHF. Data reviewed: bo1 vital signs, lab test result(s), EKG, radiologic studies, plain films. Consideration of Admission/Observation Patient was admitted/placed on observation. Management of patient was discussed with the following: Hospitalist: Dr Shady CAMACHO. ED course: Pt's labs and xray was reviewed with Dr Shady CAMACHO for obs admit to tele. 07/27 20:16 Order name: Basic Metabolic Panel; Complete Time: 22:08 07/27 20:16 Order name: CBC with Diff; Complete Time: 21:18 07/27 20:16 Order name: D-Dimer; Complete Time: 21:18 07/27 20:16 Order name: NT PRO-BNP; Complete Time: 22:08 07/27 20:16 Order name: PT-INR; Complete Time: 21:18 07/27 20:16 Order name: Troponin HS; Complete Time: 22:08 07/27 20:53 Order name: ABG; Complete Time: 00:05 bo07/28 00:39 Order name: Magnesium EDMS 07/28 00:39 Order name: Phosphorus EDMS 07/28 00:39 Order name: Basic Metabolic Panel EDMS 07/28 00:39 Order name: Basic Metabolic Panel EDMS 07/28 00:39 Order name: CBC with Automated Diff EDMS 07/28 00:39 Order name: CBC with Automated Diff EDMS 07/28 00:39 Order name: Lipid Profile EDMS 07/28 00:39 Order name: Lipid Profile EDMS 07/28 00:39 Order name: Troponin High Sensitivity EDMS 07/28 00:39 Order name: Troponin High Sensitivity EDMS 07/28 00:39 Order name: Troponin High Sensitivity EDMS 07/28 00:39 Order name: Troponin High Sensitivity EDMS 07/28 00:39 Order name: Troponin High Sensitivity EDMS 07/27 20:16 Order name: XRAY Chest (1 view); Complete Time: 21:18 bo07/28 00:40 Order name: Echo with Doppler EDWI 07/27 20:16 Order name: EKG; Complete Time: 20:16 07/27 20:16 Order name: Cardiac monitoring; Complete Time: 21:54 bo07/27 20:16 Order name: EKG - Nurse/Tech; Complete Time: 21:54 07/27 20:16 Order name: IV Saline Lock; Complete Time: 22:09 bo1 07/27 20:16 Order name: Labs collected and sent; Complete Time: 21:18 bo1 07/27 20:16 Order name: O2 Per Protocol; Complete Time: 22:09 bo1 07/27 20:16 Order name: O2 Sat Monitoring; Complete Time: 22: bo EC/31 22:06 Rate is 72 beats/min. Clinical impression: Electronic pacemaker rhythm - ventricular. bo1 Interpreted by me. Reviewed by me. Administered Medications: 21:03 Drug: NS 0.9% IV 500 ml 500 ml IV at 1 bolus once; to be given as a bolus over 30 kj2 minutes Volume: 500 ml; Route: IV; Rate: 1 bolus; Site: right antecubital; 22:57 Follow up: IV Status: Completed infusion; IV Intake: 500ml kj2 Disposition Summary: 07/28/24 01:35 Hospitalization Ordered Notes: Hospitalization Status: Observation bo1 Provider: Prince Cheryl [facility] Location: Telemetry/MedSurg (observation) bo1 Condition: Fair bo1 Problem: an acute exacerbation bo1 Symptoms: are unchanged bo1 Bed/Room Type: Standard [facility] Room Assignment: 430(07/28/24 01:45) Diagnosis - Chronic combined systolic (congestive) and diastolic (congestive) heart failure bo1 - Shortness of breath bo1 Forms: - Medication Reconciliation Form bo1 - SBAR form bo1 - Leadership Thank You Letter bo1 Signatures: Dispatcher [employer] Fredrick Saldivar MD MD bo1 Cindy Holland RN RN kj2 Blanca Miguel Corrections: (The following items were deleted from the chart) 07/28 01:45 01:35 bo1 hw
[2024-07-28 03:50] VITALS: BMI 26.6
[2024-07-28 07:22] LABS: Magnesium 2.1 mg/dL (1.6-2.4); Phosphorus 3.4 mg/dL (2.5-4.9)
--- NOTE | 2024-07-28 14:33 | P.PN ---
Date of Service: 07/28/24 I am providing Tele-Medicine coverage today. Ms. Mckeon's d-dimer has returned elevated at 1.517 and troponin trend is 60.1 -> 62.7. Will request TTE, bilateral lower extremity Doppler, and VQ scan. On-site physician, Dr. Concepcion, will evaluate her in the morning. Lion Solis M.D.
--- NOTE | 2024-07-28 16:06 | RAD REPORT ---
EXAMINATION: US Extrem Venous W Compress Donta CLINICAL INDICATION: [facility] MAIN elevated d-dimer Y TECHNIQUE: Complete bilateral duplex sonography of the BILATERAL lower extremity veins was performed. The examination included compression for vein patency, color Doppler imaging and flow augmentation in response to distal compression of the distal external iliac, common femoral, femoral, popliteal, t ibial, and great and small saphenous veins. COMPARISON: No prior exam. FINDINGS: Duplex sonography testing of the veins of the BILATERAL lower extremity was performed. Color flow em ging shows all veins to be compressible with [id number] color filling. Pulsatile and phasic flow is present within all lower extremity deep and superficial veins examined. IMPRESSION: There is no deep vein or superficial vein thrombosis.
[2024-07-28] MEDS: DOCUSATE NA 100 MG CAP PO PRN (22:28)
[2024-07-28] MEDS: TIZANIDINE 4 MG TABLET PO SCH (22:28)
[2024-07-29 07:10] LABS: Absolute Lymphocytes (CBC) 0.9 K/uL (0.7-4.9); Absolute Monocytes 0.7 K/uL (0.1-1.3); Absolute Neutrophil 5.1 K/uL (1.8-8.0); Basophils % 0.2 % (0-1.3); Eosinophils % 0.6 % (0-4.4); Hematocrit 25.4 % (36.0-45.0); Hemoglobin 7.6 g/dL (12.0-15.0); Lymphocytes % 12.9 % (15.3-44.8); MCH 22.7 pg (27.0-35.0); MCHC 30.1 g/dL (32.0-36.0); MCV 75.4 fL (80-100); MPV 8.8 fL (7.6-11.3); Monocytes % 10.9 % (3.3-12.3); Neutrophils % 75.4 % (41.7-73.7); Nucleated Red Blood Cells % 0.3 % (0-0); Platelets 224 thou/uL (152-406); RBC Red Blood Cell Count 3.37 M/uL (3.86-4.86); Red Cell Distribution Width 19.2 % (12.1-15.2)
[2024-07-29 07:36] LABS: Anion Gap 9.2 mEq/L (5.0-15.0); Potassium 3.2 mEq/L (3.5-5.1)
--- NOTE | 2024-07-29 11:14 | P.PN ---
Subjective Date of Service: 07/29/24 Chief Complaint: Decompensated CHF No change in patient's condition she is send continues to remain very dyspneic is not able to recollect the events that precipitated her admission and apparently she was exposed to some butane Review of Systems is unable to be obtained Physical Examination - Vital Signs Temperature: 97.8 F Blood Pressure: 115/55 Pulse: 81 Respirations: 16 Pulse Ox (%): 97 - Physical Exam General: Alert, Oriented x1 Respiratory: Clear to auscultation bilaterally, Diminished Cardiovascular: No edema, Regular rate/rhythm, Normal S1 S2, Systolic murmur Gastrointestinal: Normal bowel sounds, Soft and benign Assessment And Plan - Current Problems (Diagnosis) (1) Acute on chronic diastolic heart failure Current Visit: No Status: Acute Plan: Patient admitted with dyspnea most likely acute on chronic heart failure she has left ventricular hypertrophy diastolic dysfunction severe mitral stenosis secondary pulmonary hypertension states that she is very dyspneic and has a mild microcytic anemia non-STEMI patient is on spironolactone at home fully anticoagulated labs ordered for iron deficiency has BNP is 34,000 continue with diuretics cancel VQ scan CT pulmonary angiogram if her creatinine improves fully anticoagulated patient was on Wixela and low-dose prednisone at home
[2024-07-29] MEDS: ENOXAPARIN 80 MG/0.8 ML SQ SCH (12:32)
[2024-07-29 12:35] LABS: Ferritin 17.2 ng/mL (8-252)
--- NOTE | 2024-07-29 12:52 | P.CNS ---
Date of Consult: 07/29/24 Chief Complaint: Decompensated CHF History of Present Illness: Patient with PMH of DD, Severe and MS, severe pulmonary HTN, presented with worsening SOB and lower extremities edema for the last week, also report some gas exposure, denies chest pain, no palpitations, no syncope. Allergies diazepam [From Valium] Allergy (Verified 05/27/21 08:13) Hyperactive sulfamethoxazole [From Bactrim] Allergy (Verified 05/27/21 08:13) Hives trimethoprim [From Bactrim] Allergy (Verified 05/27/21 08:13) Hives Home medications list reviewed: Yes Home Medications: Alprazolam [Xanax] 0.5 mg PO DAILY PRN 07/18/20 Metoprolol Succinate 50 mg PO DAILY 07/18/20 Mirtazapine [Remeron*] 15 mg PO BEDTIME 07/18/20 Pantoprazole [Protonix Tab*] 40 mg PO DAILY 07/18/20 Tizanidine [Zanaflex*] 4 mg PO BEDTIME 07/18/20 Levothyroxine [Synthroid*] 75 mcg PO [id number] 05/26/21 Venlafaxine HCl [Venlafaxine HCl ER] 75 mg PO DAILY 12/20/21 Vit A/Vit C/Vit E/Zinc/Copper [Preservision Areds Softgel] 1 tab PO BEDTIME 11/26 12/16 Curaphen 1 cap PO DAILY 02/29/24 Furosemide [Lasix*] 40 mg PO DAILY 02/29/24 Hydroxyzine HCl [Atarax] 10 mg PO DIRECTED PRN 02/29/24 Mitochondrial Energy Booster 1 tab PO DAILY 02/29/24 Spironolactone [Aldactone*] 25 mg PO DAILY 02/29/24 predniSONE [Prednisone*] 5 mg PO DAILY 02/29/24 ARIPiprazole [Aripiprazole] 1 tab PO DAILY 07/28/24 - Past Medical/Surgical History Diabetic: No -: emphysema -: arthritis -: hemorrhoids -: pacemaker Dual chamber RV/RA -: stomach ulcers -: melanoma -: right finger amputation -: HTN -: HYpothyroid -: hernia repair -: thyroid removal -: tonsillectomy -: Pacemaker placement - Family History Mother Medical History: Cancer Notes: Colon Cancer - Social History Smoking Status: Unknown if ever smoked Alcohol use: No CD- Drugs: No Caffeine use: No Review of Systems 10-point ROS is otherwise unremarkable Physical Examination Temp Pulse Resp BP Pulse Ox 97.8 F 82 18 119/56 L 99 07/29/24 12:00 07/29/24 12:00 07/29/24 12:00 07/29/24 12:07/29/24 12:00 General: Alert, In no apparent distress HEENT: Atraumatic, PERRLA, Mucous membr. moist/pink, EOMI, Sclerae nonicteric Neck: Supple, 2+ carotid pulse no bruit, No LAD, Without JVD or thyroid abnormality Respiratory: Clear to auscultation bilaterally, Normal air movement Cardiovascular: Regular rate/rhythm, Normal S1 S2 Gastrointestinal: Normal bowel sounds, No tenderness Musculoskeletal: No tenderness Integumentary: No rashes Neurological: Normal gait, Normal speech, Normal tone, Normal affect Lymphatics: No axilla or inguinal lymphadenopathy - Problems (1) Acute on chronic diastolic heart failure Current Visit: No Status: Acute Plan: recommend increasing Lasix to 40 mg IV BID Continue Aldactone 25 mg daily continue Toprol XL 50 mg daily monitor input and output and electrolytes (2) Mitral stenosis Current Visit: No Status: Acute Plan: Patient is not a surgical candidate and not interested in any intervention continue medical treatment.
[2024-07-29] MEDS: ARFORMOTEROL TARTRATE 15 MCG/2 ML VIAL.NEB NEB SCH (19:00)
[2024-07-29] MEDS: MELATONIN 3 MG TABLET PO PRN (21:51)
[2024-07-29] MEDS: POLYETHYL GLY 3350 17 GM/DOSE PO PRN (21:51)
[2024-07-30] MEDS: BISACODYL 10 MG RECTAL SUPP PR PRN (00:33)
--- NOTE | 2024-07-30 08:52 | P.PN ---
Subjective Date of Service: 07/30/24 Chief Complaint: Decompensated CHF Subjective: No new changes, No C/O voiced, Tolerating diet, Ambulating, Improving Review of Systems 10-point ROS is otherwise unremarkable Physical Examination - Vital Signs Temperature: 97.8 F Blood Pressure: 141/72 Pulse: 92 Respirations: 18 Pulse Ox (%): 97 - Physical Exam General: Alert, In no apparent distress HEENT: Atraumatic, PERRLA, EOMI Neck: Supple, JVD not distended Respiratory: Clear to auscultation bilaterally, Normal air movement Cardiovascular: Regular rate/rhythm, Normal S1 S2 Gastrointestinal: Normal bowel sounds, No tenderness Musculoskeletal: No tenderness Integumentary: No rashes Neurological: Normal speech, Normal tone, Normal affect Lymphatics: No axilla or inguinal lymphadenopathy - Studies Medications List Reviewed: Yes Assessment And Plan - Current Problems (Diagnosis) (1) Acute on chronic diastolic heart failure Current Visit: No Status: Acute Plan: recommend increasing Lasix to 40 mg IV BID Continue Aldactone 25 mg daily continue Toprol XL 50 mg daily monitor input and output and electrolytes (2) Mitral stenosis Current Visit: No Status: Acute Plan: Patient is not a surgical candidate and not interested in any intervention continue medical treatment.
[2024-07-30] MEDS ORDERED: FUROSEMIDE 40 MG/4 ML VIAL IV SCH (09:00)
[2024-07-30] MEDS ORDERED: ENOXAPARIN 80 MG/0.8 ML SQ SCH (09:00)
[2024-07-30] MEDS ORDERED: FUROSEMIDE 40 MG TABLET PO SCH (09:00)
[2024-07-30] MEDS: DOCUSATE NA 100 MG CAP PO SCH (09:37)
[2024-07-30] MEDS: FUROSEMIDE 40 MG/4 ML VIAL IV SCH (09:37)
[2024-07-30] MEDS: ONDANSETRON 4 MG/2 ML VIAL IV PRN (10:23)
[2024-07-30] MEDS ORDERED: SODIUM CHLORIDE 0.9% 10ML INJ IV PRN (10:40)
[2024-07-30] MEDS: PANTOPRAZOLE 40 MG INJ IVP ONE (11:15)
[2024-07-30] MEDS: SOD FERRIC GLUC COMPLX/SUCROSE 125 MG in NA CHLORIDE 0.9% 100 ML IV SCH (11:15)
--- NOTE | 2024-07-30 12:25 | RAD REPORT ---
EXAMINATION: CTA CHEST PE CLINICAL INDICATION: Chest pain TECHNIQUE: 100 cc 370 Isovue administered intravenously. This examination was performed according to an angiographic protocol with 3D post-processing. This involves 3D reconstructions, MIPs, volume rendered images and/or shaded surface rendering. One or more of the following dose reduction techniqu es were used: Automated exposure control, adjustment of the mA and/or kV according to patient size, and/or iterative reconstruction. Unless otherwise specified, incidental findings do not require dedic ated imaging follow-up. [id number]. COMPARISON: 2023 FINDINGS: A pulmonary embolus is not seen. An aortic aneurysm not noted. Small right pleural effusion. Moderate to marked cardiomegaly . Distended IVC and hepatic veins. No pericardial effusion. Mild bilateral pulmonary opacities IMPRESSION: No evidence of a pulmonary embolism Mild pulmonary edema
--- NOTE | 2024-07-30 13:13 | ECHO ---
HEIGHT: 5 ft 2 in WEIGHT: 146 lb 0 oz DATE OF STUDY: 07/30/[address]: Prince Amee Luna MD 2-DIMENSIONAL: YES M.MODE: YES DOPPLER: YES COLOR FLOW: YES TDS: PORTABLE: YES DEFINITY: BUBBLE STUDY: DIAGNOSIS: CONGESTIVE HEART FAILURE CARDIAC HISTORY: CATHERIZATION: NO SURGERY: NO PROSTHETIC VALVE: NO PACEMAKER: YES MEASUREMENTS (cm) DIASTOLIC (NORMALS) SYSTOLIC (NORMALS) IVSd 1.5 (0.6-1.2) LA Diam 5.9 (1.9-4.0) LVEF 43% LVIDd 3.7 (3.5-5.7) LVIDs 2.9 (2.0-3.5) %FS 21% LVPWd 1.4 (0.6-1.2) Ao Diam 3.1 (2.0-3.7) 2 DIMENSIONAL ASSESSMENT: RIGHT ATRIUM: DILATED LEFT ATRIUM: SEVERE DILATED RIGHT VENTRICLE: DILATED LEFT VENTRICLE: MODERATE LEFT VENTRICULAR HYPERTROPHY TRICUSPID VALVE: SEVERE TRICUSPID REGURGITATION MITRAL VALVE: SEVERE MITRAL ANNULAR CALCIFICATION PULMONIC VALVE: MODERATE PULMONIC REGURGITATION AORTIC VALVE: SEVERE CALCIFIED PERICARDIAL EFFUSION: NONE AORTIC ROOT: NORMAL LEFT VENTRICULAR WALL MOTION: MILD GLOBAL HYPOKINESIS DOPPLER/COLOR FLOW: DIASTOLIC DYSFUNCTION COMMENTS: 1. MILDLY REDUCED LEFT VENTRICULAR SYSTOLIC FUNCTION, EJECTION FRACTION 40-45%, MILD GLOBAL HYPOKINESIS 2. SEVERE MITRAL ANNULAR CALCIFICATION WITH SEVERE MITRAL STENOSIS (MEAN GRADIENT 12 mmHg), MILD MITRAL REGURGITATION 3. SEVERE CALCIFIED AORTIC VALVE WITH SEVERE AORTIC STENOSIS 4. SEVERE PULMONARY HYPERTENSION (RIGHT VENTRICULAR SYSTOLIC PRESSURE GREATER THAN 60 mmHg) 5. ELEVATED FILLING PRESSURE (RIGHT ATRIAL PRESSURE 15-20 mmHg) 6. SEVERE TRICUSPID REGURGITATION 7. SEVERE ENLARGED LEFT ATRIUM. TECHNOLOGIST: AUREA MOYER
[2024-07-30] MEDS: SUCRALFATE 1 GM TABLET PO SCH (14:37)
[2024-07-30] MEDS: PANTOPRAZOLE 40MG TABLET PO SCH (16:29)
[2024-07-30 17:36] LABS: Absolute Lymphocytes (CBC) 0.6 K/uL (0.7-4.9); Absolute Monocytes 1.5 K/uL (0.1-1.3); Absolute Neutrophil 11.5 K/uL (1.8-8.0); Basophils % 0.1 % (0-1.3); Hematocrit 27.8 % (36.0-45.0); Hemoglobin 8.4 g/dL (12.0-15.0); Lymphocytes % 4.5 % (15.3-44.8); MCH 22.7 pg (27.0-35.0); MCHC 30.2 g/dL (32.0-36.0); MCV 75.2 fL (80-100); MPV 9.5 fL (7.6-11.3); Neutrophils % 84.4 % (41.7-73.7); Nucleated RBC Absolute Count 0.2 (0-0); Nucleated Red Blood Cells % 1.2 % (0-0); Percent Reticulocyte Count 2.88 % (0.4-2.05); Platelets 227 thou/uL (152-406); Red Cell Distribution Width 19.6 % (12.1-15.2)
[2024-07-30 18:18] LABS: ALT/SGPT 452 U/L (13-56); AST/SGOT 412 U/L (15-37); Albumin 3.4 g/dL (3.4-5.0); Albumin/Globulin Ratio 1.3 (1.1-1.8); Alkaline Phosphatase 172 U/L (45-117); Anion Gap 15.6 mEq/L (5.0-15.0); BUN Blood Urea Nitrogen 57 mg/dL (7-18); Bicarbonate 23 mEq/L (21-32); Bilirubin Total 1.9 mg/dL (0.2-1.0); Globulin 2.7 g/dL (2.3-3.5); Glomerular Filtration Rate 29 ml/min (=/>90); Glucose Level 165 mg/dL (74-106); Magnesium 2.3 mg/dL (1.6-2.4); Potassium 3.6 mEq/L (3.5-5.1); Protein, Total 6.1 g/dL (6.4-8.2); Sodium Level 135 mEq/L (136-145)
[2024-07-30] MEDS: MIRTAZAPINE 15 MG TAB PO SCH (20:49)
[2024-07-30] MEDS: ARFORMOTEROL TARTRATE 15 MCG/2 ML VIAL.NEB ONE (21:02)
[2024-07-30 23:48] LABS: Anisocytosis 1+; Band Neutrophils 2 % (0-1); Blood Morphology Comment NOTED (NOT SEEN); Differential Total Cells Count 100; Lymphocytes 3 % (15-42); Monocytes 5 % (0-10); Nucleated Red Blood Cells 1 /100WBC; Platelet Estimate ADEQ; Polychromasia 1+; Segmented Neutrophils 89 % (40-80)
[2024-07-31] MEDS: LEVOTHYROXINE SOD 0.075 MG TAB PO SCH (06:40)
[2024-07-31] MEDS: VENLAFAXINE HCL XR 75 MG CAP PO SCH (08:40)
[2024-07-31] MEDS: ARIPIPRAZOLE 2 MG PO SCH (08:47)
[2024-07-31] MEDS ORDERED: FUROSEMIDE 40 MG TABLET PO SCH (09:00)
[2024-07-31] MEDS: METOPROLOL XL 50 MG TAB PO SCH (09:00)
[2024-07-31] MEDS: SPIRONOLACTONE 25 MG TABLET PO SCH (09:00)
--- NOTE | 2024-07-31 11:39 | P.PN ---
Subjective Date of Service: 07/31/24 Chief Complaint: Decompensated CHF Subjective: No new changes, No C/O voiced, Tolerating diet, Ambulating, Improving Review of Systems 10-point ROS is otherwise unremarkable Physical Examination - Vital Signs Temperature: 97.6 F Blood Pressure: 114/58 Pulse: 70 Respirations: 20 Pulse Ox (%): 99 - Physical Exam General: Alert, In no apparent distress HEENT: Atraumatic, PERRLA, EOMI Neck: Supple, JVD not distended Respiratory: Clear to auscultation bilaterally, Normal air movement Cardiovascular: Regular rate/rhythm, Normal S1 S2 Gastrointestinal: Normal bowel sounds, No tenderness Musculoskeletal: No tenderness Integumentary: No rashes Neurological: Normal speech, Normal tone, Normal affect Lymphatics: No axilla or inguinal lymphadenopathy - Studies Medications List Reviewed: Yes Assessment And Plan - Current Problems (Diagnosis) (1) Acute on chronic diastolic heart failure Current Visit: No Status: Acute Plan: continue Lasix to 40 mg IV BID Continue Aldactone 25 mg daily continue Toprol XL 50 mg daily monitor input and output and electrolytes (2) Mitral stenosis Current Visit: No Status: Acute Plan: Patient is not a surgical candidate and not interested in any intervention continue medical treatment.
--- NOTE | 2024-07-31 12:24 | EKG ---
Test Date: 2024-07-27 Test Time: 21:41:51 Plastics Process Hand: MEASUREMENT RESULTS: Intervals: Rate: 72 AL: QRSD: 168 QT: 564 QTc: 617 Reagan: P: AL: QRS: -65 T: 116 INTERPRETIVE STATEMENTS: Electronic ventricular pacemaker Compared to ECG 06/28/2024 13:08:35 No significant changes Electronically Signed On 07-31-24 12:19:17 LOAN TELLER by Edy Schroeder
[2024-07-31] MEDS: ALPRAZOLAM 0.5 MG TABLET PO PRN (21:19)
--- NOTE | 2024-08-01 09:28 | P.PN ---
Subjective Date of Service: 08/01/24 Chief Complaint: Decompensated CHF Subjective: No new changes, No C/O voiced, Tolerating diet, Ambulating, Improving Review of Systems 10-point ROS is otherwise unremarkable Physical Examination - Vital Signs Temperature: 97.5 F Blood Pressure: 113/56 Pulse: 97 Respirations: 18 Pulse Ox (%): 92 - Physical Exam General: Alert, In no apparent distress HEENT: Atraumatic, PERRLA, EOMI Neck: Supple, JVD not distended Respiratory: Clear to auscultation bilaterally, Normal air movement Cardiovascular: Regular rate/rhythm, Normal S1 S2 Gastrointestinal: Normal bowel sounds, No tenderness Musculoskeletal: No tenderness Integumentary: No rashes Neurological: Normal speech, Normal tone, Normal affect Lymphatics: No axilla or inguinal lymphadenopathy - Studies Medications List Reviewed: Yes Assessment And Plan - Current Problems (Diagnosis) (1) Acute on chronic diastolic heart failure Current Visit: No Status: Acute Plan: switch lasix to 40 mg po BID on discharge. Continue Aldactone 25 mg daily continue Toprol XL 50 mg daily monitor input and output and electrolytes (2) Mitral stenosis Current Visit: No Status: Acute Plan: Patient is not a surgical candidate and not interested in any intervention continue medical treatment.
[2024-08-01] MEDS: ARFORMOTEROL TARTRATE 15 MCG/2 ML VIAL.NEB ONE (21:11)
--- NOTE | 2024-08-02 04:19 | P.PN ---
Subjective Date of Service: 07/30/24 Patient's respiratory status has improved. Clinically patient is feeling a little bit better. Patient denies any new complaints. Patient still gets short of breath on ambulation. Patient is not a surgical candidate at this time. Prognosis remains poor. Review of Systems 10-point ROS is otherwise unremarkable Physical Examination - Vital Signs Temperature: 98.1 F Blood Pressure: 122/71 Pulse: 75 Respirations: 17 Pulse Ox (%): 100 - Physical Exam General: Alert, In no apparent distress, Oriented x3 Respiratory: Normal air movement, Crackles/rales Cardiovascular: Regular rate/rhythm, Normal S1 S2, Systolic murmur Gastrointestinal: Normal bowel sounds, Soft and benign, No tenderness, Distended Musculoskeletal: No clubbing, No swelling, No tenderness Integumentary: Other ( Continue with bruising) Neurological: Other ( generalized weakness) - Studies Imagings Data: ECHOCARDIOGRAM COMMENTS: 1. MILDLY REDUCED LEFT VENTRICULAR SYSTOLIC FUNCTION, EJECTION FRACTION 40-45%, MILD GLOBAL HYPOKINESIS 2. SEVERE MITRAL ANNULAR CALCIFICATION WITH SEVERE MITRAL STENOSIS (MEAN GRADIENT 12 mmHg), MILD MITRAL REGURGITATION 3. SEVERE CALCIFIED AORTIC VALVE WITH SEVERE AORTIC STENOSIS 4. SEVERE PULMONARY HYPERTENSION (RIGHT VENTRICULAR SYSTOLIC PRESSURE GREATER THAN 60 mmHg) 5. ELEVATED FILLING PRESSURE (RIGHT ATRIAL PRESSURE 15-20 mmHg) 6. SEVERE TRICUSPID REGURGITATION 7. SEVERE ENLARGED LEFT ATRIUM. Medications List Reviewed: Yes Assessment & Plan - Problems (Diagnosis) (1) Combined systolic and diastolic cardiac dysfunction Current Visit: Yes Status: Acute (2) Cardiac cirrhosis Current Visit: Yes Status: Acute (3) Anxiety disorder Current Visit: No Status: Acute (4) Aortic stenosis Current Visit: No Status: Acute (5) CAD (coronary artery disease) Current Visit: No Status: Chronic (6) GERD (gastroesophageal reflux disease) Current Visit: No Status: Chronic (7) Hyperlipidemia Current Visit: No Status: Chronic Qualifiers: (8) Hypertension Current Visit: No Status: Chronic (9) Hypothyroidism Current Visit: No Status: Chronic Qualifiers: (10) Severe tricuspid regurgitation Current Visit: Yes Status: Acute (11) Severe mitral valve stenosis Current Visit: Yes Status: Acute (12) Severe pulmonary hypertension Current Visit: Yes Status: Acute (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 PATIENT WITH HEART FAILURE WITH REDUCED EJECTION FRACTION WELL EJECTION FRACTION OF 45%; PATIENT ALSO HAS SEVERE AORTIC STENOSIS WELL SEVERE MITRAL STENOSIS. PATIENT HAS SEVERE TRICUSPID REGURGITATION WELL SEVERE PULMONARY HYPERTENSION. PATIENT CARDIAC FUNCTION IS POOR AND PROGNOSIS IS VERY POOR. PATIENT MAY BENEFIT FROM HOSPICE CARE. HOWEVER, PATIENT WANTS TO DO INTERMEDIATE FACILITY AND TRY TO BUILD HER STRENGTH. LONG-TERM PROGNOSIS IS POOR. 2. CARDIAC CIRRHOSIS; PATIENT WITH ELEVATED ALT AND AST; BILIRUBIN ELEVATED WELL. COAGULATION PROFILE ELEVATED. PATIENT'S LIVER DISEASE IS VERY SEVERE. PATIENT APPEARS TO BE DEVELOPING MULTIORGAN FAILURE 3. HYPOXIC RESPIRATORY FAILURE; PATIENT WITH SEVERE PULMONARY HYPERTENSION; CONTINUE WITH O2 PER PROTOCOL 4. COPD; PATIENT WITH HYPOXIC RESPIRATORY FAILURE; CONTINUE WITH O2 PER PROTOCOL WELL NEB TREATMENTS ORDERED 5. GI DVT PROPHYLAXIS Discharge Plan: Residential Plan to discharge in: Greater than 2 days - Advance Directives Does patient have a Living Will: No Does patient have a Durable POA for Healthcare: No - Code Status/Comfort Care Code Status Assessed: Yes Code Status: Do Not Attempt Resuscitat Critical Care: No Time Spent Managing PTS Care (In Minutes): 40
--- NOTE | 2024-08-02 04:33 | P.PN ---
Date of Service: 07/31/24 Subjective PATIENT WORKING WITH PHYSICAL THERAPY. PATIENT GOT OUT OF BED AND AMBULATED. WORKING ON RETIREMENT FACILITY PLACEMENT. Physical Examination - Vital Signs REVIEWED - Physical Exam General: Alert, In no apparent distress, Oriented x3 Respiratory: Normal air movement, Crackles/rales Cardiovascular: Regular rate/rhythm, Normal S1 S2, Systolic murmur Gastrointestinal: Normal bowel sounds, Soft and benign, No tenderness, Distended Musculoskeletal: No clubbing, No swelling, No tenderness Integumentary: Other ( Continue with bruising) Neurological: Other ( generalized weakness) ECHOCARDIOGRAM COMMENTS: 1. MILDLY REDUCED LEFT VENTRICULAR SYSTOLIC FUNCTION, EJECTION FRACTION 40-45%, MILD GLOBAL HYPOKINESIS 2. SEVERE MITRAL ANNULAR CALCIFICATION WITH SEVERE MITRAL STENOSIS (MEAN GRADIENT 12 mmHg), MILD MITRAL REGURGITATION 3. SEVERE CALCIFIED AORTIC VALVE WITH SEVERE AORTIC STENOSIS 4. SEVERE PULMONARY HYPERTENSION (RIGHT VENTRICULAR SYSTOLIC PRESSURE GREATER THAN 60 mmHg) 5. ELEVATED FILLING PRESSURE (RIGHT ATRIAL PRESSURE 15-20 mmHg) 6. SEVERE TRICUSPID REGURGITATION 7. SEVERE ENLARGED LEFT ATRIUM. Medications List Reviewed: Yes Assessment & Plan - Problems (Diagnosis) (1) Combined systolic and diastolic cardiac dysfunction Current Visit: Yes Status: Acute (2) Cardiac cirrhosis Current Visit: Yes Status: Acute (3) Anxiety disorder Current Visit: No Status: Acute (4) Aortic stenosis Current Visit: No Status: Acute (5) CAD (coronary artery disease) Current Visit: No Status: Chronic (6) GERD (gastroesophageal reflux disease) Current Visit: No Status: Chronic (7) Hyperlipidemia Current Visit: No Status: Chronic (8) Hypertension Current Visit: No Status: Chronic (9) Hypothyroidism Current Visit: No Status: Chronic (10) Severe tricuspid regurgitation Current Visit: Yes Status: Acute (11) Severe mitral valve stenosis Current Visit: Yes Status: Acute (12) Severe pulmonary hypertension Current Visit: Yes Status: Acute (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 PATIENT WITH HEART FAILURE WITH REDUCED EJECTION FRACTION WELL EJECTION FRACTION OF 45%; PATIENT ALSO HAS SEVERE AORTIC STENOSIS WELL SEVERE MITRAL STENOSIS. PATIENT HAS SEVERE TRICUSPID REGURGITATION WELL SEVERE PULMONARY HYPERTENSION. PATIENT CARDIAC FUNCTION IS POOR AND PROGNOSIS IS VERY POOR. PATIENT MAY BENEFIT FROM HOSPICE CARE. HOWEVER, PATIENT WANTS TO DO RETIREMENT FACILITY AND TRY TO BUILD HER STRENGTH. LONG-TERM PROGNOSIS IS POOR. 2. CARDIAC CIRRHOSIS; PATIENT WITH ELEVATED ALT AND AST; BILIRUBIN ELEVATED WELL. COAGULATION PROFILE ELEVATED. PATIENT'S LIVER DISEASE IS VERY SEVERE. PATIENT APPEARS TO BE DEVELOPING MULTIORGAN FAILURE 3. HYPOXIC RESPIRATORY FAILURE; PATIENT WITH SEVERE PULMONARY HYPERTENSION; CONTINUE WITH O2 PER PROTOCOL 4. COPD; PATIENT WITH HYPOXIC RESPIRATORY FAILURE; CONTINUE WITH O2 PER PROTOCOL WELL NEB TREATMENTS ORDERED 5. GI DVT PROPHYLAXIS Discharge Plan: [facility] Plan to discharge in: Greater than 2 days - Advance Directives Does patient have a Living Will: No Does patient have a Durable POA for Healthcare: No - Code Status/Comfort Care Code Status Assessed: Yes Code Status: Do Not Attempt Resuscitation Critical Care: No Time Spent Managing PTS Care (In Minutes): 25
--- NOTE | 2024-08-02 04:36 | P.PN ---
Date of Service: 08/01/24 Subjective PATIENT CONTINUES TO WORK WITH PHYSICAL THERAPY. PATIENT HAS A POOR PROGNOSIS. CONTINUE WITH TREATMENT FOR CARDIAC DISEASE WELL NEBULIZER TREATMENTS. Physical Examination - Vital Signs reviewed - Physical Exam General: Alert, In no apparent distress, Oriented x3; JVP Respiratory: Normal air movement, Crackles/rales Cardiovascular: Regular rate/rhythm, Normal S1 S2, Systolic murmur Gastrointestinal: Normal bowel sounds, Soft and benign, No tenderness, Distended Musculoskeletal: No clubbing, No swelling, No tenderness Integumentary: Other ( Continue with bruising) Neurological: Other ( generalized weakness) ECHOCARDIOGRAM COMMENTS: 1. MILDLY REDUCED LEFT VENTRICULAR SYSTOLIC FUNCTION, EJECTION FRACTION 40-45%, MILD GLOBAL HYPOKINESIS 2. SEVERE MITRAL ANNULAR CALCIFICATION WITH SEVERE MITRAL STENOSIS (MEAN GRADIENT 12 mmHg), MILD MITRAL REGURGITATION 3. SEVERE CALCIFIED AORTIC VALVE WITH SEVERE AORTIC STENOSIS 4. SEVERE PULMONARY HYPERTENSION (RIGHT VENTRICULAR SYSTOLIC PRESSURE GREATER THAN 60 mmHg) 5. ELEVATED FILLING PRESSURE (RIGHT ATRIAL PRESSURE 15-20 mmHg) 6. SEVERE TRICUSPID REGURGITATION 7. SEVERE ENLARGED LEFT ATRIUM. Medications List Reviewed: Yes Assessment & Plan - Problems (Diagnosis) (1) Combined systolic and diastolic cardiac dysfunction Current Visit: Yes Status: Acute (2) Cardiac cirrhosis Current Visit: Yes Status: Acute (3) Anxiety disorder Current Visit: No Status: Acute (4) Aortic stenosis Current Visit: No Status: Acute (5) CAD (coronary artery disease) Current Visit: No Status: Chronic (6) GERD (gastroesophageal reflux disease) Current Visit: No Status: Chronic (7) Hyperlipidemia Current Visit: No Status: Chronic (8) Hypertension Current Visit: No Status: Chronic (9) Hypothyroidism Current Visit: No Status: Chronic (10) Severe tricuspid regurgitation Current Visit: Yes Status: Acute (11) Severe mitral valve stenosis Current Visit: Yes Status: Acute (12) Severe pulmonary hypertension Current Visit: Yes Status: Acute (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 PATIENT WITH HEART FAILURE WITH REDUCED EJECTION FRACTION WELL EJECTION FRACTION OF 45%; PATIENT ALSO HAS SEVERE AORTIC STENOSIS WELL SEVERE MITRAL STENOSIS. PATIENT HAS SEVERE TRICUSPID REGURGITATION WELL SEVERE PULMONARY HYPERTENSION. PATIENT CARDIAC FUNCTION IS POOR AND PROGNOSIS IS VERY POOR. PATIENT MAY BENEFIT FROM HOSPICE CARE. HOWEVER, PATIENT WANTS TO DO NURSING HOME FACILITY AND TRY TO BUILD HER STRENGTH. LONG-TERM PROGNOSIS IS POOR. 2. CARDIAC CIRRHOSIS; PATIENT WITH ELEVATED ALT AND AST; BILIRUBIN ELEVATED WELL. COAGULATION PROFILE ELEVATED. PATIENT'S LIVER DISEASE IS VERY SEVERE. PATIENT APPEARS TO BE DEVELOPING MULTIORGAN FAILURE 3. HYPOXIC RESPIRATORY FAILURE; PATIENT WITH SEVERE PULMONARY HYPERTENSION; CONTINUE WITH O2 PER PROTOCOL 4. COPD; PATIENT WITH HYPOXIC RESPIRATORY FAILURE; CONTINUE WITH O2 PER PROTOCOL WELL NEB TREATMENTS ORDERED 5. GI DVT PROPHYLAXIS Discharge Plan: [facility] Plan to discharge in: Greater than 2 days - Advance Directives Does patient have a Living Will: No Does patient have a Durable POA for Healthcare: No - Code Status/Comfort Care Code Status Assessed: Yes Code Status: Do Not Attempt Resuscitation Critical Care: No Time Spent Managing PTS Care (In Minutes): 25
[2024-08-02 07:21] LABS: Absolute Lymphocytes (CBC) 0.6 K/uL (0.7-4.9); Absolute Monocytes 1.1 K/uL (0.1-1.3); Absolute Neutrophil 7.4 K/uL (1.8-8.0); Basophils % 0.1 % (0-1.3); Eosinophils % 0.5 % (0-4.4); Hematocrit 27.6 % (36.0-45.0); Hemoglobin 8.3 g/dL (12.0-15.0); Lymphocytes % 6.5 % (15.3-44.8); MCHC 30.1 g/dL (32.0-36.0); MCV 76.5 fL (80-100); MPV 9.3 fL (7.6-11.3); Monocytes % 12.1 % (3.3-12.3); Neutrophils % 80.8 % (41.7-73.7); Nucleated RBC Absolute Count 0.1 (0-0); Nucleated Red Blood Cells % 0.8 % (0-0); Platelets 205 thou/uL (152-406); RBC Red Blood Cell Count 3.61 M/uL (3.86-4.86); Red Cell Distribution Width 20.4 % (12.1-15.2)
[2024-08-02 07:22] LABS: PT Prothrombin Time 15.8 SECONDS (9.4-12.5); PTT, Activated Partial Thromb 40.6 SECONDS (24.3-36.9); Protime INR 1.51
[2024-08-02 07:39] LABS: Albumin/Globulin Ratio 1.3 (1.1-1.8); Anion Gap 9.6 mEq/L (5.0-15.0); Bilirubin Total 1.6 mg/dL (0.2-1.0); Globulin 2.3 g/dL (2.3-3.5); Magnesium 2.1 mg/dL (1.6-2.4); Protein, Total 5.3 g/dL (6.4-8.2)
[2024-08-02 07:46] LABS: Potassium 2.6 mEq/L (3.5-5.1)
[2024-08-02] MEDS ORDERED: POTASSIUM 25 MEQ EFFERV TAB PO ONE (08:30)
[2024-08-02] MEDS: POTASSIUM 25 MEQ EFFERV TAB PO ONE (10:58)
[2024-08-02] MEDS: NA CHLORIDE 0.9% 250 ML ONE (14:37)
[2024-08-02] MEDS: KCL 20 MEQ/100 mL IVPB 100 ML IV SCH (14:37)
[2024-08-02] MEDS: ARFORMOTEROL TARTRATE 15 MCG/2 ML VIAL.NEB ONE (21:47)
[2024-08-03] MEDS: FUROSEMIDE 20 MG TABLET PO SCH (08:39)
[2024-08-03] MEDS: ARIPIPRAZOLE PO SCH (08:39)
[2024-08-04 12:07] VITALS: O2SAT 100
[2024-08-04 12:45] VITALS: BP 136/72; TEMP 96.2
[2024-08-05] MEDS ORDERED: SPIRONOLACTONE 25 MG TABLET PO SCH (09:00)
== END 2024-08-04 13:40 | disposition hospice, inpatient (51) | DRG 291 ==
LOC: ER 19:56 → ERHOLD 07-28 00:34 → 4TH 07-28 02:40
PROVIDERS: ADMIT Internal Medicine; ATTEND Hospitalist
PROC: 4A033R1 Measurement of Arterial Saturation, Peripheral, Percutaneous Approach (ICD-10-PCS; principal; 2024-07-28)
DX: I11.0 Hypertensive heart disease with heart failure (principal); I50.33 Acute on chronic diastolic (congestive) heart failure; J96.91 Respiratory failure, unspecified with hypoxia; N17.9 Acute kidney failure, unspecified; E03.9 Hypothyroidism, unspecified; E78.5 Hyperlipidemia, unspecified; E87.6 Hypokalemia; D50.9 Iron deficiency anemia, unspecified; F41.9 Anxiety disorder, unspecified; I08.0 Rheumatic disorders of both mitral and aortic valves; K76.1 Chronic passive congestion of liver; I27.20 Pulmonary hypertension, unspecified; J43.9 Emphysema, unspecified; C43.9 Malignant melanoma of skin, unspecified; K21.9 Gastro-esophageal reflux disease without esophagitis; I25.10 Atherosclerotic heart disease of native coronary artery without angina pectoris; Z66 Do not resuscitate; Z51.5 Encounter for palliative care; Z95.0 Presence of cardiac pacemaker; Z88.1 Allergy status to other antibiotic agents; Z88.8 Allergy status to other drugs, medicaments and biological substances; Z79.52 Long term (current) use of systemic steroids; Z79.890 Hormone replacement therapy; Z79.899 Other long term (current) drug therapy; Z89.021 Acquired absence of right finger(s)
CPT/HCPCS: 36415; 36600; 71045; 71275; 80048; 80053; 80061; 82607; 82728; 82805; 83540; 83735; 83880; 84100; 84132; 84466; 84484; 85025; 85044; 85379; 85610; 85730; 86850; 86900; 86901; 93005; 93306; 93970; 94640; 96360; 96361; 97116; 97161; 97165; 97530; 99285; J1644; J1940; J2405; J2470; J2916; J3480; J7040; J7050; J7605; Q9967